=== PATIENT | male | born 1955 | race Caucasian/White ===

== ENCOUNTER 2023-10-10 05:22 | Inpatient (IN) ==
[2023-10-10] MEDS ORDERED: MIDAZOLAM HCL 5 MG/ML 2ML VIAL IV ONE (08:43)
[2023-10-10] MEDS ORDERED: ETOMIDATE 2 MG/ML 20 ML VIAL IV ONE (08:43)
--- NOTE | 2023-10-10 10:57 | Critical Care Consultation ---
Date of Consultation October 10, 2023 Assessment & Plan (1) ARF (acute renal failure): (2) HTN (hypertension): (3) CHF (congestive heart failure): (4) COPD (chronic obstructive pulmonary disease): (5) Sepsis: (6) Acute hypoxic respiratory failure: Plan Assessment: Pt is a 67 yo male who presented to the hospital on 10/09 from [facility] for respiratory distress and possible sepsis/septic shock, admitted to the ICU for need for pressors and for need for mechanical ventilation due to worsening resp status. Critical care indication: Need for mechanical ventilation Need for pressor support Plan: Neurologic CAM ICU: pt intubated Sedation: none Analgesia: none Cardiac BPs noted to be low, Levophed and phenylephedrine ggt Tachycardic as well, trop at facility 62, here is 81.7, repeat pending Last echo unknown, pending has known hx of CHF per outside facility but unclear if he has been following with any all round logger for this Respiratory Hx COPD, pt notes 3L baseline O2 use and has a CPAP/bipap at night worsening resp status at this point is COPD exac vs CHF exac vs possible pneumonia vs iatrogenic with concurrent renal failure and worsened status after morphine, but may also be a mix of several etiologies ABG notable for resp acidosis with underlying metabolic alkalosis CXR notable for bilateral airspace opacities likely pulm edema but may have superimposed infectious/inflammatory component, R>L pleural effusions, Pt was intubated this afternoon 10/09 due to worsening resp status Gastrointestinal Diet: NPO Renal/electrolytes Cr from outside facility noted to be 4.76, here 4.44, no baseline available Acute renal failure in the setting of CXR findings suggestive of congestive failure, nephro consulted and defer dialysis for now UA shows + leukocyte est and nitrites as well as blood and protein so UTI present which may or may not be contributing to his overall worsening condition UA also remarkable for blood and calc oxalate crystals and further hx notes urinary frequency and difficulty the past few days, so may have stone/possible obstruction, CT abd deferred at this time, but once pt stabilizes will consider for further workup of stones Genitourinary Despite remarkable kidney function he is producing urine Robertson catheter draining urine at this time Strict I/O's Endocrine Insulin per protocol Hematologic Hgb 9.9 at outside facility, 8.4 today Unknown baseline hgb, will continue to trend for signs of active bleeding but at this time no clear source Infectious disease WBC count at outside facility was 41, 44 here today Was febrile at sending facility and became febrile here as well, procal was noted to be 81.3 source may be urinary or pulm MRSA nares positive Biofire wnl, blood cultures pending Integumentary Noted to have some redness like rash under R > L breast tissue fold Lines/access IJ cath in place Prophylaxis DVT ppx: peferred at this time with question of bleed GI ppx: protonix IV Thank you the opportunity to participate in this patient's care. Please see attending documentation for further recommendations. Supervising Physician Co-Signing Physician Notes Patient seen and examined. EMR reviewed. Discussed extensively with critical care JUANITA as well as with family practice resident and agree with assessment plan as noted. 67-year-old male with minimal medical history in our system transferred from outside hospital due to acute renal failure, hypoxemic respiratory failure, and hypotension requiring vasopressors. On arrival repeat labs were performed which confirmed leukocytosis as well as acute renal failure. Nephrology consultation has been obtained. An arterial line was placed. He is required escalating doses of vasopressors. Quick look echocardiogram revealed relatively preserved ejection fraction. Unclear how much crystalloid he got in the outpatient setting however he has pulmonary infiltrates so defer additional fluids at this point in time. He required central line placement due to requirement for 2 vasopressor agents. We are awaiting repeat labs. If he goes on to develop dense renal failure which would require renal replacement therapy, he will need to be transferred to a tertiary facility as he is 2 pressor requirements would likely necessitate need for CVVH which not available at our institution. As the patient's hemodynamics deteriorated he continued to be dependent on BiPAP with respiratory acidosis. Decision was made to intubate. Please refer to separate procedure notes. He is currently sedated. Await follow-up labs. Will continue antibiotics. Check random Vanco level. Random cortisol was appropriate. He is intubated may consider noninvasive cardiac output evaluation to see whether or not he still fluid responsive or not. Awaiting echocardiogram. Trend cardiac markers. Family updated at bedside. They are aware the patient may need to be transferred to an outside facility History of Present Illness Reason for Consultation: Respiratory failure Requesting Physician: Dr. Rex Ritter Attending Physician: Ju M Landon, DO History of Present Illness Pt is a 67 yo male with a past med hx of COPD on 3L O2 baseline, CHF, and HLD who presented to [facility] 10/08 for 1 week of weakness, worsening shortness of breath, and fall without head trauma, transferred to [facility] on 10/09 for worsening respiratory status. Per hospital records from [facility], pt noted to have had 1 week of generalized weakness, fatigue, and increased shortness of breath. He is on 3L O2 baseline for his COPD and experienced a fall onto his butt several days ago without head trauma. Per outside facility note, pt's noted he has been spacing out the last week or so as well. Concern with tachycardia, worsening resp status, and hypotension, and fever with marked leukocytosis for sepsis/septic shock. Got 2 L crystalloid fluids at facility and while on route was given morphine with drop in blood pressure and worsening alertness. WBC count at noted to be 41, Cr 4.76 with no noted hx of CKD. Today, pt arrives groggy but arousable to verbal stimuli, answering questions appropriately. States he only currently has pain over his buttock area right n ow. In respiratory distress on bipap. Allergies Allergy/AdvReac Type Severity Reaction Status Date / Time No Known Allergies Allergy Unknown Verified 10/13/03 16:57 Patient History Social History Smoking Status: Former smoker Hx Alcohol Use: Yes Alcohol type: beer Hx Substance Use: No Preferred Language: Bengali Communication Ability: Effective Commercial Sales Representative Required: No Beliefs That Will Affect Care: None Current Living Situation: Spouse Other Information That Helps Us Care for You: No Feels Safe at Home: Yes Safety Concerns: Feels Safe At This Time Assistive Devices: Cane, CPAP, Denture - Upper, Denture - Lower, Glasses and Walker Review of Systems Review of Systems: All systems reviewed & are unremarkable except as noted in HPI & below Physical Exam Physical Exam: General: Pt is groggy, but awakens to verbal stimuli and responds appropriately, now intubated and on mechanical vent, diaphoretic HEENT: Normocephalic, atraumatic, Resp: On vent, Cardio: Regular rhythm but tachycardic, no murmurs, pitting edema noted bilaterally GI: Soft and nontender, nondistended, bowel sounds active Skin: Warm, dry, red rash/skin irritation noted under R>L skin below breast fold Resident Activity Tracking Resident Involvement: Resident Care Provided Care Provided: Adult Hospital Medicine
--- NOTE | 2023-10-10 11:06 | History & Physical Report ---
Date of Service October 10, 2023 Assessment & Plan (1) Sepsis: Plan: Sepsis, suspect pneumonia At [facility] with an acute leukocytosis of 41, normal lactate, x-ray concerning for right middle lobe pneumonia Repeat labs pending at time of direct admission Chest x-ray: Bilateral airspace opacities and right greater than left pleural effusions consistent with CHF/fluid overload, consolidative pneumonia cannot be excluded Patient is with a severe acute respiratory acidosis and chronic underlying metabolic alkalosis on admission Received 2 L crystalloid for sepsis resuscitation prior to transfer. Additional fluids not indicated admission as he had initial resuscitation at outside hospital and is overtly volume overloaded Due to hypotension with concurrent fluid overload, norepinephrine has been started in the ICU Blood cultures, sputum culture, bio fire, procalcitonin are pending MRSA nares pending - On cefepime On BiPAP - DDx includes urinary. Pt with resp sx preceding admit for at least 2 days. UA is infected appearing and PCT is >80 consistent with gram negative sepsis. Bcx pending (2) ARF (acute renal failure): Plan: No known history of kidney dysfunction per patient's Presents with acute volume overload, hyperkalemia at 5.1, and creatinine acutely elevated greater than 4 at outside hospital. Per he has been an uric for more than 48 hours Nephrology consulted, patient may require temporary dialysis due to acute volume overload with hyperkalemia and renal failure. Patient has been hypotensive now improved on pressors, follow UOP. 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 Echo pending Patient with acute volume overload with concurrent renal failure. Nephrology consulted as noted - Troponin 81, repeat 320. No territorial ischemia on EKG. LIkely severe demand with critical illness/sepsis. Echo pending EKG sinus tach first degree AVB (6) HTN (hypertension): Plan: Lisinopril held for renal failure, sepsis, and hypotension requiring pressors Plan DVT prophylaxis: SCDs, pending evaluation due to falls and hemoglobin less than 10 Admission and Anticipated Discharge Date Admission Date: October 10, 2023 History of Present Illness Primary Care Provider: DO Terrance Tavarez is a 67-year-old male with past medical history of COPD, CHF, emphysema who is excepted overnight as a transfer from [facility] where he presented with fever, confusion, hypoxia, and falls. At that facility he was febrile, tachycardic, hypoxic to the 60s, and was reported to have a white blood cell count of 41 and creatinine of 4.9 (confirmed on paperwork to be less than 1), and with potassium of 4.9. Patient was treated at that facility with 2 L of crystalloid, Zosyn, and vancomycin. Placement was placed on BiPAP for respiratory distress. Due to concern for his respiratory status, potential need for intubation patient was recommended for transfer where critical care services were available. Patient was accepted for transfer overnight and arrived at the ICU at approximately 10:30 AM on 10/09. Patient had received a dose of morphine with some sedation and worsened hypotension while in room. Discussed by dimitris with [facility]. - CBC 0146hrs: Leukocyte count 41, hgb 9.9 - Creatinine: 4.76 - Lactic 1.3 - Blood Cultures: Drawn at 0016, ngtd - No prior labs for comparison. Collateral collected from patient's Paradise Dueñas who is available at time of admission. She is also billable by phone at [phone] for updates. She reports that Terrance has a history of COPD and CHF. He is not on any blood thinners other than aspirin and has not had a history of blood clots. He does have a history of heart failure without prior history of stents or heart attack, is generally compliant with his Lasix. She reports he was in his normal state of health up until about 4 days ago. At that time he was trying to clean under a table when he fell and struck his buttock. He had had low back pain and sciatica although she does not remember which side. He did not have a head strike or loss of consciousness. Was doing okay until Saturday, but again slipped and fell striking his abdomen on the counter and did not seem to recover strength from that time. He was not having any cough, fever, or chills at that time. Approximately 2 days ago/Saturday prior to admission he did start to develop increased cough, thick and sputum production, chills, and felt clammy. His breathing worsened and his normal COPD cough seemed much worse. He did not have any bleeding that she was aware of and did not syncopize. He did not improve over the next day, and then became very confused and talking on the phone did not recognize who she was. Due to his worsening and confusion they then presented to [facility]. She confirms this medications are aspirin 81 mg, Trelegy inhaler, nebulizers with albuterol as needed, lisinopril 20 mg, Lasix 40 mg, oxy/apap for back pain. No blood thinners/warfarin/DOAC. His PCP is Dr. Mcgrath in [place] He has no history of renal failure to her knowledge, and she believes that his last blood work his kidney numbers were normal. His creatinine of greater than 4 is believed to be new. She notes that for the 24 hours prior to presenting to [facility] he did not have any urine production at all despite taking his Lasix. Medical History: Reviewed Medications: Reviewed Surgical History: Reviewed Family history: Reviewed Allergies: Reviewed. No known drug allergies Social History: Remote tobacco abuse in remission. Rare social alcohol use once or twice a year. No recreational drug use Code Status: Full code [facility] lab review: Vitals: 38.6/131 bpm/respiratory rate 30/BP 110/72/SpO2 97% on nonrebreather, hypoxic at 70% prior. ABG pH 7.25/pCO2 63 Chest x-ray:? Obscured right heart border silhouette suspicious for pleural effusion versus underlying consolidative process BP 90/50 ABG 0345 hrs.: pH 7.25/pCO2 63/pO2 77/HCO3 26.9 VBG 0424 hrs.: pH 7.23/pCO2 68/HCO3 27.7 Allergies Allergy/AdvReac Type Severity Reaction Status Date / Time No Known Allergies Allergy Unknown Verified 10/13/03 16:57 Past Med/Surg History Problem List (Updated 10/10/23 @ 15:21 by Sugey Guerrier DO) Acute hypoxic respiratory failure ARF (acute renal failure) HTN (hypertension) CHF (congestive heart failure) COPD (chronic obstructive pulmonary disease) Pneumonia Sepsis Social History Smoking Status: Former smoker Hx Alcohol Use: Yes Alcohol type: beer Hx Substance Use: No Preferred Language: Mauritian Communication Ability: Effective Locker Attendant Required: No Beliefs That Will Affect Care: None Current Living Situation: Spouse Other Information That Helps Us Care for You: No Feels Safe at Home: Yes Safety Concerns: Feels Safe At This Time Assistive Devices: Cane, CPAP, Denture - Upper, Denture - Lower, Glasses and Walker Physical Exam Physical Exam: General: Somnolent, gradually improving in ICU but initially obtunded on BiPAP HEENT: Atraumatic, normocephalic.. Vision and hearing grossly intact Pulm: On BiPAP. Coarse. Cardiac: Tachycardic. Radial pulses intact and symmetrical. Abdominal: Nontender, nondistended, soft. BS present. No overlying contusions are noted PG Care Time/CCT Total # of Minutes Spent Total Time Spent with Patient: Total time spent is greater than 50% in coordination of care (as documented) at patient's floor/unit and/or counseling patient: Coding Level of Care Code 03977 INT INP/OBS CARE 75MIN Diagnoses Sepsis A41.9 ARF (acute renal failure) N17.9 Pneumonia J18.9 COPD (chronic obstructive pulmonary disease) J44.9 CHF (congestive heart failure) I50.9 HTN (hypertension) I10
[2023-10-10 11:08] LABS: iSTAT Allen Test Pass; iSTAT Art Bld Gas pCO2 Correct 71 mmHg (35-46); iSTAT Art Bld Gas pH Corrected 7.186 (7.35-7.45); iSTAT Arterial Blood Gas HCO3 27 meg/L (19-24); iSTAT Arterial Blood Gas pCO2 68 mmHg (35-46); iSTAT Arterial Blood Gas pO2 85 mmHg (80-95); iSTAT Arterial Blood Gas pO2 C 91; iSTAT Carbon Dioxide 29 mmol/L (24-31); iSTAT FiO2 70 %; iSTAT Hematocrit 30 % (42-52); iSTAT Hemoglobin 10.2 g/dl (14.0-18.0); iSTAT Potassium 5.1 mmol/L (3.3-5.0); iSTAT Site R Radial; iSTAT Sodium 131 mmol/L (135-144)
--- NOTE | 2023-10-10 11:33 | XRay Report ---
SINGLE VIEW CHEST CLINICAL HISTORY: Hypoxia FINDINGS: An AP, portable, semiupright chest radiograph is obtained. No prior studies are available f or comparison at the time of dictation. The cardiomediastinal silhouette is top normal for projection . There is pulmonary vascular congestion. Bilateral airspace opacities are noted. There are layering pleural effusions with dependent consolidation, right larger than left. No pneumothorax is seen. The bony thorax is grossly intact. IMPRESSION: 1. There is evidence of congestive failure. 2. Bilateral airspace opacities likely represent pulmonary edema. Correlate clinically for evidence o f a superimposed infectious/inflammatory pneumonitis. Radiographic follow-up to resolution is recomme nd. 3. Right larger than left pleural effusions with dependent consolidation. ACT 112: Negative or not required by law. Electronically signed by: Mehrdad Arteaga M.D. 10/10/2023 11:31 AM
[2023-10-10 12:01] LABS: Alanine Aminotransferase 41 U/L (7-52); Albumin Globulin Ratio 0.9 (0.9-2); Albumin Level 2.6 gm/dl (3.4-5.0); Alkaline Phosphatase 99 U/L (34-104); Anion Gap 10 (3-11); Aspartate Aminotransferase 101 U/L (13-39); BUN Creatinine Ratio 13.1 (10-20); Bilirubin,Total 0.7 mg/dl (0.2-1.0); Blood Urea Nitrogen 58 mg/dl (6-23); Calcium 6.8 mg/dl (8.6-10.3); Carbon Dioxide 21 mmol/L (21-32); Chloride 104 mmol/L (98-107); Est GFR (African American) 14.9 ml/min; Est GFR (Non-African American) 12.9 ml/min; Globulin 2.9 gm/dl (2.5-4.0); Glucose 164 mg/dl (70-99(Fasting)); Magnesium 1.7 mg/dl (1.7-2.4); Phosphorus 4.5 mg/dl (2.5-4.9); Potassium 4.3 mmol/L (3.5-5.1); Sodium 135 mmol/L (136-145); Total Protein 5.5 gm/dl (6.0-8.3)
[2023-10-10 12:03] LABS: Hematocrit (blood only) 27.3 % (42.0-52.0); Hemoglobin 8.4 g/dl (14.0-18.0); Mean Corpuscular Hemoglobin 25.8 pg (25.0-34.0); Mean Corpuscular Hgb Conc 30.8 g/dL (32.0-36.0); Mean Platelet Volume 10.2 fL (9.4-12.4); Platelet Count 215 K/uL (130-400); RDW Coefficient of Variation 15.7 % (11.5-14.5); Red Blood Count 3.25 M/uL (4.70-6.10); White Blood Count 44.11 K/ul (4.8-10.8)
[2023-10-10 12:09] LABS: Acanthocytes 1+; Basophils # (auto) 0.04 K/uL (0.00-0.20); Basophils % (auto) 0.1 %; Immature Granulocytes # (auto) 1.65 K/uL (0.01-0.20); Immature Granulocytes % (auto) 3.7 %; Lymphocytes # (auto) 1.15 K/uL (1.20-3.40); Lymphocytes % (auto) 2.6 %; Monocytes % (auto) 3.2 %; Neutrophils # (auto) 39.87 K/uL (1.40-6.50); Neutrophils % (auto) 90.4 %; Polychromasia 1+; Rouleaux 1+; Toxic Vacuolation 1+
[2023-10-10 12:10] LABS: INR 1.1 (0.9-1.1); Prothrombin Time 11.7 Seconds (9.0-12.0)
[2023-10-10 12:14] LABS: Troponin I High Sensitivity 81.7 pg/ml (0-20)
[2023-10-10] MEDS ORDERED: STAT IV Infusion **Titration per Protocol STA ×5 (12:15→16:05)
[2023-10-10] MEDS: PANTOprazole 40 MG in SYRINGE 0 ML IV SCH (12:21)
[2023-10-10] MEDS: Patient's HEIGHT &/or WEIGHT Needed SCH (12:21)
[2023-10-10] MEDS: NOREPINEPHRINE/D5W 4 MG/250 ML PLCT IV SCH (12:24)
[2023-10-10] MEDS ORDERED: GLUCAGON FOR INJ 1 MG VIAL SQ PRN (12:24)
[2023-10-10] MEDS ORDERED: GLUCOSE 40% GEL 15 GM TUBE PO PRN (12:24)
[2023-10-10] MEDS ORDERED: DEXTROSE 50% 50 ML SYRINGE IV PRN (12:24)
[2023-10-10] MEDS ORDERED: CARBOHYDRATES FOR HYPOGLYCEMIA PO PRN (12:24)
[2023-10-10] MEDS ORDERED: GLUCOSE 10 TAB/TUBE PO PRN (12:24)
--- NOTE | 2023-10-10 12:30 | Procedure Note ---
Procedure Note Date of Service October 10, 2023 Note Procedure: Arterial Line Placement Attending: Dr. Hutton APC: Rachid Kim PA-C Indication: Hemodynamic monitoring Anesthesia: Lidocaine 1% Emergent Consent implied in the setting of clinical deterioration and need for close hemodynamic monitoring, ABG monitoring, frequent lab draws, etc. A time-out was completed verifying correct patient, procedure, site, positioning, and implant(s) or special equipment if applicable. Jez's test was performed to ensure adequate perfusion. Patient's LEFT wrist was prepped and draped in the usual sterile fashion. Ultrasound guidance was used to aid needle placement. A 20g Arrow arterial line was introduced into the LEFT Radial artery. Catheter was threaded, and the needle was removed with appropriate blood return. Good waveform was observed. The patient tolerated the procedure well. Confirmati on of placement with ultrasound. Blood Loss: Minimal Complications: None Procedural Ultrasound Guidance: Procedure Date: 10/10/2023 Indication: Hemodynamic Monitoring, Frequent ABGs/Lab draws. Attending: Dr. Hutton APC: Rachid Kim PA-C Artery Identified: YES Line confirmed in Artery with ultrasound: YES Complications: NONE Patient tolerated procedure: WELL Coding CPT Codes Tubes, Drains, and Vasc Access - Tubes, Drains, and Vasc Access: [id number] Arterial Cath/Cannulation Sampling/Monitoring/Transfusion ([id number]) [facility] [place] Procedure Codes (Charges) Tubes, Drains, and Vasc Access Procedure 1: Tubes, Drains, and Vasc Access: [id number] Arterial Cath/Cannulation Sampling/Monitoring/Transfusion
[2023-10-10 12:31] LABS: Appearance Urine Turbid (Clear); Bacteria Urine Automated None Seen (None Seen); Bilirubin Urine 1+ (Negative); Blood Urine 3+ (Negative); Color Urine Dark Yellow; Glucose Urine UA 1+ (Negative); Ketones Urine Trace (Negative); Leukocyte Esterase Urine 1+ (Negative); Nitrite Urine Negative (Negative); Protein Urine 2+ (Negative); RBC Urine Automated >20 /hpf (0-2); Specific Gravity Urine 1.033 (1.000-1.030); Urobilinogen Urine Negative (Negative)
[2023-10-10] MEDS: INSULIN ASPART PER UNIT CHARGE SC SCH (12:43)
[2023-10-10] MEDS: ACETAMINOPHEN 1,000 MG/100 ML VIAL IV STA (12:43)
[2023-10-10 12:45] LABS: Calcium Oxalate Crystals Urine Present (None Prsent)
[2023-10-10] MEDS: NALOXONE HCL 0.4 MG/1 ML VIAL/CARP ONE (12:50)
[2023-10-10] MEDS: ICU Protocol for HYPERglycemia SCH (12:51)
[2023-10-10] MEDS: VASOPRESSIN 20 UNITS in 0.9 % SODIUM CHLORIDE 100 ML IV SCH (12:55)
[2023-10-10 13:00] LABS: Adenovirus PCR Not Detected (NotDetected); Bordetella parapertussis PCR Not Detected (NotDetected); Bordetella pertussis PCR Not Detected (NotDetected); Chlamydia pneumoniae PCR Not Detected (NotDetected); Coronavirus 229E PCR Not Detected (NotDetected); Coronavirus CoV-2 (COVID19)PCR Not Detected (NotDetected); Coronavirus HKU1 PCR Not Detected (NotDetected); Coronavirus NL63 PCR Not Detected (NotDetected); Coronavirus OC43PCR Not Detected (NotDetected); Human Metapneumovirus PCR Not Detected (NotDetected); Influenza A PCR Not Detected (NotDetected); Influenza B PCR Not Detected (NotDetected); Mycoplasma pneumoniae PCR Not Detected (NotDetected); Parainfluenza Virus 1 PCR Not Detected (NotDetected); Parainfluenza Virus 2 PCR Not Detected (NotDetected); Parainfluenza Virus 3 PCR Not Detected (NotDetected); Parainfluenza Virus 4 PCR Not Detected (NotDetected); Respiratory Syncytial VirusPCR Not Detected (NotDetected); Rhinovirus/Enterovirus PCR Not Detected (NotDetected)
--- NOTE | 2023-10-10 13:10 | Nephrology Consultation ---
Date of Consultation October 10, 2023 Assessment & Plan (1) ARF (acute renal failure): Plan 67-year-old gentleman with no history of CKD, b/l cr 1.0 mg/dl admitted with sepsis secondary to pneumonia and developed LUCY and hyperkalemia. On admission creatinine was 4.4, potassium 5.1 and bicarb 21. Was significantly hypotensive with systolic blood pressure in 80s which slightly improved and currently requiring 2 pressor. Total urine output over last 24 hours around 450 mL. Cli nically volume overloaded with pulmonary congestion and bilateral pleural effusion as well as pneumonia. Repeat labs showed potassium improved to 4.3, bicarb 21. Blood pressure slightly improved but currently requiring 2 pressor. Urine output remains low. --Continue hemodynamic support with pressors, aim to keep MAP above 65. No pressing indication for emergency dialysis at this time. However, with improvement in blood pressure, if urine output does not improve, recommend Bumex 4 mg iv x 1 dose. However if still volume overloaded with no response and any electrolyte abnormality, may need temporary dialysis catheter and emergency dialysis. --Monitor intake and output, continue to monitor electrolyte closely. Thank you for allowing me to participate in your patient's care. History of Present Illness Reason for Consultation: Acute kidney injury, hyperkalemia, oligoanuria, sepsis Attending Physician: Ju Navarrete DO History of Present Illness Mr. Terrance Dueñas is a 67-year-old male with PMH of COPD, CHF, emphysema, obesity admitted with septic shock and Lucy possibly secondary to pneumonia. Nephrology consult requested for management of above and evaluate for need for urgent dialysis. EMR records were reviewed in detail during visit. Terrance was initially presented to [facility] where he presented with 2 days history of cough, fever, chills, worsening shortness of breath, confusion, hy poxia, and fall at home. Overnight he was transferred to [facility]. At [facility] he was febrile, tachycardic, hypoxic to the 60s, and was reported to have a white blood cell count of 41 and creatinine of 4.9 ( baseline cr was reported to be 1.0). He was treated at that facility with 2 L of crystalloid, Zosyn, and vancomycin. He was placed on BiPAP for respiratory distress. Due to concern for his respiratory status, potential need for intubation, he was transfer here. Prior to going to the hospital for almost 24 hours he was an uric despite taking diuretics. Report from outside hospital showed he had 400 mL of urine output while he was there and since he came here he had around 40 mL of urine output so far. Blood pressure was in low 80s, started on Levophed with slight improvement in blood pressure to 120s. Initial lab showed potassium of 5.1 which slightly improved to 4.3 on repeat lab. Creatinine was 4.4 bicarbonate 21, corrected calcium was 7.8. Chest x-ray showed pulmonary vascular congestion, bilateral pleural effusion and consolidation. He was continued on empiric antibiotic and started on BiPAP. Past medical history significant for COPD, CHF, hypertension and obesity. No known history of CKD, according to the report baseline creatinine until recently was 1.0. h/o CHF, has been on Lasix. At home he was on lisinopril 20 mg, Lasix 40 mg. He was seen while in ICU, wearing CPAP but denied any shortness of breath. Urine output was low. Allergies Allergy/AdvReac Type Severity Reaction Status Date / Time No Known Allergies Allergy Unknown Verified 10/13/03 16:57 Patient History Social History Smoking Status: Former smoker Hx Alcohol Use: Yes Alcohol type: beer Hx Substance Use: No Preferred Language: [place] Communication Ability: Effective Janitorial Assistant Required: No Beliefs That Will Affect Care: None Current Living Situation: Spouse Other Information That Helps Us Care for You: No Feels Safe at Home: Yes Safety Concerns: Feels Safe At This Time Assistive Devices: Cane, CPAP, Denture - Upper, Denture - Lower, Glasses and Walker Review of Systems Review of Systems: Detailed review of system was done and pertinent positives and negatives are mentioned above. Physical Exam Constitutional: WD/WN, vitals as above + acute distress and + ill appearing wearing BiPAP Eyes: + anicteric sclerae Respiratory: Auscultation: + diminished lung sounds and + crackles Cardiovascular: Rate/Rhythm: regular rate and + tachycardic Extremities: + edema Gastrointestinal (Abdomen): abdomen obese, soft, non tender. Musculoskeletal: Extremities: extremities normal to inspection Skin: no rashes, warm and dry Neurologic: no focal motor deficits Psychiatric: Orientation: alert and oriented x 3 Affect: euthymic affect Results & Data Vital Signs (Past 12 Hours) Vital Signs Temp Pulse Resp BP Pulse Ox O2 Del Method FiO2 10/10/23 12:30 38.4 C H 105 H 20 88 L 10/10/23 12:12 121/68 10/10/23 12:00 106 H 22 91 10/10/23 11:30 102 H 22 92 10/10/23 11:30 87/34 L 10/10/23 11:16 105 H 25 H 93 10/10/23 11:16 79/29 L 10/10/23 11:04 113 H 26 H 94 60 10/10/23 11:02 77/28 L 10/10/23 11:02 77/28 L 10/10/23 11:02 112 H 21 92 10/10/23 10:45 113 H 22 97 BiPAP 60 10/10/23 10:45 98/71 L PG Care Time/CCT Total # of Minutes Spent Total Time Spent with Patient: Total time spent is greater than 50% in coordination of care (as documented) at patient's floor/unit and/or counseling patient: Coding Level of Care Code 10365 IN/OBS CONSULT LVL 5,80M Diagnoses ARF (acute renal failure) N17.9
[2023-10-10 13:38] LABS: Creatine Kinase 3841 U/L (30-223)
[2023-10-10] MEDS ORDERED: Nursing to Pharmacy Communication SCH ×2 (13:45→15:00)
--- NOTE | 2023-10-10 13:48 | Procedure Note ---
Procedure Note Date of Service October 10, 2023 Note CENTRAL LINE PROCEDURE NOTE: Procedure: Central Line Placement Provider: Teodoro Hutton MD Indication: Central Drug Administration, Poor Venous Access, Multiple Lab Draws Necessary, etc. Anesthesia: 5 cc 1% lidocaine locally Site: Initial attempt left subclavian, transition to left internal jugular Verbal consent was obtained from family at the bedside after risk and benefits were clearly explained A time-out was completed verifying correct patient, procedure, site, positioning, and implants(s) or special equipment if applicable. Patients left neck and infraclavicular fossa was cleansed and draped in the typical sterile fashion using Chloraprep. Landmarks were identified. Initial attempt was made in the left subclavian vein. The vein was easily accessed however I was unable to pass the wire despite reaccessing the vein and repositioning on several occasions. Elected at that point in time to proceed to an internal jugular approach. The Internal Jugular Vein and Carotid Artery were identified using ultrasound. The internal Jugular vein was cannulated under direct ultrasound guidance using an introducer needle on a syringe. Good venous blood return was maintained prior to removal of syringe from introducer needle. Using Seldinger Technique, a guide wire was advanced through the introducer needle without resistance. The introducer needle was removed and ultrasound images were obtained of the guide wire within the Internal Jugular Vein and saved to the patients medical record. A small incision was made in penetrating fashion at the guide wire insertion site utilizing an 11 blade scalpel. The dilator was advanced to the vessel without resistance. The dilator was exchanged for the triple lumen catheter which was advanced into the vessel without resistance. The guide wire was removed intact from the catheter without issue. Claves were placed on each catheter tip with confirmation of good blood flow from each lumen. Each port was easily flushed with sterile saline. The catheter was placed at the hub and sutured in place. BioPatch was applied to the catheter and a sterile Tegaderm dressing was applied over the catheter with careful attention to sterility. Patient tolerated procedure well. No immediate complications were met. Post procedure x-ray was ordered and is pending Estimated blood loss: 10 mL Coding CPT Codes Tubes, Drains, and Vasc Access - Tubes, Drains, and Vasc Access: [id number] Place catheter in vein superior or inferior vena cava ([id number]) Tubes, Drains, and Vasc Access - Tubes, Drains, and Vasc Access: [id number] U ltrasound Guidance For Vascular ([id number]) [facility] [place] Procedure Codes (Charges) Tubes, Drains, and Vasc Access Procedure 1: Tubes, Drains, and Vasc Access: [id number] Place catheter in vein superior or inferior vena cava Procedure 2: Tubes, Drains, and Vasc Access: [id number] Ultrasound Guidance For Vascular
[2023-10-10] MEDS: CEFEPIME 2,000 MG in SYRINGE 0 ML IV STA (13:49)
[2023-10-10] MEDS: CALCIUM GLUCONATE 1,000 MG/60 ML BAG IV SCH (13:49)
--- NOTE | 2023-10-10 14:19 | XRay Report ---
SINGLE VIEW CHEST CLINICAL HISTORY: Central venous catheter placement FINDINGS: An AP, portable, upright chest radiograph is compared to study performed earlier the same d ay 10/10/2023. The examination is degraded by portable technique and apical lordotic positioning. A le ft internal jugular central venous catheter is in place. The tip projects over the SVC. The cardiomed iastinal silhouette is top normal for projection. There is pulmonary vascular congestion. Bilateral a irspace opacities are noted. There is elevation right hemidiaphragm. Layering pleural effusions are s een with dependent Consolidation, right larger than left. No pneumothorax is seen. The bony thorax is grossly intact. IMPRESSION: 1. A left internal jugular central venous catheter has been placed as above. No pneumothorax is ident ified post procedure. 2. There is evidence of congestive failure. 3. Bilateral airspace opacities are similar to previous, as are right large left pleural effusions wi th dependent consolidation. ACT 112: Negative or not required by law. Electronically signed by: Mehrdad Arteaga M.D. 10/10/2023 2:17 PM
[2023-10-10] MEDS ORDERED: Concentrate Norepinephrine IV Infusion ONE (14:24)
[2023-10-10] MEDS ORDERED: Concentrate Phenylephrine IV Infusion ONE (14:36)
[2023-10-10] MEDS: NOREPINEPHRINE/NSS 16 MG/250 ML BAG IV SCH (14:47)
[2023-10-10] MEDS: propofoL 1,000 MG/100 ML VIAL IV SCH (14:50)
[2023-10-10] MEDS: fentaNYL citrate 2,500 MCG/250 ML BAG IV SCH (15:07)
[2023-10-10] MEDS: PROPOFOL IV EMULSION 10 MG/ML 100 ML VIAL IV ONE (15:08)
[2023-10-10] MEDS: PHENYLEPHRINE/NSS 100 MG/250 ML BAG IV SCH (15:09)
[2023-10-10] MEDS: PHENYLEPHRINE HCL 25 MG/250 ML NSS IV ONE (15:11)
--- NOTE | 2023-10-10 15:14 | XRay Report ---
XR chest 1V portable CLINICAL HISTORY: Post intubation TECHNIQUE: Single frontal radiograph of the chest was obtained. Comparison: Comparison is made to chest radiograph 10/10/2023 FINDINGS: Endotracheal tube terminates 7 mm from the isidoro. Enteric tube tip and side-port lie below the diaph ragm. Prominence and cephalization of the vasculature is seen. No evidence of pleural effusion or pne umothorax. IMPRESSION: 1. Endotracheal tube terminates 7 mm from the isidoro and can be withdrawn approximately 2 cm for imp roved positioning. 2. Bilateral airspace opacities again seen. ACT 112: Negative or not required by law. Electronically signed by: Gopal Asif M.D. 10/10/2023 3:13 PM
[2023-10-10 15:24] LABS: iSTAT Art Bld Gas pCO2 Correct 78 mmHg (35-46); iSTAT Art Bld Gas pH Corrected 7.111 (7.35-7.45); iSTAT Arterial Blood Gas HCO3 25 meg/L (19-24); iSTAT Arterial Blood Gas pCO2 77 mmHg (35-46); iSTAT Arterial Blood Gas pH 7.12 (7.35-7.45); iSTAT Arterial Blood Gas pO2 97 mmHg (80-95); iSTAT Arterial Blood Gas pO2 C 99; iSTAT Carbon Dioxide 27 mmol/L (24-31); iSTAT FiO2 100 %; iSTAT Hematocrit 34 % (42-52); iSTAT Hemoglobin 11.6 g/dl (14.0-18.0); iSTAT Potassium 4.8 mmol/L (3.3-5.0); iSTAT Site Art Line; iSTAT Sodium 129 mmol/L (135-144)
[2023-10-10] MEDS ORDERED: VANCOMYCIN CONSULT ACTIVE PRN (15:38)
--- NOTE | 2023-10-10 15:43 | Procedure Note ---
Procedure Note Date of Service October 10, 2023 Note INTUBATION PROCEDURE NOTE: Provider: Teodoro Hutton MD A time-out was completed verifying correct patient, procedure, site, positioning. Patient was evaluated and required intubation for hypoxemic hypercarbic respiratory failure in the setting of hemodynamic instability. Sedative agent used: 40 mg etomidate, 4 mg Versed, 10 cc propofol Paralysis agent used: None Discussed with patient. He agreed to proceed. Written consent not conceivable due to altered mental status and urgency of situation The patient was prepared in the appropriate fashion. Sedation was achieved utilizing etomidate and Versed, per [] administration. The patient was preoxygenated on BiPAP 100% with a PEEP of 8. Once he was sedated, the mask was removed and video laryngoscopy was performed yielding a good view of the cords. Previously tested 8.0 endotracheal tube had been loaded on the stylette and lubricated. It was seen passing the cords. Stylette was removed. Balloon inflated. Appropriate Colorimetric change was appreciated. Bilateral breath sounds were heard without air sounds in the abdomen. Post Intubation Chest X-ray confirms placement without pneumothorax. Tube was withdrawn about 2 cm Patient tolerated the procedure well and there were no immediate complications. Coding CPT Codes Resuscitation - Resuscitation: 22842 Endotracheal Intubation, emergency (PG [id number]) [facility] [place] Codes (Charges) Resuscitation Resuscitation: 25066 Endotracheal Intubation, emergency
--- NOTE | 2023-10-10 15:44 | Electrocardiogram Report ---
Test Reason : Blood Pressure : / mmHG Vent. Rate : 113 BPM Atrial Rate : 113 BPM P-R Int : 214 ms QRS Dur : 106 ms QT Int : 300 ms P-R-T Axes : 059 073 035 degrees QTc Int : 411 ms Sinus tachycardia with 1st degree A-V block Otherwise normal ECG When compared with ECG of 08-OCT-2003 15:12, Vent. rate has increased BY 49 BPM Confirmed by Erlin De La Cruz ([id number]) on 10/10/2023 3:44:14 PM Referred By: Ju Navarrete Confirmed By:Erlin De La Cruz
--- NOTE | 2023-10-10 15:55 | Billing Data ---
Date of Service October 10, 2023 Patient is critically ill with multiorgan system dysfunction/failure. A total of 54 minutes of critical care time exclusive of procedures was spent in evaluation management coordination of care of this patient. Significant probability for clinical deterioration and/or Coding Level of Care Code 69075 CRITICAL CARE 1ST 30-74M
[2023-10-10 16:39] LABS: BUN Creatinine Ratio 13.1 (10-20); Creatinine Clr Calc Pharmacy 19.5 ml/min; Est GFR (African American) 12.6 ml/min; Est GFR (Non-African American) 10.9 ml/min; Potassium 4.9 mmol/L (3.5-5.1); Troponin I High Sensitivity 320.2 pg/ml (0-20)
[2023-10-10 16:51] LABS: iSTAT Art Bld Gas pCO2 Correct 60 mmHg (35-46); iSTAT Art Bld Gas pH Corrected 7.198 (7.35-7.45); iSTAT Arterial Blood Gas HCO3 23 meg/L (19-24); iSTAT Arterial Blood Gas pCO2 59 mmHg (35-46); iSTAT Arterial Blood Gas pO2 88 mmHg (80-95); iSTAT Arterial Blood Gas pO2 C 90; iSTAT Carbon Dioxide 25 mmol/L (24-31); iSTAT Hematocrit 32 % (42-52); iSTAT Hemoglobin 10.9 g/dl (14.0-18.0); iSTAT Potassium 4.7 mmol/L (3.3-5.0); iSTAT Site Art Line; iSTAT Sodium 129 mmol/L (135-144)
--- NOTE | 2023-10-10 17:35 | XCELERA ---
[id number]
[2023-10-10 22:37] LABS: iSTAT Art Bld Gas pCO2 Correct 49 mmHg (35-46); iSTAT Art Bld Gas pH Corrected 7.287 (7.35-7.45); iSTAT Arterial Blood Gas HCO3 23 meg/L (19-24); iSTAT Arterial Blood Gas pCO2 47 mmHg (35-46); iSTAT Arterial Blood Gas pO2 141 mmHg (80-95); iSTAT Arterial Blood Gas pO2 C 146; iSTAT Carbon Dioxide 25 mmol/L (24-31); iSTAT FiO2 100 %; iSTAT Hematocrit 31 % (42-52); iSTAT Hemoglobin 10.5 g/dl (14.0-18.0); iSTAT Potassium 4.2 mmol/L (3.3-5.0); iSTAT Site Art Line; iSTAT Sodium 130 mmol/L (135-144)
[2023-10-10] MEDS: NOREPINEPHRINE/D5W 4 MG/250 ML IV ONE (22:57)
[2023-10-10 23:29] LABS: BUN Creatinine Ratio 14.9 (10-20); Calcium 8.5 mg/dl (8.6-10.3); Creatinine Clr Calc Pharmacy 20.4 ml/min; Est GFR (African American) 13.3 ml/min; Est GFR (Non-African American) 11.5 ml/min; Potassium 4.3 mmol/L (3.5-5.1)
[2023-10-11] MEDS: CEFEPIME 1,000 MG in SYRINGE 0 ML IV SCH (00:10)
[2023-10-11 04:59] LABS: iSTAT Art Bld Gas pCO2 Correct 50 mmHg (35-46); iSTAT Art Bld Gas pH Corrected 7.276 (7.35-7.45); iSTAT Arterial Blood Gas HCO3 23 meg/L (19-24); iSTAT Arterial Blood Gas pCO2 48 mmHg (35-46); iSTAT Arterial Blood Gas pH 7.29 (7.35-7.45); iSTAT Arterial Blood Gas pO2 72 mmHg (80-95); iSTAT Arterial Blood Gas pO2 C 76; iSTAT Carbon Dioxide 24 mmol/L (24-31); iSTAT FiO2 60 %; iSTAT Hematocrit 32 % (42-52); iSTAT Hemoglobin 10.9 g/dl (14.0-18.0); iSTAT Potassium 4.4 mmol/L (3.3-5.0); iSTAT Site Art Line; iSTAT Sodium 130 mmol/L (135-144)
[2023-10-11 05:12] LABS: BUN Creatinine Ratio 16.6 (10-20); Calcium 8.6 mg/dl (8.6-10.3); Creatinine Clr Calc Pharmacy 23.4 ml/min; Est GFR (African American) 15.6 ml/min; Est GFR (Non-African American) 13.5 ml/min; Magnesium 2.3 mg/dl (1.7-2.4); Phosphorus 4.8 mg/dl (2.5-4.9); Potassium 4.5 mmol/L (3.5-5.1)
[2023-10-11 05:13] LABS: Hematocrit (blood only) 32.4 % (42.0-52.0); Hemoglobin 10.2 g/dl (14.0-18.0); Mean Corpuscular Hemoglobin 25.8 pg (25.0-34.0); Mean Corpuscular Hgb Conc 31.5 g/dL (32.0-36.0); Mean Platelet Volume 9.9 fL (9.4-12.4); Platelet Count 261 K/uL (130-400); RDW Coefficient of Variation 15.5 % (11.5-14.5); Red Blood Count 3.95 M/uL (4.70-6.10); White Blood Count 39.05 K/ul (4.8-10.8)
[2023-10-11 05:35] LABS: Basophils # (auto) 0.17 K/uL (0.00-0.20); Basophils % (auto) 0.4 %; Dohle Bodies 1+; Echinocytes 1+; Eosinophils # (auto) 0.02 K/uL (0.00-0.50); Eosinophils % (auto) 0.1 %; Immature Granulocytes # (auto) 1.17 K/uL (0.01-0.20); Lymphocytes # (auto) 1.51 K/uL (1.20-3.40); Lymphocytes % (auto) 3.9 %; Monocytes # (auto) 1.44 K/uL (0.11-0.59); Monocytes % (auto) 3.7 %; Neutrophils # (auto) 34.74 K/uL (1.40-6.50); Neutrophils % (auto) 88.9 %
--- NOTE | 2023-10-11 06:49 | Critical Care Progress Note ---
Date of Service October 11, 2023 Assessment & Plan (1) ARF (acute renal failure): (2) HTN (hypertension): (3) CHF (congestive heart failure): (4) COPD (chronic obstructive pulmonary disease): (5) Sepsis: (6) Acute hypoxic respiratory failure: Plan Assessment: Pt is a 67 yo male who presented to the hospital on 10/09 from [facility] for respiratory distress and possible sepsis/septic shock, admitted to the ICU for need for pressors and for need for mechanical ventilation due to worsened resp status. Critical care indication: Need for mechanical ventilation Need for pressor support 24 hour events: Intubated yesterday afternoon due to ongoing respiratory distress. Overnight he remained febrile overnight into today but was able to be weaned from FiO2 100% to 50% overnight and vasopressors are being weaned down gradually as well overnight into this morning. Blood, urine, and sputum cultures pending. CXR today shows better aeration of left lung but still persistent haziness of bilateral bases R>L. Plan: Neurologic CAM ICU: pt intubated, unable to obtain Sedation: propofol and fentanyl Analgesia: fentanyl Cardiac BPs low on admission, on Levophed, vasopressin, and phenylephedrine ggt with improvement in pressures to 110-120s/60s Current pressors: levophed weaned to 0.15 mcg/kg/min, vasopressin 0.04 unit/min, phenylephrine weaned off this morning Tachycardic as well, trop at facility 62, here is 81, repeat 320 Last echo unknown, echo here showed EF 65-70% with no wall motion abnormalities has known hx of CHF per outside facility but unclear if he has been following with any superintendent greens for this Respiratory Hx COPD, pt notes 3L baseline O2 use and has a CPAP/bipap at night worsening resp status at this point is COPD exac vs CHF exac vs possible pneumonia vs iatrogenic with concurrent renal failure and worsened status after morphine, but may also be a mix of several etiologies ABG notable for resp acidosis with underlying metabolic alkalosis CXR notable for bilateral airspace opacities likely pulm edema but may have superimposed infectious/inflammatory component, R>L pleural effusions, Pt was intubated this afternoon 10/09 due to worsening resp status Gastrointestinal Diet: NPOdue to intubated status Renal/electrolytes Cr from outside facility noted to be 4.76, on admission here was 4.44, no baseline available, improved today to 4.27 Acute renal failure in the setting of CXR findings suggestive of congestive failure, nephro consulted and defer dialysis for now UA shows + leukocyte est and nitrites as well as blood and protein so UTI present which may or may not be contributing to his overall worsening condition UA also remarkable for blood and calc oxalate crystals and further hx notes ur inary frequency and difficulty the past few days, so may have stone/possible obstruction, CT abd deferred at this time, but once pt stabilizes will consider for further workup of stones Genitourinary Despite remarkable kidney function he is producing urine Robertson catheter draining urine at this time, drains around 100 mL/hr Strict I/O's Endocrine Insulin per protocol Hematologic Hgb 9.9 at outside facility, 8.4 on admission now 10.2 today Unknown baseline hgb, will continue to trend for signs of active bleeding but at this time no clear source Infectious disease WBC count at outside facility was 41, 44 on admission now 39 today Was febrile at sending facility and continues to be febrile here overnight, procal was noted to be 81.3 source may be urinary or pulm, UA suggestive of UTI MRSA nares positive Biofire wnl, blood cultures and sputum cx pending Continue on vancomycin and cefepime Integumentary Noted to have some redness like rash under R > L breast tissue fold noted on admission Lines/access IJ cath in place, peripheral arterial line Prophylaxis DVT ppx: to start heparin GI ppx: protonix IV Thank you the opportunity to participate in this patient's care. Please see attending documentation for further recommendations. Admission and Anticipated Discharge Date Admission Date: October 10, 2023 Supervising Physician Co-Signing Physician Notes Patient seen and examined. EMR reviewed. Discussed with bedside critical care nurse and on multidisciplinary rounds as well as with family practice resident. Agree with assessment plan as noted. The patient had improvement in his ventilator settings. His hemodynamics are improved but he remains critically ill on multiple pressors. Awaiting culture data. Continue antibiotics. Hold tube feeding pending improvement in hemodynamics. Hemodynamically too unstable to consider ventilator liberation or weaning at this point time. Continue sedation. Ultrasound of the right chest demonstrated a small effusion which will be followed. If it increases in size, thoracentesis will be considered. Family updated at bedside The patient is critically ill at this point time with significant multiorgan dysfunction and significant probability of clinical decline and/or . A total of 40 minutes in critical care time was spent in evaluation management stabilization this patient Subjective Pt is a 67 yo male with a past med hx of COPD on 3L O2 baseline, CHF, and HLD who presented to [facility] 10/08 for 1 week of weakness, worsening shortness of breath, and fall without head trauma, transferred to [facility] on 10/09 for worsening acute hypoxic resp failure, acute renal failure, and hypotension requiring pressors. Today, pt remains intubated and sedated. No adverse overnight events per nursing staff other than ongoing fever. Pt appears comfortable at this time. Review of Systems Review of Systems: As per HPI above. Physical Exam Physical Exam: General: Intubated and sedated, HEENT: Normocephalic, atraumatic, Resp: On vent, no signs of resp distress at this time Cardio: Regular rate and rhythm, no murmurs, pitting edema noted bilaterally again today GI: Soft and nontender, some distention noted, bowel sounds hypoactive today Skin: Warm Results & Data Results & Data Vital Signs (Past 12 Hours) Vital Signs Temp Pulse Resp Pulse Ox FiO2 10/11/23 06:00 37.6 C H 96 H 28 H 93 10/11/23 05:55 50 10/11/23 05:30 37.7 C H 93 H 28 H 94 10/11/23 05:00 37.7 C H 86 28 H 96 10/11/23 05:00 60 10/11/23 04:50 50 10/11/23 04:30 37.8 C H 87 28 H 95 10/11/23 04:00 37.8 C H 85 28 H 96 10/11/23 03:30 37.9 C H 83 28 H 95 10/11/23 03:00 37.9 C H 85 28 H 95 10/11/23 02:44 28 H 60 10/11/23 02:30 37.8 C H 85 28 H 99 10/11/23 02:00 37.8 C H 93 H 28 H 96 10/11/23 01:30 38.0 C H 91 H 28 H 92 10/11/23 01:00 38.0 C H 85 11 L 98 10/11/23 01:00 70 10/11/23 00:30 38.0 C H 87 28 H 97 10/11/23 00:00 38.0 C H 95 H 28 H 94 10/11/23 00:00 88 10/10/23 23:30 38.0 C H 87 28 H 94 10/10/23 23:00 37.9 C H 86 28 H 95 10/10/23 22:35 29 H 80 10/10/23 22:30 37.9 C H 84 28 H 94 10/10/23 22:00 37.9 C H 79 28 H 97 10/10/23 21:30 37.8 C H 85 28 H 98 10/10/23 21:00 37.8 C H 83 24 98 10/10/23 20:35 77 10/10/23 20:30 37.8 C H 83 28 H 99 10/10/23 20:00 37.7 C H 86 28 H 99 10/10/23 20:00 28 H 100 10/10/23 19:30 37.7 C H 83 28 H 98 10/10/23 19:27 100 10/10/23 19:00 37.7 C H 81 28 H 98 Resident Activity Tracking Resident Involvement: Resident Care Provided Care Provided: Adult Hospital Medicine
[2023-10-11] MEDS: PNEUMOCOCCAL VACCINE (PCV20) 20-VAL CONJ-DIP CRM/PF 0.5 ML SYR IM ONE (07:22)
--- NOTE | 2023-10-11 07:37 | Hospitalist Progress Note ---
Date of Service October 11, 2023 Assessment & Plan (1) Sepsis: Plan: Sepsis, secondary to multifocal pneumonia, suspect gram negative pneumonia history of copd procalcitonin 81, marked leukocytosis Patient is with a severe acute respiratory acidosis and chronic underlying metabolic alkalosis on admission did not respond to fluid resuscitation , started on pressors/ norepinephrine vasopression/ phenylephrine Blood cultures, sputum culture pending, Respiratory biofire negative, random cortisol appropriate' respiratory culture is negative MRSA nares positive - On cefepime, did receive dose of Vancomycin, with renal failure monitor trough declined to require intubation and ventilation (2) ARF (acute renal failure): Plan: No known history of kidney dysfunction per patient's remains with metabolic acidosis likley from renal failure hyponatremia acute (3) HTN (hypertension): Plan: Lisinopril held for renal failure, sepsis, and hypotension requiring pressors initial concern for HF ruled out as echo show preserved EF elevated troponin from demand ischemia Plan conisder chemoprophylaxis for DVT prevetion Admission and Anticipated Discharge Date Admission Date: October 10, 2023 Subjective sedated and ventilated, appears comfortable Physical Exam Physical Exam: sedate cardiac is regular tachypneic on ventilator Results & Data Results & Data Vital Signs (Past 12 Hours) Vital Signs Temp Pulse Resp Pulse Ox FiO2 10/11/23 06:00 99.7 F H 96 H 28 H 93 10/11/23 05:55 50 10/11/23 05:30 99.9 F H 93 H 28 H 94 10/11/23 05:00 99.9 F H 86 28 H 96 10/11/23 05:00 60 10/11/23 04:50 50 10/11/23 04:30 100.0 F H 87 28 H 95 10/11/23 04:00 100.0 F H 85 28 H 96 10/11/23 03:30 100.2 F H 83 28 H 95 10/11/23 03:00 100.2 F H 85 28 H 95 10/11/23 02:44 28 H 60 10/11/23 02:30 100.0 F H 85 28 H 99 10/11/23 02:00 100.0 F H 93 H 28 H 96 10/11/23 01:30 100.4 F H 91 H 28 H 92 10/11/23 01:00 100.4 F H 85 11 L 98 10/11/23 01:00 70 10/11/23 00:30 100.4 F H 87 28 H 97 10/11/23 00:00 100.4 F H 95 H 28 H 94 10/11/23 00:00 88 10/10/23 23:30 100.4 F H 87 28 H 94 10/10/23 23:00 100.2 F H 86 28 H 95 10/10/23 22:35 29 H 80 10/10/23 22:30 100.2 F H 84 28 H 94 10/10/23 22:00 100.2 F H 79 28 H 97 10/10/23 21:30 100.0 F H 85 28 H 98 10/10/23 21:00 100.0 F H 83 24 98 10/10/23 20:35 77 10/10/23 20:30 100.0 F H 83 28 H 99 10/10/23 20:00 99.9 F H 86 28 H 99 10/10/23 20:00 28 H 100 10/10/23 19:30 99.9 F H 83 28 H 98 Laboratory Results reviewed cbc reviewed chemistry PG Care Time/CCT Total # of Minutes Spent Total Time Spent with Patient: Total time spent is greater than 50% in coordination of care (as documented) at patient's floor/unit and/or counseling patient: Coding Level of Care Code 91018 SUB INP/OBS CARE 3/50MIN Diagnoses Sepsis A41.9 ARF (acute renal failure) N17.9 HTN (hypertension) I10
[2023-10-11 09:05] LABS: Troponin I High Sensitivity 288.2 pg/ml (0-20)
--- NOTE | 2023-10-11 09:28 | Nephrology Progress Note ---
Date of Service October 11, 2023 Assessment & Plan (1) ARF (acute renal failure): Plan 67-year-old gentleman with no history of CKD, b/l cr 1.0 mg/dl admitted with sepsis secondary to pneumonia and developed SUZY and hyperkalemia. On admission creatinine was 4.4, potassium 5.1 and bicarb 21. Was significantly hypotensive with systolic blood pressure in 80s which slightly improved and currently requiring 2 pressor. Clinically volume overloaded with pulmonary congestion and bilateral pleural effusion as well as pneumonia. Urine output has improved and had almost 2 L of urine output. Kidney function slightly improved, electrolyte acceptable. --Continue to monitor renal function, electrolyte and urine output. Although kidney function slightly improved and has decent urine output but still requiring 2 pressors --Continue empiric antibiotic and hemodynamic support. Admission and Anticipated Discharge Date Admission Date: October 10, 2023 Job Pino was seen and evaluated this morning. Remains intubated and sedated. Blood pressure slightly improved but still requiring 2 pressors. Urine output improved, almost 2 L urine output since yesterday. Kidney function slightly improved, electrolyte acceptable. Review of Systems Review of Systems: Detailed review of system was not possible. Physical Exam Constitutional: WD/WN, vitals as above + ill appearing Intubated, sedated Respiratory: Auscultation: + diminished lung sounds and + crackles Cardiovascular: Rate/Rhythm: regular rate and + tachycardic Extremities: + edema Gastrointestinal (Abdomen): abdomen obese, soft, non tender. Musculoskeletal: Extremities: extremities normal to inspection Skin: no rashes, warm and dry Neurologic: Could not be assessed Psychiatric: Could not be assessed as patient intubated and sedated. Results & Data Vital Signs (Past 12 Hours) Vital Signs Temp Pulse Resp Pulse Ox O2 Del Method FiO2 10/11/23 08:00 83 10/11/23 08:00 Mechanical Vent 50 10/11/23 08:00 37.6 C H 83 28 H 96 10/11/23 07:43 50 10/11/23 07:15 84 28 H 94 50 10/11/23 07:00 37.6 C H 84 28 H 95 10/11/23 06:00 37.6 C H 96 H 28 H 93 10/11/23 05:55 50 10/11/23 05:30 37.7 C H 93 H 28 H 94 10/11/23 05:00 37.7 C H 86 28 H 96 10/11/23 05:00 60 10/11/23 04:50 50 10/11/23 04:30 37.8 C H 87 28 H 95 10/11/23 04:00 37.8 C H 85 28 H 96 10/11/23 03:30 37.9 C H 83 28 H 95 10/11/23 03:00 37.9 C H 85 28 H 95 10/11/23 02:44 28 H 60 10/11/23 02:30 37.8 C H 85 28 H 99 10/11/23 02:00 37.8 C H 93 H 28 H 96 10/11/23 01:30 38.0 C H 91 H 28 H 92 10/11/23 01:00 38.0 C H 85 11 L 98 10/11/23 01:00 70 10/11/23 00:30 38.0 C H 87 28 H 97 10/11/23 00:00 38.0 C H 95 H 28 H 94 10/11/23 00:00 88 10/10/23 23:30 38.0 C H 87 28 H 94 10/10/23 23:00 37.9 C H 86 28 H 95 10/10/23 22:35 29 H 80 10/10/23 22:30 37.9 C H 84 28 H 94 10/10/23 22:00 37.9 C H 79 28 H 97 10/10/23 21:30 37.8 C H 85 28 H 98 PG Care Time/CCT Total # of Minutes Spent Total Time Spent with Patient: Total time spent is greater than 50% in coordination of care (as documented) at patient's floor/unit and/or counseling patient: Coding Level of Care Code 98684 SUB INP/OBS CARE 2/35MIN Diagnoses ARF (acute renal failure) N17.9
[2023-10-11] MEDS: VANCOMYCIN HCL 1,250 MG in SODIUM CHLORIDE 0.9% 250 ML IV STA (11:12)
--- NOTE | 2023-10-11 11:39 | Pharmacy Report ---
Pharmacy PK ABX Note - Date of Service October 11, 2023 - Assessment and Plan Assessment 67 year old M receiving vancomycin/cefepime empirically for possible lung/urinary source. Pertinent microbiologic data includes: Positive MRSA Nasal Swab, sputum, urine and blood culture pending. Scr remains elevated at 4.27 however patient's urine output is improving with ~1250 mL over night and 500mL this morning. As discussed at multidisciplinary rounds,will plan to continue vanc for at least 72 hours or as dictated by new culture results/clinical status. Day # 2 of antimicrobial therapy. Plan Vancomycin * Patient received 2000mg dose 10/09@0400 at [facility] [address] * ~24 hour level this morning was 10.8. * Will redose with 1250mg x 1 and recheck a level tomorrow morning. Pharmacy will continue to follow and will adjust dose/frequency as necessary. Thank you. Pharmacy has transitioned to AUC monitoring for vancomycin. AUC/ANTWAN is the preferred PK/PD target and is associated with decreased risk of nephrotoxicity compared to traditional trough targets.
[2023-10-11] MEDS: INSULIN ASPART PER UNIT CHARGE SC SCH (11:58)
--- NOTE | 2023-10-11 12:25 | XRay Report ---
SINGLE VIEW CHEST CLINICAL HISTORY: Respiratory failure FINDINGS: An AP, portable, semierect chest radiograph is compared to study is dated 10/10/2023. The ex amination is degraded by portable technique and patient rotated. An endotracheal tube, enteric tube, and a left internal jugular central venous catheter are unchanged in position. The cardiomediastinal silhouette is top normal for projection. There is pulmonary vascular congestion. Bilateral airspace o pacities are noted. There is elevation right hemidiaphragm. Layering pleural effusions are seen with dependent Consolidation, right larger than left. No pneumothorax is seen. The bony thorax is grossly intact. IMPRESSION: 1. Stable lines and tubes. 2. Congestive failure is unchanged. 3. Bilateral airspace opacities are similar to previous, as are right large left pleural effusions wi th dependent consolidation. ACT 112: Negative or not required by law. Electronically signed by: Mehrdad Arteaga M.D. 10/11/2023 12:24 PM
--- NOTE | 2023-10-11 13:53 | Billing Data ---
Date of Service October 11, 2023 Coding Level of Care Code 77029 CRITICAL CARE
[2023-10-11] MEDS: HEPARIN SOD 5,000 UNIT/0.5 ML VIAL SQ SCH (14:48)
[2023-10-11] MEDS: PROPOFOL BOLUS FROM BAG IV PRN (21:59)
[2023-10-12] MEDS: fentaNYL BOLUS from BAG IV PRN (00:48)
[2023-10-12 04:19] LABS: Hematocrit (blood only) 28.5 % (42.0-52.0); Hemoglobin 9.3 g/dl (14.0-18.0); Mean Corpuscular Hemoglobin 26.2 pg (25.0-34.0); Mean Corpuscular Hgb Conc 32.6 g/dL (32.0-36.0); Mean Corpuscular Volume 80.3 fL (80.0-100.0); Mean Platelet Volume 10.1 fL (9.4-12.4); Nucleated RBC # (auto) 0.02 K/uL (0.00-0.12); Nucleated RBC % (auto) 0.1 %; Platelet Count 273 K/uL (130-400); RDW Coefficient of Variation 15.4 % (11.5-14.5); RDW Standard Deviation 45.5 fL (36.4-46.3); Red Blood Count 3.55 M/uL (4.70-6.10); White Blood Count 26.64 K/ul (4.8-10.8)
[2023-10-12 04:41] LABS: Basophils # (auto) 0.09 K/uL (0.00-0.20); Basophils % (auto) 0.3 %; Dohle Bodies 1+; Eosinophils # (auto) 0.09 K/uL (0.00-0.50); Eosinophils % (auto) 0.3 %; Immature Granulocytes # (auto) 1.24 K/uL (0.01-0.20); Immature Granulocytes % (auto) 4.7 %; Lymphocytes # (auto) 1.47 K/uL (1.20-3.40); Lymphocytes % (auto) 5.5 %; Monocytes # (auto) 0.97 K/uL (0.11-0.59); Monocytes % (auto) 3.6 %; Neutrophils # (auto) 22.78 K/uL (1.40-6.50); Neutrophils % (auto) 85.6 %; Polychromasia 1+
[2023-10-12 04:44] LABS: Magnesium 2.4 mg/dl (1.7-2.4); Phosphorus 2.9 mg/dl (2.5-4.9)
[2023-10-12 07:12] LABS: Estimated Average Glucose 160 mg/dl; Hemoglobin A1C 7.2 % (4.5-5.6)
--- NOTE | 2023-10-12 07:23 | Hospitalist Progress Note ---
Date of Service October 12, 2023 Assessment & Plan (1) Sepsis: Plan: Sepsis, secondary to multifocal pneumonia, suspect gram negative pneumonia history of copd continues with significant leukocytosis Patient is with a severe acute respiratory acidosis and chronic underlying metabolic alkalosis on admission remains on pressors/ norepinephrine vasopressin/ able to discontinue phenylephrine Blood cultures, sputum culture negative to date, Respiratory biofire negative, random cortisol appropriate' respiratory culture is negative MRSA nares positive - On cefepime, Vancomycin, with renal failure monitor trough pharmacy oversight continues intubation and ventilation (2) ARF (acute renal failure): Plan: No known history of kidney dysfunction per patient's remains with metabolic acidosis likley from renal failure hyponatremia acute Rhabdomyolysis is noted (3) HTN (hypertension): Plan: Lisinopril held for renal failure, sepsis, and hypotension requiring pressors initial concern for HF ruled out as echo show preserved EF no RWMA elevated troponin from demand ischemia Plan heparin for DVT prevention Admission and Anticipated Discharge Date Admission Date: October 10, 2023 Subjective intubated and sedated is able to come off phenylephrine, still on nor epi and vasopressin improved but persistent elevation of wbc Physical Exam Physical Exam: intubated and sedated coarse bilateral breath sounds Results & Data Results & Data Vital Signs (Past 12 Hours) Vital Signs Temp Pulse Resp BP Pulse Ox O2 Del Method FiO2 10/12/23 06:00 100.2 F H 67 28 H 94 10/12/23 05:30 100.2 F H 82 28 H 93 10/12/23 05:00 100.4 F H 90 28 H 92 10/12/23 04:30 100.4 F H 97 H 28 H 93 10/12/23 04:00 100.4 F H 91 H 28 H 94 10/12/23 04:00 50 10/12/23 03:53 81 28 H 94 50 10/12/23 03:30 100.4 F H 76 28 H 94 10/12/23 03:00 100.4 F H 77 28 H 94 10/12/23 02:30 100.2 F H 85 28 H 94 10/12/23 02:00 100.0 F H 85 28 H 92 10/12/23 01:30 100.0 F H 84 28 H 94 10/12/23 01:00 107/65 10/12/23 01:00 100.0 F H 86 28 H 95 10/12/23 00:01 96/53 L 10/12/23 00:01 100.4 F H 82 28 H 95 10/12/23 00:00 100.4 F H 82 28 H 95 10/12/23 00:00 82 10/12/23 00:00 50 10/11/23 23:36 92 H 28 H 94 50 10/11/23 23:30 100.2 F H 84 28 H 95 10/11/23 23:00 100.2 F H 87 28 H 94 10/11/23 22:00 100.2 F H 86 28 H 96 10/11/23 21:30 100.0 F H 85 28 H 94 10/11/23 21:00 100.0 F H 93 H 28 H 94 10/11/23 21:00 92/56 L 10/11/23 20:41 84 28 H 95 50 10/11/23 20:30 100.2 F H 99 H 28 H 94 10/11/23 20:00 Mechanical Vent 50 10/11/23 20:00 100.2 F H 88 28 H 94 10/11/23 20:00 87/57 L 10/11/23 19:56 50 10/11/23 19:41 100.2 F H 93 H 28 H 95 10/11/23 19:41 90/70 L 10/11/23 19:30 100.2 F H 89 28 H 94 Laboratory Results review cbc review chemistry PG Care Time/CCT Total # of Minutes Spent Total Time Spent with Patient: Total time spent is greater than 50% in coordination of care (as documented) at patient's floor/unit and/or counseling patient: Coding Level of Care Code 33855 SUB INP/OBS CARE 3/50MIN Diagnoses Sepsis A41.9 ARF (acute renal failure) N17.9 HTN (hypertension) I10
[2023-10-12 09:06] LABS: BUN Creatinine Ratio 26.9 (10-20); Calcium 8.6 mg/dl (8.6-10.3); Creatinine Clr Calc Pharmacy 65.1 ml/min; Est GFR (African American) 52.9 ml/min; Est GFR (Non-African American) 45.6 ml/min; Potassium 4.1 mmol/L (3.5-5.1)
--- NOTE | 2023-10-12 09:14 | XRay Report ---
XR chest 1V portable HISTORY: resp failure COMPARISON: Chest 10/11/2023. FINDINGS: Endotracheal tube terminates 3 cm from the isidoro. The nasogastric tube terminates below th e diaphragm. A left jugular central venous catheter terminates in the SVC. This remains unchanged. No pneumothorax. The heart remains enlarged. Patchy bilateral airspace opacities most pronounced on the right and bilateral pleural effusions persist. No acute fractures identified. Mild congestive change persists. IMPRESSION: 1. Satisfactory support line placement. 2. Cardiomegaly and mild congestive change persists. 3. Bilateral airspace opacities and pleural effusions again noted. ACT 112: Negative or not required by law. Electronically signed by: Casimiro Canchola M.D. 10/12/2023 9:13 AM
--- NOTE | 2023-10-12 09:40 | Pharmacy Report ---
Pharmacy PK ABX Note - Date of Service October 12, 2023 - Assessment and Plan Assessment * 67 year old M with septic shock receiving vancomycin/cefepime empirically for possible lung/urinary source. * Pertinent microbiologic data includes: Positive MRSA Nasal Swab, sputum, urine and blood culture pending. * Scr with significant improvement today, likely 2nd significant UOP * Discussed at multidisciplinary rounds yesterday - plan is to continue vanc for at least 72 hours or as dictated by new culture results/clinical status Plan Vancomycin * Will continue to dose by level based on changing renal function * Level of 9.5 mcg/mL this AM may be subtherapeutic, although cannot use AUC at this time 2nd changing renal function * Will increase dose today to 15 mg/kg (2000mg) * Recheck random level tomorrow morning Pharmacy will continue to follow and will adjust dose/frequency as necessary. Thank you. Pharmacy has transitioned to AUC monitoring for vancomycin. AUC/ANTWAN is the preferred PK/PD target and is associated with decreased risk of nephrotoxicity compared to traditional trough targets.
--- NOTE | 2023-10-12 09:47 | Critical Care Progress Note ---
Date of Service October 12, 2023 Assessment & Plan (1) ARF (acute renal failure): (2) HTN (hypertension): (3) CHF (congestive heart failure): (4) COPD (chronic obstructive pulmonary disease): (5) Sepsis: (6) Acute hypoxic respiratory failure: Plan Assessment: Pt is a 67 yo male who presented to the hospital on 10/09 from [facility] for respiratory distress and possible sepsis/septic shock, admitted to the ICU for need for pressors and for need for mechanical ventilation due to worsened resp status. 24 hour events: Some mild progress weaning ventilator settings and hemodynamic support. Performed bedside ultrasound today. Unable to visualize a clear effusion on the left. Largely consolidated lung. Plan: Neurologic: Continue sedation with propofol and fentanyl. Cardiac: Continued septic shock. Weaning Levophed and vasopressin at this point in time. Appears adequately volume resuscitated. Ideally would like to diurese given the pleural effusions but will hold off for now. Echocardiogram unr evealing. Random cortisol appropriate. Respiratory: Hypoxemic hypercarbic respiratory failure. Continue vent settings. Patient uses oxygen at 3 L/min at baseline. No prior PFTs available to review. Follow daily chest x-ray for increasing pleural effusion which may require sampling but again ultrasound not convincing at this point in time. Gastrointestinal: May start trophic tube feeds when pressor requirements decrease. PPI in place Renal/electrolytes: Presented with acute renal failure likely ATN. Significant improvement in serum creatinine electrolytes and acid-base status over the last 24 hours. Appreciate nephrology consultation. Initiate ICU electrolyte replacement protocol. CPK was elevated and climbed yesterday. Will recheck today. Given the improvement in renal indices, no additional intervention required currently Genitourinary: Continue Robertson catheter for monitoring intake and output Endocrine: Glycemic control per protocol Hematologic: Mild anemia. No evidence of blood loss. No indication for transfusion. Continue to follow Infectious disease: Suspect lung process but cultures are negative. May be hampered by end administration of antibiotics at outside facility. Procalcitonin was significantly elevated. White blood cell count improving. Day #3 cefepime and vancomycin. Pharmacy dosing vancomycin. May be able to discontinue vancomycin if cultures remain negative at 3 days Integumentary: No issues Lines/access IJ cath in place, peripheral arterial line, orogastric tube, endotracheal tube, Robertson catheter Patient remains critically ill with significant probability of clinical decline and organ dysfunction. A total of 42 minutes in critical care time was spent evaluation management stabilization of this patient. Admission and Anticipated Discharge Date Admission Date: October 10, 2023 Subjective Patient is intubated and sedated and ventilated. Review of Systems Review of Systems: Unobtainable due to endotracheal tube Physical Exam Constitutional: + morbidly obese and + mechanically vent ilated Neck: trachea midline, no thyromegaly Respiratory: + cough; no respiratory distress and no labored breathing Auscultation: + diminished lung sounds and + rhonchi Cardiovascular: RRR, no murmur, no edema Gastrointestinal (Abdomen): normal bowel sounds, soft, nontender, no hepatosplenomegaly Musculoskeletal: Extremities: extremities normal to inspection Skin: no rashes, warm and dry Neurologic: Sedated on the ventilator Lymphatic: no cervical lymphadenopathy Results & Data Results & Data Vital Signs (Past 12 Hours) Vital Signs Temp Pulse Resp BP Pulse Ox FiO2 10/12/23 08:00 76 10/12/23 08:00 50 10/12/23 07:30 86 28 H 92 40 10/12/23 06:00 37.9 C H 67 28 H 94 10/12/23 05:30 37.9 C H 82 28 H 93 10/12/23 05:00 38.0 C H 90 28 H 92 10/12/23 04:30 38.0 C H 97 H 28 H 93 10/12/23 04:00 38.0 C H 91 H 28 H 94 10/12/23 04:00 50 10/12/23 03:53 81 28 H 94 50 10/12/23 03:30 38.0 C H 76 28 H 94 10/12/23 03:00 38.0 C H 77 28 H 94 10/12/23 02:30 37.9 C H 85 28 H 94 10/12/23 02:00 37.8 C H 85 28 H 92 10/12/23 01:30 37.8 C H 84 28 H 94 10/12/23 01:00 107/65 10/12/23 01:00 37.8 C H 86 28 H 95 10/12/23 00:01 96/53 L 10/12/23 00:01 38.0 C H 82 28 H 95 10/12/23 00:00 38.0 C H 82 28 H 95 10/12/23 00:00 82 10/12/23 00:00 50 10/11/23 23:36 92 H 28 H 94 50 10/11/23 23:30 37.9 C H 84 28 H 95 10/11/23 23:00 37.9 C H 87 28 H 94 10/11/23 22:00 37.9 C H 86 28 H 96 Critical Care Results & Data Vital Signs (Past 12 Hours) Vital Signs Temp Pulse Resp BP Pulse Ox FiO2 10/12/23 08:00 76 10/12/23 08:00 50 10/12/23 07:30 86 28 H 92 40 10/12/23 06:00 37.9 C H 67 28 H 94 10/12/23 05:30 37.9 C H 82 28 H 93 10/12/23 05:00 38.0 C H 90 28 H 92 10/12/23 04:30 38.0 C H 97 H 28 H 93 10/12/23 04:00 38.0 C H 91 H 28 H 94 10/12/23 04:00 50 10/12/23 03:53 81 28 H 94 50 10/12/23 03:30 38.0 C H 76 28 H 94 10/12/23 03:00 38.0 C H 77 28 H 94 10/12/23 02:30 37.9 C H 85 28 H 94 10/12/23 02:00 37.8 C H 85 28 H 92 10/12/23 01:30 37.8 C H 84 28 H 94 10/12/23 01:00 107/65 10/12/23 01:00 37.8 C H 86 28 H 95 10/12/23 00:01 96/53 L 10/12/23 00:01 38.0 C H 82 28 H 95 10/12/23 00:00 38.0 C H 82 28 H 95 10/12/23 00:00 82 10/12/23 00:00 50 10/11/23 23:36 92 H 28 H 94 50 10/11/23 23:30 37.9 C H 84 28 H 95 10/11/23 23:00 37.9 C H 87 28 H 94 10/11/23 22:00 37.9 C H 86 28 H 96 Lab & Micro Results (Past 24 Hours) RBC 3.55 M/uL (4.70-6.10) L 10/12/23 WBC 26.64 K/ul (4.8-10.8) H 10/12/23 Hgb 9.3 g/dl (14.0-18.0) L 10/12/23 Hct 28.5 % (42.0-52.0) L 10/12/23 MCV 80.3 fL (80.0-100.0) 10/12/23 MCH 26.2 pg (25.0-34.0) 10/12/23 MCHC 32.6 g/dL (32.0-36.0) 10/12/23 RDW Standard Deviation 45.5 fL (36.4-46.3) 10/12/23 RDW Coefficient of Variation 15.4 % (11.5-14.5) H 10/12/23 Plt Count 273 K/uL (130-400) 10/12/23 MPV 10.1 fL (9.4-12.4) 10/12/23 Nucleated Red Blood Cells % (auto) 0.1 % 10/11 Nucleated RBC Absolute Count (auto) 0.02 K/uL (0.00-0.12) 0 10/12/23 Neutrophils (%) (Auto) 85.6 % 10/12/23 Lymphocytes (%) (Auto) 5.5 % 10/12/23 Monocytes # (Auto) 0.97 K/uL (0.11-0.59) H 10/12/23 Eosinophils # (Auto) 0.09 K/uL (0.00-0.50) 10/12/23 Immature Granulocyte % (Auto) 4.7 % 10/12/23 Neutrophils # (Auto) 22.78 K/uL (1.40-6.50) H 10/12/23 Lymphocytes # (Auto) 1.47 K/uL (1.20-3.40) 10/12/23 Monocytes # (Auto) 0.97 K/uL (0.11-0.59) H 10/12/23 Eosinophils # (Auto) 0.09 K/uL (0.00-0.50) 10/12/23 Basophils # (Auto) 0.09 K/uL (0.00-0.20) 10/12/23 Immature Granulocyte # (Auto) 1.24 K/uL (0.01-0.20) H 10/11 Polychromasia 1+ 10/12/23 Dohle Bodies 1+ 10/12/23 Na 137 mmol/L (136-145) 10/12/23 K 4.1 mmol/L (3.5-5.1) 10/12/23 Cl 101 mmol/L (98-107) 10/12/23 CO2 27 mmol/L (21-32) 10/12/23 Anion Gap 9 (3-11) 10/12/23 BUN 42 mg/dl (6-23) H 10/12/23 Creatinine 1.56 mg/dl (0.6-1.4) H 10/12/23 Estimated GFR ( Amer) 52.9 ml/min 10/12/23 Estimated GFR (Non-Af Amer) 45.6 ml/min 10/12/23 BUN/Creatinine Ratio 26.9 (10-20) H 10/12/23 Glu 210 mg/dl (70-99(Fasting)) H 10/12/23 Ca 8.6 mg/dl (8.6-10.3) 10/12/23 Phosphorus Level 2.9 mg/dl (2.5-4.9) 10/12/23 Mg 2.4 mg/dl (1.7-2.4) 10/12/23 03:54 Calcium Level 8.6 mg/dl (8.6-10.3) 10/12/23 03:54 Microbiology 10/10/23 12:13 Aerobic Blood Culture - Preliminary Blood No growth in Aerobic bottle after 24 hours. Anaerobic Blood Culture - Preliminary No growth in Anaerobic bottle after 24 hours. 10/10/23 12:18 Aerobic Blood Culture - Preliminary Blood No growth in Aerobic bottle after 24 hours. Anaerobic Blood Culture - Preliminary No growth in Anaerobic bottle after 24 hours. 10/10/23 Unknown Gram Stain - Final Sputum, Expectorated Sputum Culture - Preliminary No growth Diagnostic Findings (Past 24 Hours) Chest X-Ray 10/11/23 05:30 SINGLE VIEW CHEST CLINICAL HISTORY: Respiratory failure FINDINGS: An AP, portable, semierect chest radiograph is compared to study is dated 10/10/2023. The examination is degraded by portable technique and patient rotated. An endotracheal tube, enteric tube, and a left internal jugular central venous catheter are unchanged in position. The cardiomediastinal silhouette is top normal for projection. There is pulmonary vascular congestion. Bilateral airspace opacities are noted. There is elevation right hemidiaphragm. Layering p leural effusions are seen with dependent Consolidation, right larger than left. No pneumothorax is seen. The bony thorax is grossly intact. IMPRESSION: 1. Stable lines and tubes. 2. Congestive failure is unchanged. 3. Bilateral airspace opacities are similar to previous, as are right large left pleural effusions with dependent consolidation. ACT 112: Negative or not required by law. Electronically signed by: Mehrdad Arteaga M.D. 10/11/2023 12:24 PM Chest X-Ray 10/12/23 07:36 XR chest 1V portable HISTORY: resp failure COMPARISON: Chest 10/11/2023. FINDINGS: Endotracheal tube terminates 3 cm from the isidoro. The nasogastric tube terminates below the diaphragm. A left jugular central venous catheter terminates in the SVC. This remains unchanged. No pneumothorax. The heart remains enlarged. Patchy bilateral airspace opacities most pronounced on the right and bilateral pleural effusions persist. No acute fractures identified. Mild congestive change persists. IMPRESSION: 1. Satisfactory support line placement. 2. Cardiomegaly and mild congestive change persists. 3. Bilateral airspace opacities and pleural effusions again noted. ACT 112: Negative or not required by law. Electronically signed by: Csaimiro Canchola M.D. 10/12/2023 9:13 AM I & O Totals 24 Hours 10/11/23 10/12/23 10/13/23 06:59 06:59 06:59 Intake Total 1754.937 / 4185.924 8995.182 / 1443.182 361.317 / 361.317 Output Total 1570 / 1570 3940 / 3940 275 / 275 Balance 184.937 / 184.937 -2496.818 / -2496.818 86.317 / 86.317 Cumulative 10/10/23 05:14 thru 10/12/23 08:19 Intake Total 3559.436 Output Total 5785 Balance -2225.564 RT Ventilator Mngmt (Last Documented) Ventilator Ordered Settings Ventilator Support Mode Assist Control 10/12/23 08:00 Respiratory Rate 28 10/12/23 07:30 Ventilator Tidal Volume 400 10/12/23 08:00 Setting Minute Ventilation 11.2 10/12/23 07:30 Positive End Expiratory 5 10/12/23 08:00 Pressure Fraction of Inspired Oxygen 50 10/12/23 08:00 Peak Inspiratory Flow 53 10/12/23 07:30 Ventilator - PT Measurements Respiratory Rate 28 Exhaled Tidal Volume 400 Minute Ventilation 11.2 Peak Inspiratory Airway 29 Pressure Plateau Pressure 21.8 Respiratory Cycle Inspiratory: 1:2.6 Expiratory Ratio Inspiratory Phase Time 0.6 End-Tidal CO2 35 Static Lung Compliance 23.81 Dynamic Lung Compliance 16.67 Normal Static Lung Compliance 45.00 Patient Measurements Comment per ABG vent changes made to 50%, PEEP 6 Coding Level of Care Code 36245 CRITICAL CARE 1ST 30-74M Diagnoses ARF (acute renal failure) N17.9 HTN (hypertension) I10 CHF (congestive heart failure) I50.9 COPD (chronic obstructive pulmonary disease) J44.9 Sepsis A41.9 Acute hypoxic respiratory failure J96.01
[2023-10-12] MEDS: VANCOMYCIN HCL 2,000 MG in SODIUM CHLORIDE 0.9% 500 ML IV ONE (10:11)
[2023-10-12] MEDS: CEFEPIME 2,000 MG in SYRINGE 0 ML IV SCH (10:34)
--- NOTE | 2023-10-12 10:51 | Nephrology Progress Note ---
Date of Service October 12, 2023 Assessment & Plan (1) ARF (acute renal failure): Plan 67-year-old gentleman with no history of CKD, b/l cr 1.0 mg/dl admitted with sepsis secondary to pneumonia and developed SUZY and hyperkalemia. On admission creatinine was 4.4, potassium 5.1 and bicarb 21. Was significantly hypotensive with systolic blood pressure in 80s which slightly improved and currently requiring 2 pressor. Overall doing much better, blood pressure improved, pressor titrating down. Kidney function improved, creatinine down to 1.6, electrolyte acceptable, excellent urine output. --Continue to monitor renal function, electrolyte and urine output. --Continue empiric antibiotic and hemodynamic support. Will sign off. Admission and Anticipated Discharge Date Admission Date: October 10, 2023 Job Pino was seen and evaluated this morning. Remains intubated and sedated. Blood pressure slightly improved , going down on pressor requirements. Decent urine output, rapid improvement in kidney function, creatinine down to 1.6, electrolyte acceptable. . Physical Exam Constitutional: WD/WN, vitals as above + ill appearing Intubated, sedated Cardiovascular: Rate/Rhythm: regular rate and regular rhythm Musculoskeletal: Extremities: extremities normal to inspection Skin: no rashes, warm and dry Neurologic: Could not be assessed Psychiatric: Could not be assessed as patient intubated and sedated. Results & Data Vital Signs (Past 12 Hours) Vital Signs Temp Pulse Resp BP Pulse Ox FiO2 10/12/23 10:00 37.7 C H 71 28 H 92 10/12/23 09:30 37.7 C H 74 28 H 93 10/12/23 09:01 104/64 10/12/23 09:01 37.7 C H 73 28 H 93 10/12/23 09:00 37.7 C H 74 24 93 10/12/23 08:30 37.7 C H 75 24 93 10/12/23 08:01 37.7 C H 75 28 H 92 10/12/23 08:01 99/64 L 10/12/23 08:00 37.7 C H 80 24 92 10/12/23 08:00 76 10/12/23 08:00 50 10/12/23 07:30 37.8 C H 81 24 95 10/12/23 07:30 86 28 H 92 40 10/12/23 06:00 37.9 C H 67 28 H 94 10/12/23 05:30 37.9 C H 82 28 H 93 10/12/23 05:00 38.0 C H 90 28 H 92 10/12/23 04:30 38.0 C H 97 H 28 H 93 10/12/23 04:00 38.0 C H 91 H 28 H 94 10/12/23 04:00 50 10/12/23 03:53 81 28 H 94 50 10/12/23 03:30 38.0 C H 76 28 H 94 10/12/23 03:00 38.0 C H 77 28 H 94 10/12/23 02:30 37.9 C H 85 28 H 94 10/12/23 02:00 37.8 C H 85 28 H 92 10/12/23 01:30 37.8 C H 84 28 H 94 10/12/23 01:00 107/65 10/12/23 01:00 37.8 C H 86 28 H 95 10/12/23 00:01 96/53 L 10/12/23 00:01 38.0 C H 82 28 H 95 10/12/23 00:00 38.0 C H 82 28 H 95 10/12/23 00:00 82 10/12/23 00:00 50 10/11/23 23:36 92 H 28 H 94 50 10/11/23 23:30 37.9 C H 84 28 H 95 10/11/23 23:00 37.9 C H 87 28 H 94 PG Care Time/CCT Total # of Minutes Spent Total Time Spent with Patient: Total time spent is greater than 50% in coordination of care (as documented) at patient's floor/unit and/or counseling patient: Coding Level of Care Code 96884 SUB INP/OBS CARE 2/35MIN Diagnoses ARF (acute renal failure) N17.9
[2023-10-12] MEDS: ICU ELECTROLYTE REPLACEMENT PROTOCOL SCH (17:14)
[2023-10-13] MEDS: MIDAZOLAM HCL 1 MG/ML 2ML VIAL IV STA (02:37)
[2023-10-13] MEDS: MIDAZOLAM HCL 1 MG/ML 2ML VIAL ONE (02:37)
[2023-10-13 05:07] LABS: Hematocrit (blood only) 29.1 % (42.0-52.0); Mean Corpuscular Hemoglobin 25.5 pg (25.0-34.0); Mean Corpuscular Hgb Conc 30.9 g/dL (32.0-36.0); Mean Corpuscular Volume 82.4 fL (80.0-100.0); Mean Platelet Volume 9.7 fL (9.4-12.4); Platelet Count 287 K/uL (130-400); RDW Coefficient of Variation 15.6 % (11.5-14.5); Red Blood Count 3.53 M/uL (4.70-6.10); White Blood Count 24.12 K/ul (4.8-10.8)
[2023-10-13 05:08] LABS: BUN Creatinine Ratio 29.8 (10-20); Calcium 8.6 mg/dl (8.6-10.3); Creatinine Clr Calc Pharmacy 97.7 ml/min; Est GFR (African American) 86.3 ml/min; Est GFR (Non-African American) 74.5 ml/min; Magnesium 2.5 mg/dl (1.7-2.4); Potassium 4.1 mmol/L (3.5-5.1)
[2023-10-13 06:18] LABS: Basophils # (auto) 0.13 K/uL (0.00-0.20); Basophils % (auto) 0.5 %; Eosinophils # (auto) 0.18 K/uL (0.00-0.50); Eosinophils % (auto) 0.7 %; Immature Granulocytes # (auto) 2.04 K/uL (0.01-0.20); Immature Granulocytes % (auto) 8.5 %; Lymphocytes # (auto) 1.55 K/uL (1.20-3.40); Lymphocytes % (auto) 6.4 %; Monocytes # (auto) 1.06 K/uL (0.11-0.59); Monocytes % (auto) 4.4 %; Neutrophils # (auto) 19.16 K/uL (1.40-6.50); Neutrophils % (auto) 79.5 %
--- NOTE | 2023-10-13 08:09 | Procedure Note ---
Procedure Note: Bronchoscopy Procedure Procedure: Fiberoptic bronchoscopy Bronchial wash Thoracic ultrasound Provider: Teodoro Hutton MD Consent: Patient is intubated and on the ventilator. Procedure was emergent. Family not immediately available Indication: Persistent pulmonary infiltrates Procedure: Patient in the ICU on mechanical ventilator. He has persistent pulmonary infiltrates and bronchoscopy was warranted to obtain lower respiratory secretions and ensure airway patency. Appropriate radiographic studies had been reviewed prior to the procedure. He was in a monitored bed. Oxygen was placed on 100% FiO2 The fiberoptic scope was advanced through the endotracheal tube by the Bodai adapter. The tube was sounded and found to be approximately 3 cm above the isidoro. The tube was widely patent. There were some thin secretions present within the trachea. These were easily suctioned. The main isidoro was sharp. The scope was then advanced into the right mainstem bronchus. The right upper lobe takeoff was normal as was the bronchus intermedius. There were thick mucoid plugs present within the right lower lobe which were collected for microbiologic analysis with saline lavage. At the conclusion the airways were patent. Airways were mildly inflamed. Scope was then directed into the left side. The left mainstem bronchus was patent as was the left upper lobe takeoff. There were again thick mucoid purulent secretions emanating from the left lower lobe which were lavaged free. Again at the conclusion of the procedure the airways were patent. Airways on the left side were also inflamed. The bronchoscope was then removed from the airways. The patient tolerated the procedure well without obvious complication. Thoracic ultrasound was then performed. The patient was placed in a left side up decubitus position as the chest x-ray suggested pleural effusion. Limited thoracic ultrasound was performed. Acoustic windows were poor however was not able to easily identify a fluid pocket. The lung appeared consolidated. Will proceed with noncontrast CT of the chest Impression: 1. Thick mucoid secretions in the bilateral lower lobes status post bronchoscopy with bronchial washings. Await microbiologic data. 2. Thoracic ultrasound showing consolidation of the left lower lobe with no significant effusion. Will proceed with noncontrast CT of the chest [facility] [place] Procedure Codes (Charges) Pulmonary/Thoracic Procedure 1: Pulmonary and Thoracic: 50421 Dx bronchoscopy/wash Procedure 2: Pulmonary and Thoracic: 97619 US, Chest, real time with imaging documentation
--- NOTE | 2023-10-13 08:15 | Critical Care Progress Note ---
Date of Service October 13, 2023 Assessment & Plan (1) ARF (acute renal failure): (2) HTN (hypertension): (3) CHF (congestive heart failure): (4) COPD (chronic obstructive pulmonary disease): (5) Sepsis: (6) Acute hypoxic respiratory failure: Plan Assessment: Pt is a 67 yo male who presented to the hospital on 10/09 from [facility] for respiratory distress and possible sepsis/septic shock, admitted to the ICU for need for pressors and for need for mechanical ventilation due to worsened resp status. 24 hour events: Increased oxygen requirement overnight. Improved hemodynamic status with the patient being weaned off of vasopressin and now only on norepinephrine. Plan: Neurologic: Continue sedation with propofol and fentanyl. Check triglycerides in a.m. Cardiac: Continued septic shock. Weaning Levophed. Appears adequately volume resuscitated. Echocardiogram unrevealing. Random cortisol appropriate. Respiratory: Hypoxemic hypercarbic respiratory failure. Patient uses oxygen at 3 L/min at baseline. Probable some component of obesity hypoventilation at baseline. No prior PFTs available to review. Repeat ultrasound performed today and again I am unable to visualize significant pleural fluid although the patient's body habitus may compromise acoustic windows. Will plan on proceeding with noncontrast CT of the chest to evaluate consolidative process and pleural space. Gastrointestinal: May start trophic tube feeds when pressor requirements decrease. PPI in place Renal/electrolytes: Presented with acute renal failure likely ATN. Creatinine now normal and CPK back to baseline. Initiate ICU electrolyte replacement protocol. Given the improvement in renal indices, no additional intervention required currently Genitourinary: Continue Robertson catheter for monitoring intake and output Endocrine: Glycemic control per protocol Hematologic: Mild anemia. No evidence of blood loss. No indication for transfusion. Continue to follow. On heparin for DVT prophylaxis Infectious disease: Suspect lung process but cultures are negative. May be hampered by administration of antibiotics at outside facility. Procalcitonin was significantly elevated but has significantly decreased. White blood cell count improving. Day #4 cefepime and vancomycin. Anticipate at least 7 days of antimicrobial therapy. Discontinue vancomycin. Await bronchoscopy cultures from today. Integumentary: No issues Lines/access IJ cath in place, arterial line, orogastric tube, endotracheal tube, Robertson catheter Patient remains critically ill with significant probability of clinical decline and organ dysfunction. A total of 45 minutes in critical care time was spent evaluation management stabilization of this patient. Admission and Anticipated Discharge Date Admission Date: October 10, 2023 Subjective Intubated and sedated Review of Systems Review of Systems: Unobtainable due to endotracheal tube Physical Exam Constitutional: + morbidly obese and + mechanically vent ilated Neck: trachea midline, no thyromegaly Respiratory: + cough; no respiratory distress and no labored breathing Auscultation: + diminished lung sounds and + rhonchi Cardiovascular: RRR, no murmur, no edema Gastrointestinal (Abdomen): normal bowel sounds, soft, nontender, no hepatosplenomegaly Musculoskeletal: Extremities: extremities normal to inspection Skin: no rashes, warm and dry Lymphatic: no cervical lymphadenopathy Results & Data Results & Data Vital Signs (Past 12 Hours) Vital Signs Temp Pulse Resp BP Pulse Ox FiO2 10/13/23 06:00 37.8 C H 84 24 93 10/13/23 05:00 37.9 C H 91 H 24 94 10/13/23 04:00 99/57 L 10/13/23 04:00 37.9 C H 91 H 24 95 10/13/23 03:56 88 25 H 93 80 10/13/23 03:53 75 10/13/23 03:00 37.9 C H 88 24 93 10/13/23 02:30 38.0 C H 102 H 31 H 77 L 10/13/23 02:00 38.0 C H 95 H 21 78 L 10/13/23 01:00 37.9 C H 88 23 91 10/13/23 00:01 37.7 C H 85 28 H 92 10/13/23 00:01 105/55 L 10/13/23 00:00 89 10/13/23 00:00 40 10/12/23 23:55 84 28 H 92 50 10/12/23 23:00 97/57 L 10/12/23 23:00 37.8 C H 87 28 H 91 10/12/23 22:02 83/70 L 10/12/23 22:02 37.9 C H 94 H 28 H 94 10/12/23 21:01 104/60 10/12/23 21:01 37.9 C H 72 28 H 94 Critical Care Results & Data Vital Signs (Past 12 Hours) Vital Signs Temp Pulse Resp BP Pulse Ox FiO2 10/13/23 06:00 37.8 C H 84 24 93 10/13/23 05:00 37.9 C H 91 H 24 94 10/13/23 04:00 99/57 L 10/13/23 04:00 37.9 C H 91 H 24 95 10/13/23 03:56 88 25 H 93 80 10/13/23 03:53 75 10/13/23 03:00 37.9 C H 88 24 93 10/13/23 02:30 38.0 C H 102 H 31 H 77 L 10/13/23 02:00 38.0 C H 95 H 21 78 L 10/13/23 01:00 37.9 C H 88 23 91 10/13/23 00:01 37.7 C H 85 28 H 92 10/13/23 00:01 105/55 L 10/13/23 00:00 89 10/13/23 00:00 40 10/12/23 23:55 84 28 H 92 50 10/12/23 23:00 97/57 L 10/12/23 23:00 37.8 C H 87 28 H 91 10/12/23 22:02 83/70 L 10/12/23 22:02 37.9 C H 94 H 28 H 94 10/12/23 21:01 104/60 10/12/23 21:01 37.9 C H 72 28 H 94 Lab & Micro Results (Past 24 Hours) RBC 3.53 M/uL (4.70-6.10) L 10/13/23 WBC 24.12 K/ul (4.8-10.8) H 10/13/23 Hgb 9.0 g/dl (14.0-18.0) L 10/13/23 Hct 29.1 % (42.0-52.0) L 10/13/23 MCV 82.4 fL (80.0-100.0) 10/13/23 MCH 25.5 pg (25.0-34.0) 10/13/23 MCHC 30.9 g/dL (32.0-36.0) L 10/13/23 RDW Standard Deviation 47.0 fL (36.4-46.3) H 10/13/23 RDW Coefficient of Variation 15.6 % (11.5-14.5) H 10/13/23 Plt Count 287 K/uL (130-400) 10/13/23 MPV 9.7 fL (9.4-12.4) 10/13/23 Neutrophils (%) (Auto) 79.5 % 10/13/23 Lymphocytes (%) (Auto) 6.4 % 10/13/23 Monocytes # (Auto) 1.06 K/uL (0.11-0.59) H 10/13/23 Eosinophils # (Auto) 0.18 K/uL (0.00-0.50) 10/13/23 Immature Granulocyte % (Auto) 8.5 % 10/13/23 Neutrophils # (Auto) 19.16 K/uL (1.40-6.50) H 10/13/23 Lymphocytes # (Auto) 1.55 K/uL (1.20-3.40) 10/13/23 Monocytes # (Auto) 1.06 K/uL (0.11-0.59) H 10/13/23 Eosinophils # (Auto) 0.18 K/uL (0.00-0.50) 10/13/23 Basophils # (Auto) 0.13 K/uL (0.00-0.20) 10/13/23 Immature Granulocyte # (Auto) 2.04 K/uL (0.01-0.20) H 10/12 Na 141 mmol/L (136-145) 10/13/23 K 4.1 mmol/L (3.5-5.1) 10/13/23 Cl 104 mmol/L (98-107) 10/13/23 CO2 29 mmol/L (21-32) 10/13/23 Anion Gap 8 (3-11) 10/13/23 BUN 31 mg/dl (6-23) H 10/13/23 Creatinine 1.04 mg/dl (0.6-1.4) 10/13/23 Estimated GFR ( Amer) 86.3 ml/min 10/13/23 Estimated GFR (Non-Af Amer) 74.5 ml/min 10/13/23 BUN/Creatinine Ratio 29.8 (10-20) H 10/13/23 Glu 179 mg/dl (70-99(Fasting)) H 10/13/23 Ca 8.6 mg/dl (8.6-10.3) 10/13/23 Phosphorus Level 3.0 mg/dl (2.5-4.9) 10/13/23 Mg 2.5 mg/dl (1.7-2.4) H 10/13/23 04:25 Calcium Level 8.6 mg/dl (8.6-10.3) 10/13/23 04:25 Microbiology 10/10/23 12:13 Aerobic Blood Culture - Preliminary Blood No growth in Aerobic bottle after 48 hours. Anaerobic Blood Culture - Preliminary No growth in Anaerobic bottle after 48 hours. 10/10/23 12:18 Aerobic Blood Culture - Preliminary Blood No growth in Aerobic bottle after 48 hours. Anaerobic Blood Culture - Preliminary No growth in Anaerobic bottle after 48 hours. 10/10/23 11:50 Urine Culture - Preliminary Urine,Indwelling Cath No growth - Less than 1,000 colonies/mL, Final report to follow. 10/10/23 Unknown Gram Stain - Final Sputum, Expectorated Sputum Culture - Final No growth Diagnostic Findings (Past 24 Hours) Chest X-Ray 10/12/23 07:36 XR chest 1V portable HISTORY: resp failure COMPARISON: Chest 10/11/2023. FINDINGS: Endotracheal tube terminates 3 cm from the isidoro. The nasogastric tube terminates below the diaphragm. A left jugular central venous catheter terminates in the SVC. This remains unchanged. No pneumothorax. The heart remains enlarged. Patchy bilateral airspace opacities most pronounced on the right and bilateral pleural effusions persist. No acute fractures identified. Mild congestive change persists. IMPRESSION: 1. Satisfactory support line placement. 2. Cardiomegaly and mild congestive change persists. 3. Bilateral airspace opacities and pleural effusions again noted. ACT 112: Negative or not required by law. Electronically signed by: Casimiro Canchola M.D. 10/12/2023 9:13 AM I & O Totals 24 Hours 10/12/23 10/13/23 10/14/23 06:59 06:59 06:59 Intake Total 1443.182 / 2597.418 6375.100 / 2342.100 214.318 / 214.318 Output Total 3940 / 3940 2430 / 2430 Balance -2496.818 / -2496.818 -87.900 / -87.900 214.318 / 214.318 Cumulative 10/10/23 05:14 thru 10/13/23 07:03 Intake Total 5754.537 Output Total 7940 Balance -2185.463 RT Ventilator Mngmt (Last Documented) Ventilator Ordered Settings Ventilator Support Mode Assist Control 10/13/23 03:56 Respiratory Rate 24 10/13/23 06:00 Ventilator Tidal Volume 400 10/13/23 03:56 Setting Minute Ventilation 10 10/13/23 03:56 Positive End Expiratory 6 10/13/23 03:56 Pressure Fraction of Inspired Oxygen 80 10/13/23 03:56 Peak Inspiratory Flow 53 10/12/23 16:35 Ventilator - PT Measurements Respiratory Rate 24 Exhaled Tidal Volume 402 Minute Ventilation 10 Peak Inspiratory Airway 27 Pressure Plateau Pressure 22 Respiratory Cycle Inspiratory: 1:2.6 Expiratory Ratio Inspiratory Phase Time 0.7 End-Tidal CO2 40 Static Lung Compliance 25.13 Dynamic Lung Compliance 19.14 Normal Static Lung Compliance 45.00 Patient Measurements Comment FiO2 titrated to 40% to maintain SPO2 > 90% Coding Level of Care Code 80129 CRITICAL CARE 1ST 30-74M Diagnoses ARF (acute renal failure) N17.9 HTN (hypertension) I10 CHF (congestive heart failure) I50.9 COPD (chronic obstructive pulmonary disease) J44.9 Sepsis A41.9 Acute hypoxic respiratory failure J96.01
--- NOTE | 2023-10-13 09:05 | XRay Report ---
XR chest 1V portable CLINICAL HISTORY: eval for tube movment/pneumothorax TECHNIQUE: Single frontal radiograph of the chest was obtained. Comparison: Comparison is made to chest radiograph 10/12/2023 FINDINGS: Lines and tubes are stable. The cardiomediastinal silhouette is obscured. Multifocal airspace opaciti es are seen. No evidence of pleural effusion or pneumothorax. IMPRESSION: Lines and tubes are essentially stable. No evidence of pneumothorax. Cardiomegaly and multifocal airs pace opacities are unchanged. ACT 112: Negative or not required by law. Electronically signed by: Gopal Asif M.D. 10/13/2023 9:03 AM
--- NOTE | 2023-10-13 10:01 | XRay Report ---
XR chest 1V portable CLINICAL HISTORY: resp failure TECHNIQUE: Single frontal radiograph of the chest was obtained. Comparison: Comparison is made to chest radiograph 10/13/2023 FINDINGS: Lines and tubes are stable. The cardiomediastinal silhouette is stable. Multifocal airspace opacities are seen. No evidence of pleural effusion or pneumothorax. IMPRESSION: Lines and tubes are stable. Redemonstration of cardiomegaly and multifocal airspace opacities. ACT 112: Negative or not required by law. Electronically signed by: Gopal Asif M.D. 10/13/2023 9:58 AM
--- NOTE | 2023-10-13 10:21 | CT Scan Report ---
CT chest diagnostic wo con CLINICAL HISTORY: abnormal cxr TECHNIQUE: Multidetector row helical CT of the chest was performed. Coronal and sagittal reformations were obtained. Automated dose lowering techniques and/or adjustment according to patient size were u tilized for this exam. CT DOSE: 1390.23 mGy.cm Comparison: Comparison is made to chest radiograph 10/13/2023 FINDINGS: Lines and tubes: The endotracheal tube is in satisfactory position. The enteric tube side-port is at the gastroesophageal junction. Lungs and pleura: There is bilateral lower lung consolidation and atelectasis. A few scattered nodula r densities in the upper lungs may also represent infectious/inflammatory changes. Heart and pericardium: Cardiomegaly is seen with biatrial enlargement. Vessels: Mild atherosclerotic changes in the aorta and coronary arteries. Mediastinum and maryann: Subcentimeter lymph nodes are seen. Chest wall and lower neck: Small thyroid nodules are noted which do not require follow-up by ACR esther uriarte. Abdomen: Right renal cyst is seen. Bones: Degenerative changes of the thoracic spine. Old healed rib fractures are seen. IMPRESSION: 1. Bilateral consolidation in the lower lobes compatible with pneumonia and/or aspiration. Atelectas is and additional foci of likely pneumonia as above. 2. Enteric tube side-port lies at the gastroesophageal junction and can be advanced approximately 3 to 5 cm for improved positioning. ACT 112: Negative or not required by law. Electronically signed by: Gopal Asif M.D. 10/13/2023 10:18 AM
--- NOTE | 2023-10-13 14:52 | Hospitalist Progress Note ---
Date of Service October 13, 2023 Assessment & Plan (1) Sepsis: Plan: Sepsis, secondary to multifocal pneumonia, suspect gram negative pneumonia history of copd continues with significant leukocytosis Patient is with a severe acute respiratory acidosis and chronic underlying metabolic alkalosis on admission remains on pressors/ norepinephrine vasopressin and phenylephrine have stopped. Procalcitonin has trended downward Blood cultures, sputum culture negative to date, Respiratory biofire negative, random cortisol appropriate' respiratory culture is negative MRSA nares positive - On cefepime, vancomycin has been discontinued I did phone [facility] to determine if any cultures checked while he was in their care resulted for bacteria. The technologist available on 12 October stated that both urine and blood cultures were negative to date for growth continues intubation and ventilation (2) ARF (acute renal failure): Plan: Resolved at this time, hyponatremia is also resolved Rhabdomyolysis is noted (3) HTN (hypertension): Plan: Lisinopril held for renal failure, sepsis, and hypotension requiring pressors initial concern for HF ruled out as echo show preserved EF no RWMA elevated troponin from demand ischemia Plan heparin for DVT prevention Admission and Anticipated Discharge Date Admission Date: October 10, 2023 Subjective Intubated and sedated remains with low grade temps and leukocytosis Physical Exam Physical Exam: intubated and sedated coarse bilateral breath sounds +/- some abd discomfort to exam Results & Data Results & Data Vital Signs (Past 12 Hours) Vital Signs Temp Pulse Resp BP Pulse Ox O2 Del Method FiO2 10/13/23 12:00 50 10/13/23 11:10 72 26 H 91 50 10/13/23 11:00 99.3 F 72 111/53 L 91 10/13/23 10:00 99.3 F 93 H 101/51 L 91 10/13/23 09:00 99.7 F H 85 94/51 L 91 10/13/23 08:44 85 10/13/23 08:30 Mechanical Vent 10/13/23 08:00 99.9 F H 81 84/48 L 92 Mechanical Vent 50 10/13/23 08:00 50 10/13/23 07:30 Mechanical Vent 10/13/23 07:30 77 26 H 94 50 10/13/23 07:00 99.9 F H 78 93 Mechanical Vent 40 10/13/23 06:00 100.0 F H 84 24 93 10/13/23 05:00 100.2 F H 91 H 24 94 10/13/23 04:00 99/57 L 10/13/23 04:00 100.2 F H 91 H 24 95 10/13/23 03:56 88 25 H 93 80 10/13/23 03:53 75 10/13/23 03:00 100.2 F H 88 24 93 Laboratory Results Reviewed CBC reviewed chemistry PG Care Time/CCT Total # of Minutes Spent Total Time Spent with Patient: Total time spent is greater than 50% in coordination of care (as documented) at patient's floor/unit and/or counseling patient: Coding Level of Care Code 66612 SUB INP/OBS CARE 3/50MIN Diagnoses Sepsis A41.9 ARF (acute renal failure) N17.9 HTN (hypertension) I10
[2023-10-13] MEDS ORDERED: PROPOFOL BOLUS FROM BAG IV PRN (16:05)
[2023-10-13] MEDS: ICU ELECTROLYTE REPLACEMENT PROTOCOL SCH (16:36)
[2023-10-13] MEDS ORDERED: STAT IV Infusion **Titration per Protocol STA (19:53)
[2023-10-13] MEDS: PROPOFOL IV EMULSION 10 MG/ML 100 ML VIAL IV ONE (19:58)
[2023-10-13] MEDS: propofoL 1,000 MG/100 ML VIAL IV SCH (20:02)
[2023-10-13] MEDS: PROPOFOL BOLUS FROM BAG IV PRN (20:02)
[2023-10-14 05:23] LABS: Base Excess ABG 1.9 mEq/L (-9-1.8); HCO3 ABG 28 mmol/L (19-24); Oxygen Saturation ABG 97.9 % (90-95); PCO2 ABG 50 mmHg (35-46); PO2 ABG 88 mmHg (80-95); pH ABG 7.36 (7.35-7.45)
[2023-10-14 05:28] LABS: Allen Test Pos (Pos)
[2023-10-14 05:46] LABS: BUN Creatinine Ratio 33.7 (10-20); Calcium 8.9 mg/dl (8.6-10.3); Creatinine Clr Calc Pharmacy 115.2 ml/min; Est GFR (African American) 103.3 ml/min; Est GFR (Non-African American) 89.1 ml/min; Magnesium 2.6 mg/dl (1.7-2.4); Phosphorus 3.2 mg/dl (2.5-4.9); Potassium 4.2 mmol/L (3.5-5.1)
[2023-10-14 05:55] LABS: Partial Thromboplastin Ratio 0.9; Partial Thromboplastin Time 24 Seconds (21-31)
[2023-10-14 06:09] LABS: Hematocrit (blood only) 30.4 % (42.0-52.0); Hemoglobin 9.2 g/dl (14.0-18.0); Mean Corpuscular Hemoglobin 25.4 pg (25.0-34.0); Mean Corpuscular Hgb Conc 30.3 g/dL (32.0-36.0); Mean Platelet Volume 9.5 fL (9.4-12.4); Platelet Count 309 K/uL (130-400); RDW Coefficient of Variation 15.9 % (11.5-14.5); RDW Standard Deviation 49.1 fL (36.4-46.3); Red Blood Count 3.62 M/uL (4.70-6.10); White Blood Count 24.94 K/ul (4.8-10.8)
[2023-10-14 07:11] LABS: RBC Morphology Unremarkable
--- NOTE | 2023-10-14 07:17 | XRay Report ---
XR chest 1V portable CLINICAL HISTORY: Respiratory failure. COMPARISON STUDY: Chest radiograph and chest CT October 13, 2023 FINDINGS: The tip of the nasogastric tube is within the body of the stomach. Tip of endotracheal tube is 3.2 cm above the isidoro. Tip of left internal jugular central line is within the SVC. Patient is rotated. There is no pneumothorax. Right basilar consolidation persists. There is no pneumothorax. Tr gurwinder bilateral pleural effusions are present. Pulmonary vascular congestion. Cardiomediastinal silhoue tte is stable. IMPRESSION: 1. Satisfactory positioning of lines and tubes. 2. Persistent extensive airspace opacities consistent with pneumonia. 3. Pulmonary vascular congestion. ACT 112: Negative or not required by law. Electronically signed by: Cruzito Godwin M.D. 10/14/2023 7:15 AM
[2023-10-14] MEDS ORDERED: CISATRACURIUM BESYLATE IV SOLN 2 MG/ML 10 ML VIAL IV STA (08:50)
[2023-10-14] MEDS ORDERED: STAT IV/IM STA ×2 (08:50→08:53)
[2023-10-14] MEDS ORDERED: STAT IV Infusion **Titration per Protocol STA (08:50)
[2023-10-14 08:51] LABS: Neutrophils % (manual) 81 %
--- NOTE | 2023-10-14 09:20 | Critical Care Progress Note ---
Date of Service October 14, 2023 Assessment & Plan (1) Endotracheally intubated: (2) Acute hypoxic respiratory failure: (3) Septic shock: (4) ARF (acute renal failure): (5) Sedated: (6) HTN (hypertension): (7) CHF (congestive heart failure): (8) COPD (chronic obstructive pulmonary disease): Plan Assessment: Pt is a 67 yo male who presented to the hospital on 10/09 from [facility] for respiratory distress and possible sepsis/septic shock, admitted to the ICU for need for pressors and for need for mechanical ventilation due to hypoxemic respiratory failure and septic shock 24 hour events: Continues to require high amounts of FiO2 and PEEP. Also requiring high doses of propofol fentanyl. Plan: Neurologic: Triglycerides elevated. Will wean down propofol and augment sedation with ketamine and Versed. Will also wean down fentanyl. Will pursue neuromuscular blockade with Nimbex and prone the patient. Cardiac: Hypotension likely related to sedation. Also an element of septic shock. Echo from 10/10/2023 with an EF of 65 to 70%. Aortic valve sclerosis noted. Respiratory: CT chest from earlier this admission reviewed with evidence of posterior consolidative and atelectatic change. Patient hypoxemic likely from VQ mismatch. Will pursue proning for 16 hours to improve mismatch. Bronchoscopy from 10/13/2023 with negative Gram stain thus far. Patient with chronic oxygen need of 3 L/min via nasal cannula. Gastrointestinal: May start trophic tube feeds when pressor requirements decrease. PPI in place Renal/electrolytes: Presented with acute renal failure likely ATN. Creatinine now normal and CPK back to baseline. Initiate ICU electrolyte replacement protocol. Given the improvement in renal indices, no additional intervention required currently Genitourinary: Continue Robertson catheter for monitoring intake and output Endocrine: Glycemic control per protocol Hematologic: Mild anemia. No evidence of blood loss. No indication for transfusion. Continue to follow. Switch heparin 3 times daily to Lovenox 40 mg twice daily. Infectious disease: Suspect lung process but cultures are negative. May be hampered by administration of antibiotics at outside facility. Procalcitonin was significantly elevated but has significantly decreased. White blood cell count improving. Restart vancomycin given positive MRSA screen and minimal improvement in oxygenation. Continue cefepime. Follow cultures from bronchoscopy. Integumentary: No issues Lines/access Left IJ cath in place, arterial line, orogastric tube, endotracheal tube, Robertson catheter Plan of care coordinated with bedside nursing, RT and ICU pharmacist. CRITICAL CARE TIME - I have personally spent 62 minutes of critical care time in the direct management of this patient. This is a life/limb threatening event. This includes time spent evaluating patient, direct bedside care, chart review, placing orders, interpretation of diagnostic studies, discussion with consultants, patient, and family members, as well as other required patient management activities. This time is exclusive of all separately billable procedures, and teaching time and separate from and in addition to any other critical care service time. Admission and Anticipated Discharge Date Admission Date: October 10, 2023 Subjective Patient seen and examined. Remains on high levels of sedation with propofol and fentanyl. Not responsive to commands. Review of Systems Review of Systems: Unobtainable due to endotracheal tube Physical Exam Constitutional: + morbidly obese and + mechanically vent ilated Neck: trachea midline, no thyromegaly Respiratory: + cough; no respiratory distress and no labored breathing Auscultation: + diminished lung sounds and + rhonchi Cardiovascular: RRR, no murmur, no edema Gastrointestinal (Abdomen): normal bowel sounds, soft, nontender, no hepatosplenomegaly Musculoskeletal: Extremities: extremities normal to inspection Skin: no rashes, warm and dry Neurologic: Unable to assess as he is currently heavily sedated. Psychiatric: Unable to assess due to heavy sedation. Lymphatic: no cervical lymphadenopathy Results & Data Results & Data Vital Signs (Past 12 Hours) Vital Signs Temp Pulse Pulse Resp BP BP Pulse Ox 10/14/23 08:00 76 10/14/23 07:47 10/14/23 07:20 76 26 H 94 10/14/23 06:01 38.1 C H 72 26 H 96 10/14/23 06:01 106/62 10/14/23 05:01 117/55 L 10/14/23 05:01 38.1 C H 74 26 H 97 10/14/23 04:01 105/58 L 10/14/23 04:01 38.1 C H 75 26 H 95 10/14/23 04:00 10/14/23 03:15 97 H 27 H 94 10/14/23 03:01 114/60 10/14/23 03:01 38.1 C H 77 26 H 95 10/14/23 02:01 116/58 L 10/14/23 02:00 38.0 C H 66 26 H 93 10/14/23 01:00 37.8 C H 69 26 H 127/47 L 93 10/14/23 00:00 37.9 C H 71 26 H 116/47 L 92 10/14/23 00:00 72 10/14/23 00:00 10/13/23 23:00 38 C H 70 26 H 112/45 L 91 10/13/23 22:51 69 26 H 91 10/13/23 22:00 38 C H 74 26 H 120/48 L 93 O2 Del Method FiO2 10/14/23 08:00 10/14/23 07:47 60 10/14/23 07:20 70 10/14/23 06:01 10/14/23 06:01 10/14/23 05:01 10/14/23 05:01 10/14/23 04:01 10/14/23 04:01 10/14/23 04:00 80 10/14/23 03:15 80 10/14/23 03:01 10/14/23 03:01 10/14/23 02:01 10/14/23 02:00 10/14/23 01:00 Mechanical Vent 60 10/14/23 00:00 Mechanical Vent 60 10/14/23 00:00 10/14/23 00:00 60 10/13/23 23:00 Mechanical Vent 50 10/13/23 22:51 70 10/13/23 22:00 Mechanical Vent 50 Coding Level of Care Code 71868 CRITICAL CARE 1ST 30-74M Diagnoses Endotracheally intubated Z97.8 Acute hypoxic respiratory failure J96.01 Septic shock A41.9; R65.21 ARF (acute renal failure) N17.9 Sedated R41.89 HTN (hypertension) I10 CHF (congestive heart failure) I50.9 COPD (chronic obstructive pulmonary disease) J44.9
[2023-10-14] MEDS ORDERED: VANCOMYCIN CONSULT ACTIVE PRN (09:26)
[2023-10-14] MEDS: KETAMINE 100MG/ML 500 MG in SODIUM CHLORIDE 0.9% 495 ML IV SCH (10:20)
[2023-10-14] MEDS: MIDAZOLAM HCL 125 MG/250 ML BAG IV SCH (10:21)
[2023-10-14] MEDS: VANCOMYCIN HCL 1,750 MG in SODIUM CHLORIDE 0.9% 500 ML IV STA (10:50)
[2023-10-14] MEDS: CISATRACURIUM BESYLATE 40 MG in DEXTROSE 5% 80 ML IV SCH (11:29)
[2023-10-14] MEDS: ARTIFICIAL TEARS OP OINT 3.5 GM TUBE OP SCH (11:32)
[2023-10-14] MEDS: CISATRACURIUM BESYLATE IV SOLN 2 MG/ML 10 ML VIAL IV STA (11:43)
--- NOTE | 2023-10-14 11:56 | Pharmacy Report ---
Pharmacy PK ABX Note - Date of Service October 14, 2023 - Assessment and Plan Assessment 10/13 * Vancomycin discontinued on 10/12, restarted today for minimal improvement, positive MRSA nasal screen. Bronch was pending but now reporting no growth. Renal function has vastly improved, will redose with 1750 mg x 1 then start 1250 mg q8H * 67 year old M with septic shock receiving vancomycin/cefepime empirically for possible lung/urinary source. * Pertinent microbiologic data includes: Positive MRSA Nasal Swab, sputum, urine and blood culture pending. * Scr with significant improvement today, likely 2nd significant UOP * Discussed at multidisciplinary rounds yesterday - plan is to continue vanc for at least 72 hours or as dictated by new culture results/clinical status Plan Vancomycin * 1750 mg x 1 now * Start 1250 mg q8H * Predicted to achieve AUC/ANTWAN of 400-600 mg/L.hr * Random level ordered for 10/14 @ 0800 Pharmacy will continue to follow and will adjust dose/frequency as necessary. Thank you. Pharmacy has transitioned to AUC monitoring for vancomycin. AUC/ANTWAN is the preferred PK/PD target and is associated with decreased risk of nephrotoxicity compared to traditional trough targets.
--- NOTE | 2023-10-14 14:58 | Hospitalist Progress Note ---
Date of Service October 14, 2023 Assessment & Plan (1) Sepsis: Plan: Sepsis, secondary to multifocal pneumonia, suspect gram negative pneumonia history of copd continues with significant leukocytosis Patient is with a severe acute respiratory acidosis and chronic underlying metabolic alkalosis on admission remains on pressors/ norepinephrine vasopressin and phenylephrine have stopped. Procalcitonin has trended downward Blood cultures, sputum culture negative to date, Respiratory biofire negative, random cortisol appropriate' respiratory culture is negative MRSA nares positive - On cefepime, vancomycin has been discontinued, consider levaquin, legionella antigen pending I did phone [facility] to determine if any cultures checked while he was in their care resulted for bacteria. The technologist available on 12 October stated that both urine and blood cultures were negative to date for growth continues intubation and ventilation (2) ARF (acute renal failure): Plan: Resolved at this time, hyponatremia is also resolved Rhabdomyolysis is noted (3) HTN (hypertension): Plan: Lisinopril held for renal failure, sepsis, and hypotension requiring pressors initial concern for HF ruled out as echo show preserved EF no RWMA elevated troponin from demand ischemia Plan heparin for DVT prevention Admission and Anticipated Discharge Date Admission Date: October 10, 2023 Subjective Patient seen and examined. Remains on high levels of sedation with propofol and fentanyl. Not responsive to commands. Physical Exam Physical Exam: intubated and sedated coarse bilateral breath sounds +/- some abd discomfort to exam Results & Data Results & Data Vital Signs (Past 12 Hours) Vital Signs Temp Pulse Resp BP Pulse Ox O2 Del Method FiO2 10/14/23 13:00 99.0 F 76 24 92 10/14/23 13:00 117/70 10/14/23 12:00 86 24 96 10/14/23 12:00 45 10/14/23 11:10 87 28 H 93 45 10/14/23 11:01 109/61 10/14/23 11:01 100.0 F H 86 24 93 10/14/23 11:00 100.0 F H 80 24 93 10/14/23 10:01 100.6 F H 87 26 H 10/14/23 10:01 110/46 L 10/14/23 10:00 100.6 F H 83 24 92 10/14/23 09:01 100.6 F H 82 24 89 L 10/14/23 09:01 102/57 L 10/14/23 09:00 100.6 F H 82 24 90 10/14/23 08:00 100.8 F H 78 26 H 94 10/14/23 08:00 76 10/14/23 07:47 60 10/14/23 07:30 Mechanical Vent 60 10/14/23 07:20 76 26 H 94 70 10/14/23 07:00 100.8 F H 75 26 H 94 10/14/23 06:01 100.6 F H 72 26 H 96 10/14/23 06:01 106/62 10/14/23 05:01 117/55 L 10/14/23 05:01 100.6 F H 74 26 H 97 10/14/23 04:01 105/58 L 10/14/23 04:01 100.6 F H 75 26 H 95 10/14/23 04:00 80 10/14/23 03:15 97 H 27 H 94 80 10/14/23 03:01 114/60 10/14/23 03:01 100.6 F H 77 26 H 95 Laboratory Results reviewed cbc reviewed chemistry PG Care Time/CCT Total # of Minutes Spent Total Time Spent with Patient: Total time spent is greater than 50% in coordination of care (as documented) at patient's floor/unit and/or counseling patient: Coding Level of Care Code 94750 SUB INP/OBS CARE 3/50MIN Diagnoses Sepsis A41.9 ARF (acute renal failure) N17.9 HTN (hypertension) I10
[2023-10-14 16:00] LABS: iSTAT Art Bld Gas pCO2 Correct 54 mmHg (35-46); iSTAT Art Bld Gas pH Corrected 7.313 (7.35-7.45); iSTAT Arterial Blood Gas HCO3 27 meg/L (19-24); iSTAT Arterial Blood Gas pCO2 54 mmHg (35-46); iSTAT Arterial Blood Gas pH 7.31 (7.35-7.45); iSTAT Arterial Blood Gas pO2 77 mmHg (80-95); iSTAT Arterial Blood Gas pO2 C 78; iSTAT Carbon Dioxide 29 mmol/L (24-31); iSTAT FiO2 45 %; iSTAT Hematocrit 28 % (42-52); iSTAT Hemoglobin 9.5 g/dl (14.0-18.0); iSTAT Potassium 4.2 mmol/L (3.3-5.0); iSTAT Site Art Line; iSTAT Sodium 142 mmol/L (135-144)
[2023-10-14] MEDS ORDERED: Nursing to Pharmacy Communication SCH ×2 (16:30→21:45)
[2023-10-14] MEDS: levoFLOXacin/D5W 750 MG/150 ML BAG IV SCH (16:35)
[2023-10-14] MEDS: VANCOMYCIN HCL 1,250 MG in SODIUM CHLORIDE 0.9% 250 ML IV SCH (18:02)
[2023-10-14] MEDS: ENOXAPARIN INJ 40 MG/0.4 ML SYR SQ SCH (18:24)
[2023-10-14] MEDS: MIDAZOLAM BOLUS FROM BAG IV PRN (20:10)
[2023-10-14] MEDS: CISATRACURIUM BOLUS FROM BAG IV ONE (21:40)
[2023-10-15 04:39] LABS: iSTAT Art Bld Gas pCO2 Correct 51 mmHg (35-46); iSTAT Art Bld Gas pH Corrected 7.335 (7.35-7.45); iSTAT Arterial Blood Gas HCO3 28 meg/L (19-24); iSTAT Arterial Blood Gas pCO2 53 mmHg (35-46); iSTAT Arterial Blood Gas pH 7.33 (7.35-7.45); iSTAT Arterial Blood Gas pO2 78 mmHg (80-95); iSTAT Arterial Blood Gas pO2 C 75; iSTAT Carbon Dioxide 29 mmol/L (24-31); iSTAT FiO2 60 %; iSTAT Hematocrit 25 % (42-52); iSTAT Hemoglobin 8.5 g/dl (14.0-18.0); iSTAT Potassium 4.5 mmol/L (3.3-5.0); iSTAT Site Art Line; iSTAT Sodium 141 mmol/L (135-144)
[2023-10-15] MEDS: CISATRACURIUM BESYLATE IV SOLN 2 MG/ML 10 ML VIAL IV STA (05:05)
[2023-10-15 05:17] LABS: Hematocrit (blood only) 30.1 % (42.0-52.0); Hemoglobin 9.1 g/dl (14.0-18.0); Mean Corpuscular Hemoglobin 25.8 pg (25.0-34.0); Mean Corpuscular Hgb Conc 30.2 g/dL (32.0-36.0); Mean Corpuscular Volume 85.3 fL (80.0-100.0); Mean Platelet Volume 9.5 fL (9.4-12.4); Platelet Count 279 K/uL (130-400); RDW Coefficient of Variation 15.9 % (11.5-14.5); RDW Standard Deviation 49.3 fL (36.4-46.3); Red Blood Count 3.53 M/uL (4.70-6.10); White Blood Count 29.48 K/ul (4.8-10.8)
[2023-10-15 05:24] LABS: BUN Creatinine Ratio 38.4 (10-20); Calcium 8.5 mg/dl (8.6-10.3); Creatinine Clr Calc Pharmacy 140.5 ml/min; Est GFR (Non-African American) 96.7 ml/min; Magnesium 2.5 mg/dl (1.7-2.4); Phosphorus 3.4 mg/dl (2.5-4.9); Potassium 4.7 mmol/L (3.5-5.1)
[2023-10-15 05:37] LABS: Partial Thromboplastin Ratio 0.9; Partial Thromboplastin Time 24 Seconds (21-31)
[2023-10-15 05:40] LABS: iSTAT Art Bld Gas pCO2 Correct 63 mmHg (35-46); iSTAT Art Bld Gas pH Corrected 7.253 (7.35-7.45); iSTAT Arterial Blood Gas HCO3 28 meg/L (19-24); iSTAT Arterial Blood Gas pCO2 63 mmHg (35-46); iSTAT Arterial Blood Gas pH 7.25 (7.35-7.45); iSTAT Arterial Blood Gas pO2 69 mmHg (80-95); iSTAT Arterial Blood Gas pO2 C 68; iSTAT Carbon Dioxide 30 mmol/L (24-31); iSTAT FiO2 80 %; iSTAT Hematocrit 28 % (42-52); iSTAT Hemoglobin 9.5 g/dl (14.0-18.0); iSTAT Potassium 4.4 mmol/L (3.3-5.0); iSTAT Site Art Line; iSTAT Sodium 141 mmol/L (135-144)
[2023-10-15 06:01] LABS: ALC (manual) 1.47 K/uL (1.2-3.4); ANC (manual) 24.76 K/uL (1.4-6.5); Eosinophils # (manual) 0.88 K/uL (0-0.50); Eosinophils % (manual) 3 %; Lymphocytes # (manual) 1.47 K/uL (1.2-3.4); Lymphocytes % (manual) 5 %; Metamyelocytes # (manual) 0.88 K/uL (0-0); Metamyelocytes % (manual) 3 %; Monocytes # (manual) 0.88 K/uL (0.11-0.59); Monocytes % (manual) 3 %; Myelocytes # (manual) 0.59 K/uL (0-0); Myelocytes % (manual) 2 %; Neutrophils # (manual) 24.76 K/uL (1.40-6.50); Neutrophils % (manual) 84 %
--- NOTE | 2023-10-15 06:54 | Critical Care Progress Note ---
Date of Service October 15, 2023 Assessment & Plan (1) ARF (acute renal failure): (2) HTN (hypertension): (3) CHF (congestive heart failure): (4) COPD (chronic obstructive pulmonary disease): (5) Sepsis: (6) Acute hypoxic respiratory failure: Plan Assessment: Pt is a 67 yo male who presented to the hospital on 10/09 from [facility] for respiratory distress and possible sepsis/septic shock, admitted to the ICU for need for pressors and for need for mechanical ventilation due to hypoxemic respiratory failure and septic shock 24 hour events: Proned yesterday and became hypotensive again, once again requiring levophed but has been weaned down to 0.02 mcg/kg/min dosing. Requiring FiO2 60% and PEEP of 14 this morning. Plan: Neurologic: Triglycerides elevated. Continue to wean down propofol and augment sedation with ketamine and Versed. Will also wean down fentanyl. Will pursue neuromuscular blockade with Nimbex and prone the patient. Will recheck triglycerides tomorrow morning. Cardiac: Hypotension likely related to sedation. On low dose levophed today, will continue to wean as tolerated. Also an element of septic shock. Echo from 10/10/2023 with an EF of 65 to 70%. Aortic valve sclerosis noted without significant aortic valvular stenosis. Will check EKG today. Respiratory: CT chest from earlier this admission reviewed with evidence of posterior consolidative and atelectatic change. Patient hypoxemic likely from VQ mismatch. Proned yesterday for 16 hours, will prone again today. CXR today improved some. Bronchoscopy from 10/13/2023 with negative Gram stain. Patient with chronic oxygen need of 3 L/min via nasal cannula prior to admission. Gastrointestinal: May start trophic tube feeds when pressor requirements decrease. Continue PPI. Will start bowel regime and potentially start feeds later today. Liver function and lipase to be checked today. Renal/electrolytes: Presented with acute renal failure likely ATN. Creatinine now normal and CPK back to baseline. Continue ICU electrolyte replacement protocol. Given the improvement in renal indices, no additional intervention required currently. Genitourinary: Continue Robertson catheter for monitoring intake and output. Endocrine: Glycemic control per protocol Hematologic: Mild anemia. No evidence of blood loss. No indication for transfusion. Continue to follow. Continue Lovenox 40 mg twice daily. Monitor CBC daily. Infectious disease: Suspect lung process but cultures are negative. May be hampered by administration of antibiotics at outside facility. Procalcitonin was significantly elevated but has significantly decreased. White blood cell count slight increase today from yesterday. Vancomycin was restarted yesterday given positive MRSA screen and minimal improvement in oxygenation. Continue cefepime. Follow cultures from bronchoscopy. Legionella pending. Integumentary: No issues Lines/access Left IJ cath in place, arterial line, orogastric tube, endotracheal tube, Robertson catheter Thank you for allowing us to participate in your care. Please see attending attestation for additional plan recommendations. Admission and Anticipated Discharge Date Admission Date: October 10, 2023 Supervising Physician Co-Signing Physician Notes Patient seen and examined with the resident physician. Agree with the assessment and plan aside for any additions/exceptions noted: Patient remains with severe ARDS and hypercapnic respiratory failure. Continues to require high amounts of sedation. Trying to augment requirements with the use of multimodal regimen including ketamine, Versed, fentanyl and Nimbex. Patient placed back in a prone position today at 11 AM. Will prone for an additional 16 to 20 hours. FiO2 requirements have improved dramatically with proning. X-ray today also seems to be improving. Levophed requirements remain. Continue with vancomycin and Levaquin. Cefepime discontinued. Follow urine Legionella antigen. EKG with an unremarkable QTc interval. Will start trophic tube feeds today and monitor closely for signs of aspiration in light of his neuromuscular blockade and proning positioning. updated extensively at bedside. Subjective Intubated and sedated this morning. Does not awake to verbal commands. No respiratory distress noted at this time. Review of Systems Review of Systems: As per HPI above. Physical Exam Physical Exam: General: Intubated and sedated, HEENT: Normocephalic, atraumatic, pupils constricted bilaterally Resp: On vent, no signs of resp distress at this time, diminished breath sounds with some rhonchi in lung bases Cardio: Regular rate and rhythm, no murmurs, GI: Some distention noted, bowel sounds hypoactive Skin: Warm, dry, no rashes on visible skin Results & Data Results & Data Vital Signs (Past 12 Hours) Vital Signs Temp Pulse Resp BP Pulse Ox O2 Del Method FiO2 10/15/23 05:15 95 H 24 94 80 10/15/23 04:00 88 10/15/23 03:00 36.5 C 87 26 H 91 10/15/23 03:00 105/56 L 10/15/23 02:50 94 H 27 H 91 60 10/15/23 02:00 118/73 10/15/23 02:00 36.4 C L 88 26 H 99 10/15/23 01:00 36.4 C L 88 26 H 100 10/15/23 01:00 112/61 10/15/23 00:00 125/75 10/15/23 00:00 36.4 C L 85 26 H 99 10/15/23 00:00 40 10/15/23 00:00 89 117/53 L 10/15/23 00:00 85 10/14/23 23:00 106/62 10/14/23 23:00 36.4 C L 79 26 H 97 10/14/23 22:54 79 27 H 98 40 10/14/23 22:00 36.5 C 83 26 H 97 10/14/23 22:00 104/63 10/14/23 21:00 36.6 C 81 26 H 96 10/14/23 21:00 119/73 10/14/23 20:13 81 26 H 96 40 10/14/23 20:00 Mechanical Vent 40 10/14/23 20:00 36.7 C 79 26 H 99 10/14/23 20:00 125/80 10/14/23 20:00 86 10/14/23 19:00 113/70 10/14/23 19:00 36.8 C 81 21 97 Resident Activity Tracking Resident Involvement: Resident Care Provided Care Provided: Adult Hospital Medicine
--- NOTE | 2023-10-15 07:17 | XRay Report ---
SINGLE VIEW CHEST CLINICAL HISTORY: Respiratory failure FINDINGS: An AP, portable, upright chest radiograph is compared to study is dated 10/15/2023. Correlat ion is made with chest CT dated 10/13/2023. The examination is degraded by portable technique and daniel ent rotation. An endotracheal tube, an enteric tube, and a left internal jugular central venous lisa ter are unchanged in position. The cardiomediastinal silhouette is top normal for projection. There i s pulmonary vascular congestion. Bilateral airspace opacities are noted. There is elevation right hem idiaphragm. Layering pleural effusions are seen with dependent Consolidation, right larger than left. No pneumothorax is seen. The bony thorax is grossly intact. IMPRESSION: 1. Stable lines and tubes. 2. Pulmonary vascular congestion persists. 3. Multifocal bilateral airspace consolidation is similar to previous, as are small pleural effusions . ACT 112: Negative or not required by law. Electronically signed by: Mehrdad Arteaga M.D. 10/15/2023 7:16 AM
[2023-10-15 07:45] LABS: ALC (manual) 1.75 K/uL (1.2-3.4); Eosinophils # (manual) 0.75 K/uL (0-0.50); Eosinophils % (manual) 3 %; Lymphocytes # (manual) 1.75 K/uL (1.2-3.4); Lymphocytes % (manual) 7 %; Metamyelocytes # (manual) 0.75 K/uL (0-0); Metamyelocytes % (manual) 3 %; Monocytes # (manual) 0.25 K/uL (0.11-0.59); Monocytes % (manual) 1 %; Myelocytes # (manual) 1.25 K/uL (0-0); Myelocytes % (manual) 5 %
[2023-10-15] MEDS: VANCOMYCIN LEVEL ONE (07:56)
[2023-10-15 08:58] LABS: Albumin Level 2.5 gm/dl (3.4-5.0); Bilirubin Direct 1.2 mg/dl (0-0.2); Bilirubin,Total 1.8 mg/dl (0.2-1.0); Total Protein 6.1 gm/dl (6.0-8.3)
[2023-10-15 09:13] LABS: Thyroid Stimulating Hormone 0.602 uIu/ml (0.300-4.500)
--- NOTE | 2023-10-15 09:25 | Billing Data ---
Date of Service October 15, 2023 CRITICAL CARE TIME - I have personally spent 48 minutes of critical care time in the direct management of this patient. This is a life/limb threatening event. This includes time spent evaluating patient, direct bedside care, chart review, placing orders, interpretation of diagnostic studies, discussion with consultants, patient, and family members, as well as other required patient management activities. This time is exclusive of all separately billable procedures, and teaching time and separate from and in addition to any other critical care service time. Coding Level of Care Code 94812 CRITICAL CARE 1ST 30-74M
[2023-10-15] MEDS: DOCUSATE SODIUM/SENNA 50/8.6MG TAB PO SCH (09:51)
[2023-10-15] MEDS: POLYETHYLENE (MIRALAX) 17 GM PACK PO SCH (09:51)
[2023-10-15] MEDS ORDERED: CISATRACURIUM BESYLATE IV SCH (10:15)
[2023-10-15] MEDS ORDERED: DEXTROSE 5% IV SCH (10:15)
--- NOTE | 2023-10-15 10:18 | Hospitalist Progress Note ---
Date of Service October 15, 2023 Assessment & Plan (1) Sepsis: Plan: Sepsis, secondary to multifocal pneumonia, suspect gram negative pneumonia history of copd continues with significant leukocytosis Patient is with a severe acute respiratory acidosis and chronic underlying metabolic alkalosis on admission remains on pressors/ norepinephrine vasopressin and phenylephrine have stopped. 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 Review of Systems Review of Systems: All systems reviewed & are unremarkable except as noted in HPI & below Physical Exam Physical Exam: Patient is intubated and sedated Results & Data Results & Data Vital Signs (Past 12 Hours) Vital Signs Temp Pulse Resp BP Pulse Ox O2 Del Method FiO2 10/15/23 08:07 91 H 26 H 95 60 10/15/23 07:57 Mechanical Vent 60 10/15/23 07:35 92 H 10/15/23 07:25 60 10/15/23 07:00 91 H 26 H 94 10/15/23 07:00 103/66 10/15/23 05:15 95 H 24 94 80 10/15/23 04:00 88 10/15/23 03:00 36.5 C 87 26 H 91 10/15/23 03:00 105/56 L 10/15/23 02:50 94 H 27 H 91 60 10/15/23 02:00 118/73 10/15/23 02:00 36.4 C L 88 26 H 99 10/15/23 01:00 36.4 C L 88 26 H 100 10/15/23 01:00 112/61 10/15/23 00:00 125/75 10/15/23 00:00 36.4 C L 85 26 H 99 10/15/23 00:00 40 10/15/23 00:00 89 117/53 L 10/15/23 00:00 85 10/14/23 23:00 106/62 10/14/23 23:00 36.4 C L 79 26 H 97 10/14/23 22:54 79 27 H 98 40 PG Care Time/CCT Total # of Minutes Spent Total Time Spent with Patient: Total time spent is greater than 50% in coordination of care (as documented) at patient's floor/unit and/or counseling patient: Coding Level of Care Code 83404 SUB INP/OBS CARE 3/50MIN Diagnoses Sepsis A41.9 ARF (acute renal failure) N17.9 HTN (hypertension) I10
--- NOTE | 2023-10-15 11:22 | Pharmacy Report ---
Pharmacy PK ABX Note - Date of Service October 15, 2023 - Assessment and Plan Assessment 10/14 * WBC up-trending. Tmax 38.2 last 24 hrs. * No new micro data. Both bronch washings and sputum cx's = no growth. Legionella UA results pending. Patient is now on Levofloxacin initiated by H ospitalist service. Cefepime d/c'd by English Drawer this AM. Per most recent antibiogram, pseudomonas aeruginosa sens ~85% w/ Levofloxacin vs 94% w/ cefepime. No prior h/o pseudomonas infection documented. * Pressors being weaned. * P/F ratio still < 100, paralytics/sedation/vent optimization in progress. * Renal fxn stable, vanco trough level 18.4 this AM (prior doses hung on schedule and level was appropriately timed). 10/13 * Vancomycin discontinued on 10/12, restarted today for minimal improvement, positive MRSA nasal screen. Bronch was pending but now reporting no growth. Renal function has vastly improved, will redose with 1750 mg x 1 then start 1250 mg q8H * 67 year old M with septic shock receiving vancomycin/cefepime empirically for possible lung/urinary source. * Pertinent microbiologic data includes: Positive MRSA Nasal Swab, sputum, urine and blood culture pending. * Scr with significant improvement today, likely 2nd significant UOP * Discussed at multidisciplinary rounds yesterday - plan is to continue vanc for at least 72 hours or as dictated by new culture results/clinical status Plan Vancomycin * Will change maint dose to 1750mg Q 12 hrs based upon most recent data * Predicted to achieve AUC/ANTWAN of 400-600 mg/L.hr with near 100% certainty and lesser risk of nephrotoxicity vs 1250mg Q 8 hr regimen * Will reassess level in 2-3 days if therapy to continue. Pharmacy will continue to follow and will adjust dose/frequency as necessary. Thank you. Pharmacy has transitioned to AUC monitoring for vancomycin. AUC/ANTWAN is the preferred PK/PD target and is associated with decreased risk of nephrotoxicity compared to traditional trough targets.
[2023-10-15] MEDS: CISATRACURIUM BESYLATE IV SCH (12:25)
[2023-10-15] MEDS: DEXTROSE 5% IV SCH (12:25)
--- NOTE | 2023-10-15 12:57 | Electrocardiogram Report ---
Test Reason : Blood Pressure : / mmHG Vent. Rate : 085 BPM Atrial Rate : 085 BPM P-R Int : 198 ms QRS Dur : 098 ms QT Int : 370 ms P-R-T Axes : 067 052 020 degrees QTc Int : 440 ms Sinus rhythm with occasional Premature ventricular complexes Low voltage QRS Borderline ECG When compared with ECG of 10-OCT-2023 14:03, Premature ventricular complexes are now Present Confirmed by Messi Ribeiro ([id number]) on 10/15/2023 12:57:41 PM Referred By: Ju Navarrete Confirmed By:Messi Ribeiro
[2023-10-15] MEDS: TUBE FEEDING WATER FLUSH OG SCH (13:25)
[2023-10-15] MEDS: PEPTAMEN INTENSE VHP 1.0 CAL 1,000 ML BAG OG SCH (14:34)
[2023-10-15] MEDS: VANCOMYCIN HCL 1,750 MG in SODIUM CHLORIDE 0.9% 500 ML IV SCH (20:19)
[2023-10-16 04:29] LABS: iSTAT Art Bld Gas pCO2 Correct 40 mmHg (35-46); iSTAT Arterial Blood Gas HCO3 23 meg/L (19-24); iSTAT Arterial Blood Gas pCO2 39 mmHg (35-46); iSTAT Arterial Blood Gas pH 7.39 (7.35-7.45); iSTAT Arterial Blood Gas pO2 77 mmHg (80-95); iSTAT Arterial Blood Gas pO2 C 80; iSTAT Carbon Dioxide 24 mmol/L (24-31); iSTAT FiO2 35 %; iSTAT Hematocrit 24 % (42-52); iSTAT Hemoglobin 8.2 g/dl (14.0-18.0); iSTAT Potassium 4.3 mmol/L (3.3-5.0); iSTAT Site Art Line; iSTAT Sodium 140 mmol/L (135-144)
[2023-10-16 05:21] LABS: Hematocrit (blood only) 28.7 % (42.0-52.0); Hemoglobin 8.8 g/dl (14.0-18.0); Mean Corpuscular Hemoglobin 25.7 pg (25.0-34.0); Mean Corpuscular Hgb Conc 30.7 g/dL (32.0-36.0); Mean Corpuscular Volume 83.9 fL (80.0-100.0); Mean Platelet Volume 9.5 fL (9.4-12.4); Platelet Count 269 K/uL (130-400); RDW Coefficient of Variation 15.9 % (11.5-14.5); RDW Standard Deviation 47.9 fL (36.4-46.3); Red Blood Count 3.42 M/uL (4.70-6.10)
[2023-10-16 05:27] LABS: iSTAT Art Bld Gas pCO2 Correct 47 mmHg (35-46); iSTAT Art Bld Gas pH Corrected 7.327 (7.35-7.45); iSTAT Arterial Blood Gas HCO3 25 meg/L (19-24); iSTAT Arterial Blood Gas pCO2 47 mmHg (35-46); iSTAT Arterial Blood Gas pH 7.33 (7.35-7.45); iSTAT Arterial Blood Gas pO2 93 mmHg (80-95); iSTAT Arterial Blood Gas pO2 C 94; iSTAT Carbon Dioxide 26 mmol/L (24-31); iSTAT FiO2 50 %; iSTAT Hematocrit 26 % (42-52); iSTAT Hemoglobin 8.8 g/dl (14.0-18.0); iSTAT Potassium 4.4 mmol/L (3.3-5.0); iSTAT Site Art Line; iSTAT Sodium 139 mmol/L (135-144)
[2023-10-16 05:36] LABS: BUN Creatinine Ratio 34.1 (10-20); Calcium 7.9 mg/dl (8.6-10.3); Creatinine Clr Calc Pharmacy 116.2 ml/min; Est GFR (African American) 103.7 ml/min; Est GFR (Non-African American) 89.5 ml/min; Magnesium 2.2 mg/dl (1.7-2.4); Phosphorus 2.5 mg/dl (2.5-4.9); Potassium 4.4 mmol/L (3.5-5.1)
[2023-10-16 05:47] LABS: Partial Thromboplastin Ratio 0.9; Partial Thromboplastin Time 25 Seconds (21-31)
[2023-10-16] MEDS ORDERED: SODIUM PHOSPHATE 3 MMOL/1 ML INFUSION IV STA (06:36)
[2023-10-16 06:38] LABS: ALC (manual) 1.53 K/uL (1.2-3.4); ANC (manual) 17.74 K/uL (1.4-6.5); Eosinophils # (manual) 0.22 K/uL (0-0.50); Eosinophils % (manual) 1 %; Lymphocytes # (manual) 1.53 K/uL (1.2-3.4); Lymphocytes % (manual) 7 %; Metamyelocytes # (manual) 0.66 K/uL (0-0); Metamyelocytes % (manual) 3 %; Monocytes # (manual) 1.09 K/uL (0.11-0.59); Monocytes % (manual) 5 %; Myelocytes # (manual) 0.66 K/uL (0-0); Myelocytes % (manual) 3 %; Neutrophils # (manual) 17.74 K/uL (1.40-6.50); Neutrophils % (manual) 81 %; RBC Morphology Unremarkable
--- NOTE | 2023-10-16 06:47 | Critical Care Progress Note ---
Date of Service October 16, 2023 Assessment & Plan (1) ARF (acute renal failure): (2) HTN (hypertension): (3) CHF (congestive heart failure): (4) COPD (chronic obstructive pulmonary disease): (5) Sepsis: (6) Acute hypoxic respiratory failure: Plan Assessment: Pt is a 67 yo male who presented to the hospital on 10/09 from [facility] for respiratory distress and possible sepsis/septic shock, admitted to the ICU for need for pressors and for need for mechanical ventilation due to hypoxemic respiratory failure and septic shock. 24 hour events: Proned once again yesterday with improvement noted on ABG. Uneventful overnight. Feeds started yesterday and well tolerated so far. CXR this morning with modest right middle lobe improvement. Plan: Neurologic: Triglycerides elevated noted on labs again today. Continue sedation with ketamine and Versed. Fentanyl weaned down to 225 mg/hr. Pt was proned yesterday. Cardiac: Hypotension likely related to sedation. Now off of levophed. Also an element of septic shock. Echo from 10/10/2023 with an EF of 65 to 70%. Aortic valve sclerosis noted without significant aortic valvular stenosis. EKG yesterday unremarkable. Respiratory: CT chest from earlier this admission reviewed with evidence of posterior consolidative and atelectatic change. Patient hypoxemic likely from VQ mismatch. Proned again yesterday with improvement in ABG and CXR today improved some. Bronchoscopy from 10/13/2023 with negative Gram stain and neg culture. Patient with chronic oxygen need of 3 L/min via nasal cannula prior to admission. Gastrointestinal: Continue tube feeds. Continue PPI. Will start bowel regime and potentially start feeds later today. Lipase yesterday 83. LFTs with mildly elevated AST and alk phosph. Renal/electrolytes: Presented with acute renal failure likely ATN. Creatinine now normal and CPK back to baseline. Continue ICU electrolyte replacement protocol. Given the improvement in renal indices, no additional intervention required currently. Will do dose of lasix today for positive fluid balance. Genitourinary: Continue Robertson catheter for monitoring intake and output. Endocrine: Glycemic control per protocol Hematologic: Mild anemia. No evidence of blood loss. No indication for transfusion. Continue to follow. Continue Lovenox 40 mg twice daily. Monitor CBC daily. Infectious disease: Suspect lung process but cultures are negative. May be hampered by administration of antibiotics at outside facility. Procalcitonin was significantly elevated but has significantly decreased. White blood cell count slight increase today from yesterday. Vancomycin was restarted yesterday given positive MRSA screen and minimal improvement in oxygenation. Continue Levaquin. Cultures from bronchoscopy neg. Legionella pending. Integumentary: No issues Lines/access Left IJ cath in place, arterial line, orogastric tube, endotracheal tube, Robertson catheter Thank you for allowing us to participate in your care. Please see attending attestation for additional plan recommendations. Admission and Anticipated Discharge Date Admission Date: October 10, 2023 Supervising Physician Co-Signing Physician Notes Patient seen and examined. Agree with the note by the resident physician aside for any additions/exceptions noted: Patient is status post proning x 2 and 48 hours of neuromuscular blockade. Hypoxemia has improved significantly. Patient mildly volume overloaded this morning and responded favorably to 40 mg of IV Lasix. Currently on spontaneous breathing trial, but remains tachypneic with respiratory rates in the 30s. Also with some level of anxiety. Precedex initiated with mild improvement in anxiety. Overall his white count is improving and his fever curve is improved as well. Continuing with vancomycin and Levaquin at this time. Urine Legionella antigen remains pending. Fortunately, as noted above, mental status appears to be largely intact and patient responding appropriately to commands and questions. He does become agitated at times and has required restraints on his upper extremities to keep him from pulling out lines and tubes. Subjective Pt is intubated and sedated this morning. Does not awaken to verbal stimuli. Otherwise resting comfortably. Review of Systems Review of Systems: Unable to obtain as pt is intubated and sedated per HPI above. Physical Exam Physical Exam: General: Intubated and sedated, HEENT: Normocephalic, atraumatic, Resp: On vent, no signs of resp distress at this time, diminished breath sounds with some rhonchi in lung bases Cardio: Regular rate and rhythm, no murmurs, GI: Some distention noted, bowel sounds very hypoactive Skin: Warm, dry, no rashes on visible skin Results & Data Results & Data Vital Signs (Past 12 Hours) Vital Signs Temp Pulse Resp BP Pulse Ox O2 Del Method FiO2 10/16/23 05:30 40 10/16/23 05:03 26 H 70 10/16/23 05:00 125/73 10/16/23 05:00 37.3 C 102 H 27 H 94 10/16/23 04:30 37.5 C 86 26 H 96 10/16/23 04:00 121/66 10/16/23 04:00 37.5 C 80 26 H 97 10/16/23 04:00 35 10/16/23 04:00 87 121/51 L 10/16/23 03:30 37.5 C 89 26 H 96 10/16/23 03:00 120/71 10/16/23 03:00 37.4 C 84 26 H 97 10/16/23 02:57 26 H 35 10/16/23 02:30 37.4 C 83 26 H 96 10/16/23 02:00 37.4 C 86 26 H 97 10/16/23 02:00 109/64 10/16/23 01:30 37.4 C 85 26 H 97 10/16/23 01:00 112/63 10/16/23 01:00 37.4 C 75 26 H 98 10/16/23 00:30 37.3 C 75 26 H 98 10/16/23 00:00 114/62 10/16/23 00:00 37.3 C 75 26 H 97 10/16/23 00:00 35 10/16/23 00:00 77 117/51 L 10/15/23 23:46 79 10/15/23 23:35 79 26 H 96 35 10/15/23 23:30 37.3 C 87 26 H 90 10/15/23 23:00 111/60 10/15/23 23:00 37.2 C 77 26 H 97 10/15/23 22:30 37.2 C 79 26 H 96 10/15/23 22:00 113/61 10/15/23 22:00 37.2 C 76 26 H 97 10/15/23 21:30 37.1 C 78 26 H 96 10/15/23 21:00 37.1 C 82 26 H 95 10/15/23 21:00 108/62 10/15/23 20:55 Mechanical Vent 35 10/15/23 20:30 37.1 C 86 26 H 95 10/15/23 20:01 27 H 35 10/15/23 20:00 37.1 C 86 26 H 95 10/15/23 20:00 109/60 05/28/24 20:00 35 10/15/23 20:00 84 106/50 L 10/15/23 19:30 37.1 C 91 H 26 H 95 10/15/23 19:00 117/68 10/15/23 19:00 37.1 C 86 26 H 95 Resident Activity Tracking Resident Involvement: Resident Care Provided Care Provided: Adult Hospital Medicine
[2023-10-16] MEDS: SODIUM PHOSPHATE 9 MMOL in SODIUM CHLORIDE 0.9% 250 ML IV ONE (07:50)
[2023-10-16] MEDS: MULTI VIT W/MINERALS LIQUID 15 ML UDC NG SCH (07:54)
[2023-10-16] MEDS: FUROSEMIDE 40 MG/4 ML VIAL IV ONE (08:50)
[2023-10-16] MEDS ORDERED: STAT IV Infusion **Titration per Protocol STA (11:09)
[2023-10-16] MEDS: dexMEDEtomidine 200 MCG/50 ML BAG IV SCH (11:29)
--- NOTE | 2023-10-16 14:17 | XRay Report ---
XR chest 1V portable CLINICAL HISTORY: resp failure TECHNIQUE: Single frontal radiograph of the chest was obtained. Comparison: Comparison is made to chest radiograph 10/15/2023 FINDINGS: Lines and tubes are stable. Cardiomegaly is noted. There is prominence and cephalization of the vascu lature with Pat B lines seen. Airspace opacity in the right midlung has improved. Small bilateral pleural effusions are seen. IMPRESSION: 1. Cardiomegaly and moderate pulmonary edema. Small left pleural effusion. 2. Airspace opacities have improved from the prior exam. ACT 112: Negative or not required by law. Electronically signed by: Gopal Asif M.D. 10/16/2023 2:16 PM
[2023-10-16] MEDS: dexMEDEtomidine 400 MCG/100 ML BAG IV SCH (14:53)
--- NOTE | 2023-10-16 16:26 | Billing Data ---
Date of Service October 16, 2023 CRITICAL CARE TIME - I have personally spent 44 minutes of critical care time in the direct management of this patient. This is a life/limb threatening event. This includes time spent evaluating patient, direct bedside care, chart review, placing orders, interpretation of diagnostic studies, discussion with consultants, patient, and family members, as well as other required patient management activities. This time is exclusive of all separately billable procedures, and teaching time and separate from and in addition to any other critical care service time. Coding Level of Care Code 67354 CRITICAL CARE 1ST 30-74M
--- NOTE | 2023-10-16 22:15 | Hospitalist Progress Note ---
Date of Service October 16, 2023 Assessment & Plan (1) Sepsis: Plan: Sepsis, secondary to multifocal pneumonia, suspect gram negative pneumonia history of copd continues with significant leukocytosis Patient is with a severe acute respiratory acidosis and chronic underlying metabolic alkalosis on admission remains on pressors/ norepinephrine vasopressin and phenylephrine have stopped. 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 (2) ARF (acute renal failure): Plan: Resolved at this time, hyponatremia is also resolved Rhabdomyolysis is noted (3) HTN (hypertension): Plan: Lisinopril held for renal failure, sepsis, and hypotension requiring pressors initial concern for HF ruled out as echo show preserved EF no RWMA elevated troponin from demand ischemia Plan heparin for DVT prevention Admission and Anticipated Discharge Date Admission Date: October 10, 2023 Subjective Patient is intubated and sedated. Review of Systems Review of Systems: All systems reviewed & are unremarkable except as noted in HPI & below Physical Exam Physical Exam: Patient is intubated and sedated Results & Data Results & Data Vital Signs (Past 12 Hours) Vital Signs Temp Pulse Pulse Resp BP BP Pulse Ox 10/16/23 21:00 36.9 C 70 22 95 10/16/23 21:00 141/70 H 10/16/23 20:47 37 H 10/16/23 20:00 121/75 10/16/23 20:00 36.8 C 96 H 31 H 93 10/16/23 20:00 10/16/23 19:00 130/72 10/16/23 19:00 36.7 C 86 30 H 94 10/16/23 17:00 36.7 C 93 H 31 H 95 10/16/23 17:00 122/71 10/16/23 16:00 121/64 10/16/23 16:00 37.0 C 99 H 31 H 99 10/16/23 16:00 10/16/23 15:30 74 29 H 100 10/16/23 15:00 107/58 L 10/16/23 15:00 37.2 C 78 26 H 99 10/16/23 14:00 107/58 L 10/16/23 14:00 37.1 C 87 28 H 85 L 10/16/23 13:00 37.1 C 108 H 36 H 91 10/16/23 13:00 128/69 10/16/23 12:55 36 H 94 10/16/23 12:34 37.1 C 112 H 30 H 94 10/16/23 12:00 10/16/23 11:34 106 H 30 H 96 10/16/23 11:19 36.9 C 101 H 26 H 147/58 H 97 O2 Del Method FiO2 10/16/23 21:00 10/16/23 21:00 10/16/23 20:47 40 10/16/23 20:00 10/16/23 20:00 10/16/23 20:00 40 10/16/23 19:00 10/16/23 19:00 10/16/23 17:00 10/16/23 17:00 10/16/23 16:00 10/16/23 16:00 10/16/23 16:00 40 10/16/23 15:30 40 10/16/23 15:00 10/16/23 15:00 10/16/23 14:00 10/16/23 14:00 10/16/23 13:00 10/16/23 13:00 10/16/23 12:55 40 10/16/23 12:34 10/16/23 12:00 40 10/16/23 11:34 40 10/16/23 11:19 Mechanical Vent 40 PG Care Time/CCT Total # of Minutes Spent Total Time Spent with Patient: Total time spent is greater than 50% in coordination of care (as documented) at patient's floor/unit and/or counseling patient: Coding Level of Care Code 48046 SUB INP/OBS CARE 2/35MIN Diagnoses Sepsis A41.9 ARF (acute renal failure) N17.9 HTN (hypertension) I10
[2023-10-17] MEDS ORDERED: ACETAMINOPHEN 325 MG TAB PO PRN (01:10)
[2023-10-17] MEDS: ACETAMINOPHEN 325 MG TAB PO ONE (01:24)
[2023-10-17 05:08] LABS: Hematocrit (blood only) 26.3 % (42.0-52.0); Hemoglobin 8.3 g/dl (14.0-18.0); Mean Corpuscular Hemoglobin 25.8 pg (25.0-34.0); Mean Corpuscular Hgb Conc 31.6 g/dL (32.0-36.0); Mean Corpuscular Volume 81.7 fL (80.0-100.0); Mean Platelet Volume 9.4 fL (9.4-12.4); Platelet Count 239 K/uL (130-400); RDW Coefficient of Variation 15.9 % (11.5-14.5); RDW Standard Deviation 47.3 fL (36.4-46.3); Red Blood Count 3.22 M/uL (4.70-6.10); White Blood Count 16.94 K/ul (4.8-10.8)
[2023-10-17 05:23] LABS: BUN Creatinine Ratio 32.6 (10-20); Calcium 8.5 mg/dl (8.6-10.3); Creatinine Clr Calc Pharmacy 113.8 ml/min; Est GFR (African American) 100.1 ml/min; Est GFR (Non-African American) 86.4 ml/min; Magnesium 2.1 mg/dl (1.7-2.4); Phosphorus 2.6 mg/dl (2.5-4.9); Potassium 3.8 mmol/L (3.5-5.1)
[2023-10-17 05:33] LABS: Partial Thromboplastin Time 26 Seconds (21-31)
[2023-10-17] MEDS: POTASSIUM CHLORIDE 20 MEQ/15 ML UDC NG SCH (05:55)
[2023-10-17 07:00] LABS: ALC (manual) 1.69 K/uL (1.2-3.4); ANC (manual) 13.04 K/uL (1.4-6.5); Eosinophils # (manual) 0.51 K/uL (0-0.50); Eosinophils % (manual) 3 %; Lymphocytes # (manual) 1.69 K/uL (1.2-3.4); Lymphocytes % (manual) 10 %; Metamyelocytes # (manual) 0.68 K/uL (0-0); Metamyelocytes % (manual) 4 %; Monocytes # (manual) 0.34 K/uL (0.11-0.59); Monocytes % (manual) 2 %; Myelocytes # (manual) 0.68 K/uL (0-0); Myelocytes % (manual) 4 %; Neutrophils # (manual) 13.04 K/uL (1.40-6.50); Neutrophils % (manual) 77 %; Polychromasia 1+; Rouleaux 1+
--- NOTE | 2023-10-17 07:34 | Critical Care Progress Note ---
Date of Service October 17, 2023 Assessment & Plan (1) ARF (acute renal failure): (2) HTN (hypertension): (3) CHF (congestive heart failure): (4) COPD (chronic obstructive pulmonary disease): (5) Sepsis: (6) Acute hypoxic respiratory failure: Plan Assessment: Pt is a 67 yo male who presented to the hospital on 10/09 from [facility] for respiratory distress and possible sepsis/septic shock, admitted to the ICU for need for pressors and for need for mechanical ventilation due to hypoxemic respiratory failure and septic shock. 24 hour events: Stable overnight, weaned off sedation. CXR this am improved from yesterday. Continuing to do better by the day. Extubated this morning. He has been febrile since 1 am so will repeat UA + cx, blood cultures. May do bronchoscopy. Plan: Neurologic: Triglycerides elevated to 300. Weaned off sedation with ketamine and Versed. Fentanyl weaned off. Cardiac: Hypotension likely related to sedation. Now off of levophed. Also an element of septic shock. Echo from 10/10/2023 with an EF of 65 to 70%. Aortic valve sclerosis noted without significant aortic valvular stenosis. EKG yesterday unremarkable. Respiratory: CT chest from earlier this admission reviewed with evidence of posterior consolidative and atelectatic change. Patient hypoxemic likely from VQ mismatch. CXR today improved compared to yesterday. Bronchoscopy from 10/13/2023 with negative Gram stain and neg culture. Patient with chronic oxygen need of 3 L/min via nasal cannula prior to admission. Gastrointestinal: Continue PPI. Continue bowel regime. Lipase 83. LFTs with mildly elevated AST and alk phosph. Renal/electrolytes: Presented with acute renal failure likely ATN. Creatinine now normal and CPK back to baseline. Continue ICU electrolyte replacement protocol. Given the improvement in renal indices, no additional intervention required currently. Gave lasix yesterday for positive fluid balance, will do another dose today. Genitourinary: Continue Robertson catheter for monitoring intake and output. Endocrine: Glycemic control per protocol Hematologic: Mild anemia. No evidence of blood loss. No indication for transfusion. Continue to follow. Continue Lovenox 40 mg twice daily. Monitor CBC daily. Infectious disease: Suspect lung process but cultures are negative. May be hampered by administration of antibiotics at outside facility. Procalcitonin was significantly elevated but has significantly decreased. White blood cell count slight increase today from yesterday. Vancomycin was restarted given positive MRSA screen and minimal improvement in oxygenation. Continue cefepime. Cultures from bronchoscopy neg. Legionella neg. Integumentary: No issues Lines/access Left IJ cath in place, arterial line, Robertson catheter Thank you for allowing us to participate in your care. Please see attending attestation for additional plan recommendations. Admission and Anticipated Discharge Date Admission Date: October 10, 2023 Supervising Physician Co-Signing Physician Notes Patient seen and examined the resident physician. Agree with the note as above unless of otherwise noted: Patient did well on spontaneous breathing trial and was successfully extubated. Currently requiring 7 L of oxygen via OxyMask with saturations in the low to mid 90s. Received an additional dose of 40 mg of IV Lasix with adequate output of urine. Replacing electrolytes as able. Continue vancomycin Levaquin for total of 10 days. Chest x-ray with notable slight improvement in infiltrates. Precedex has been weaned off. Will need speech therapy consult to evaluate for swallowing mechanism. Mental status appears to be intact. Patient following commands well. Possible downgrade to PCU status later today if he remains stable. Subjective Pt remains intubated this morning but does open his eyes to verbal stimuli and moves his extremities, although appears comfortable today. Review of Systems Review of Systems: Per HPI. Unable to obtain as pt is still intubated. Physical Exam Physical Exam: General: Intubated but does open eyes and look around the room and move extremities, comfortable at this time HEENT: Normocephalic, atraumatic, Resp: On vent, no signs of resp distress at this time, diminished breath sounds with some rhonchi in lung bases improved today compared to yesterday Cardio: Regular rate and rhythm, no murmurs, GI: Some distention noted, bowel sounds hypoactive Skin: Warm, dry, no rashes on visible skin Results & Data Results & Data Vital Signs (Past 12 Hours) Vital Signs Temp Pulse Resp BP Pulse Ox FiO2 10/17/23 06:00 144/67 H 10/17/23 06:00 37.6 C H 62 27 H 94 10/17/23 05:00 137/68 10/17/23 05:00 37.8 C H 63 30 H 95 10/17/23 04:00 148/75 H 10/17/23 04:00 38.1 C H 65 29 H 94 10/17/23 04:00 40 10/17/23 03:26 29 H 40 10/17/23 03:00 38.0 C H 66 29 H 97 10/17/23 03:00 134/83 10/17/23 02:34 38.0 C H 65 27 H 95 10/17/23 02:00 38.2 C H 66 27 H 92 10/17/23 01:30 38.3 C H 68 32 H 91 10/17/23 01:00 146/78 H 10/17/23 01:00 38.6 C H 77 29 H 95 10/17/23 00:30 36.9 C 72 29 H 95 10/17/23 00:00 70 10/17/23 00:00 36.8 C 71 25 H 95 10/17/23 00:00 127/89 10/17/23 00:00 40 10/16/23 23:01 87 36 H 95 40 10/16/23 23:00 139/81 10/16/23 23:00 36.7 C 73 27 H 95 10/16/23 22:00 133/72 10/16/23 22:00 36.7 C 72 28 H 96 10/16/23 21:00 36.9 C 70 22 95 10/16/23 21:00 141/70 H 10/16/23 20:47 37 H 40 10/16/23 20:00 121/75 10/16/23 20:00 36.8 C 96 H 31 H 93 10/16/23 20:00 40 Resident Activity Tracking Resident Involvement: Resident Care Provided Care Provided: Adult Hospital Medicine
[2023-10-17] MEDS: FUROSEMIDE 40 MG/4 ML VIAL IV ONE (07:43)
--- NOTE | 2023-10-17 07:54 | XRay Report ---
XR chest 1V portable HISTORY: eval lung feilds/lines/tubes COMPARISON: Chest 10/16/2023. FINDINGS: Endotracheal tube terminates 3.8 cm from the isidoro. A left jugular central venous catheter terminates at the proximal SVC. Nasogastric tube terminates below the diaphragm. No pneumothorax. Th e heart remains mildly enlarged. Small bilateral pleural effusions and patchy bibasilar densities per sist. There is mild interstitial pulmonary edema again noted. Right hilar enlargement again noted. Th is likely corresponds to the right lung airspace opacity seen on the recent chest CT. IMPRESSION: 1. Satisfactory support line placement. 2. Patchy bibasilar densities and small bilateral pleural effusions persist. 3. Mild pulmonary edema again noted. ACT 112: Negative or not required by law. Electronically signed by: Casimiro Canchola M.D. 10/17/2023 7:52 AM
[2023-10-17] MEDS: VANCOMYCIN LEVEL ONE (08:57)
[2023-10-17] MEDS: VANCOMYCIN HCL 1,250 MG in SODIUM CHLORIDE 0.9% 250 ML IV SCH (08:58)
[2023-10-17 09:28] LABS: Appearance Urine Clear (Clear); Bacteria Urine Automated None Seen (None Seen); Bilirubin Urine Negative (Negative); Blood Urine 1+ (Negative); Cast Urine Automated 0-2 /lpf (0-2); Color Urine Yellow; Epithelial Cell Urine Auto 0-2 /hpf (0-2); Glucose Urine UA Negative (Negative); Ketones Urine Negative (Negative); Leukocyte Esterase Urine Negative (Negative); Nitrite Urine Negative (Negative); Protein Urine Negative (Negative); RBC Urine Automated 0-2 /hpf (0-2); Specific Gravity Urine 1.008 (1.000-1.030); Urobilinogen Urine Negative (Negative); WBC Urine Automated 0-5 /hpf (0-5)
--- NOTE | 2023-10-17 11:11 | Billing Data ---
Date of Service October 17, 2023 CRITICAL CARE TIME - I have personally spent 39 minutes of critical care time in the direct management of this patient. This is a life/limb threatening event. This includes time spent evaluating patient, direct bedside care, chart review, placing orders, interpretation of diagnostic studies, discussion with consultants, patient, and family members, as well as other required patient management activities. This time is exclusive of all separately billable procedures, and teaching time and separate from and in addition to any other critical care service time. Coding Level of Care Code 94567 CRITICAL CARE 1ST 30-74M
[2023-10-17] MEDS: POTASSIUM CHLORIDE / WTR 10 MEQ/100 ML PLCT IV SCH (11:13)
--- NOTE | 2023-10-17 11:58 | Pharmacy Report ---
Pharmacy PK ABX Note - Date of Service October 17, 2023 - Assessment and Plan Assessment 10/15 * WBC down trending. Tmax 38.6 last 24 hrs * No new micro data. Legionella UA negative. * Extubated, pressors weaned off * Renal fxn appears fairly stable, SCr climbing a little however pt is being diuresed with good UOP * Vanco level 24.4 this AM (not a trough) indicates need for change in maint dose (see Plan below) 10/14 * WBC up-trending. Tmax 38.2 last 24 hrs. * No new micro data. Both bronch washings and sputum cx's = no growth. Legionella UA results pending. Patient is now on Levofloxacin initiated by Hospitalist service. Cefepime d/c'd by Configuration Specialist this AM. Per most recent antibiogram, pseudomonas aeruginosa sens ~85% w/ Levofloxacin vs 94% w/ cefepime. No prior h/o pseudomonas infection documented. * Pressors being weaned. * P/F ratio still < 100, paralytics/sedation/vent optimization in progress. * Renal fxn stable, vanco trough level 18.4 this AM (prior doses hung on schedule and level was appropriately timed). 10/13 * Vancomycin discontinued on 10/12, restarted today for minimal improvement, positive MRSA nasal screen. Bronch was pending but now reporting no growth. Renal function has vastly improved, will redose with 1750 mg x 1 then start 1250 mg q8H * 67 year old M with septic shock receiving vancomycin/cefepime empirically for possible lung/urinary source. * Pertinent microbiologic data includes: Positive MRSA Nasal Swab, sputum, urine and blood culture pending. * Scr with significant improvement today, likely 2nd significant UOP * Discussed at multidisciplinary rounds yesterday - plan is to continue vanc for at least 72 hours or as dictated by new culture results/clinical status Plan Vancomycin * Will change maint dose to 1250mg Q 12 hrs based upon most recent data * Predicted to achieve AUC/ANTWAN of 400-600 mg/L.hr with near 100% certainty and lesser risk of nephrotoxicity vs 1750mg Q 12 hr regimen * Will reassess level in 2-3 days if therapy to continue. Pharmacy will continue to follow and will adjust dose/frequency as necessary. Thank you. Pharmacy has transitioned to AUC monitoring for vancomycin. AUC/ANTWAN is the preferred PK/PD target and is associated with decreased risk of nephrotoxicity compared to traditional trough targets.
--- NOTE | 2023-10-17 22:18 | Hospitalist Progress Note ---
Date of Service October 17, 2023 Assessment & Plan (1) Sepsis: Plan: Sepsis, secondary to multifocal pneumonia, suspect gram negative pneumonia history of copd continues with significant leukocytosis Patient is with a severe acute respiratory acidosis and chronic underlying metabolic alkalosis on admission remains on pressors/ norepinephrine vasopressin and phenylephrine have stopped. 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 Plan to extubate later this AM. Update patient seen later in the day very tachypnic, now extubated on oxymask, will keep in ICU> (2) ARF (acute renal failure): Plan: Resolved at this time, hyponatremia is also resolved Rhabdomyolysis is noted (3) HTN (hypertension): Plan: Lisinopril held for renal failure, sepsis, and hypotension requiring pressors initial concern for HF ruled out as echo show preserved EF no RWMA elevated troponin from demand ischemia Plan heparin for DVT prevention Admission and Anticipated Discharge Date Admission Date: October 10, 2023 Subjective Patient intubated. Physical Exam Physical Exam: Patient is intubated and sedated Results & Data Results & Data Vital Signs (Past 12 Hours) Vital Signs Temp Pulse Resp BP Pulse Ox O2 Del Method O2 Flow Rate 10/17/23 22:11 112 H 30 H 96 10/17/23 20:00 Oxymask 5 10/17/23 19:32 36.9 C 10/17/23 18:00 121/75 10/17/23 18:00 37.3 C 119 H 35 H 121/75 93 Oxymask 5 10/17/23 17:00 37.2 C 119 H 30 H 139/74 93 Oxymask 5 10/17/23 16:00 37.4 C 120 H 29 H 133/70 98 10/17/23 15:00 37.3 C 126 H 32 H 145/74 H 94 Oxymask 5 10/17/23 14:00 123/78 10/17/23 14:00 37.2 C 122 H 27 H 123/78 91 Oxymask 5 10/17/23 13:34 119 H 10/17/23 13:00 37.2 C 122 H 27 H 132/84 92 Oxymask 5 10/17/23 12:42 37.2 C 124 H 38 H 131/83 92 10/17/23 12:00 37.1 C 115 H 36 H 136/83 93 Oxymask 7 10/17/23 11:00 37.0 C 103 H 26 H 129/82 94 Oxymask 7 10/17/23 10:30 37.1 C 103 H 22 95 10/17/23 10:28 37.1 C 101 H 24 96 10/17/23 10:28 148/84 H FiO2 10/17/23 22:11 40 10/17/23 20:00 10/17/23 19:32 10/17/23 18:00 10/17/23 18:00 10/17/23 17:00 10/17/23 16:00 10/17/23 15:00 10/17/23 14:00 10/17/23 14:00 10/17/23 13:34 10/17/23 13:00 10/17/23 12:42 10/17/23 12:00 10/17/23 11:00 10/17/23 10:30 10/17/23 10:28 10/17/23 10:28 PG Care Time/CCT Total # of Minutes Spent Total Time Spent with Patient: Total time spent is greater than 50% in coordination of care (as documented) at patient's floor/unit and/or counseling patient: Coding Level of Care Code 65999 SUB INP/OBS CARE 2/35MIN Diagnoses Sepsis A41.9 ARF (acute renal failure) N17.9 HTN (hypertension) I10
[2023-10-18 06:39] LABS: Partial Thromboplastin Time 26 Seconds (21-31)
--- NOTE | 2023-10-18 06:42 | Critical Care Progress Note ---
Date of Service October 18, 2023 Assessment & Plan (1) ARF (acute renal failure): (2) HTN (hypertension): (3) CHF (congestive heart failure): (4) COPD (chronic obstructive pulmonary disease): (5) Sepsis: (6) Acute hypoxic respiratory failure: Plan Assessment: Pt is a 67 yo male who presented to the hospital on 10/09 from [facility] for respiratory distress and possible sepsis/septic shock, admitted to the ICU for need for pressors and for need for mechanical ventilation due to hypoxemic respiratory failure and septic shock. 24 hour events: Stable overnight, extubated yesterday and was on oxymask 5 L during the day and bipap overnight. Now awake and alert. Urine output yesterday after lasix was 4875 mL out for a negative balance yesterday of 3780 mL. Will do small dose of lasix again today. Plan: Neurologic: Triglycerides elevated to 300. Weaned off sedation with ketamine and Versed. Fentanyl weaned off. Cardiac: Hypotension likely related to sedation. Now off of levophed. Also an element of septic shock. Echo from 10/10/2023 with an EF of 65 to 70%. Aortic valve sclerosis noted without significant aortic valvular stenosis. Last EKG unremarkable. Noted to have sinus tachy into the 120s yesterday that is down to 90s overnight and this morning. Respiratory: CT chest from earlier this admission reviewed with evidence of posterior consolidative and atelectatic change. Patient hypoxemic likely from VQ mismatch. CXR today improved compared to yesterday. Bronchoscopy from 10/13/2023 with negative Gram stain and neg culture. Patient with chronic oxygen need of 3 L/min via nasal cannula prior to admission. Gastrointestinal: Continue PPI. Continue bowel regime. Lipase 83. LFTs with mildly elevated AST and alk phosph. Renal/electrolytes: Presented with acute renal failure likely ATN. Creatinine now normal and CPK back to baseline. Continue ICU electrolyte replacement protocol. Given the improvement in renal indices, no additional intervention required currently. Gave lasix x2, last dose yesterday with good urinary output. Genitourinary: Continue Robertson catheter for monitoring intake and output. Endocrine: Glycemic control per protocol Hematologic: Mild anemia. No evidence of blood loss. No indication for transfusion. Continue to follow. Continue Lovenox 40 mg twice daily. Monitor CBC daily. Infectious disease: Suspect lung process but cultures are negative. May be hampered by administration of antibiotics at outside facility. Procalcitonin was significantly elevated but has significantly decreased. White blood cell count slight increase today from yesterday. Vancomycin was restarted given positive MRSA screen and minimal improvement in oxygenation. Continue cefepime. Cultures from bronchoscopy neg. Legionella neg. 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 Repeat UA + cx and bllod cx pending. Integumentary: No issues Lines/access IJ catheter and art lines discontinued. Patient with PIV's. Robertson catheter Stable for downgrade today. Thank you for allowing us to participate in your care. Please see attending attestation for additional plan recommendations. Admission and Anticipated Discharge Date Admission Date: October 10, 2023 Supervising Physician Co-Signing Physician Notes Patient seen examined with the resident physician. Agree with the assessment and plan aside for any additions/exceptions noted: Patient's respiratory status markedly improved. Still remains a bit hypervolemic and will give 20 mg IV Lasix today. Will replace potassium preemptively. Patient alert and oriented x 3. Will initiate speech therapy, PT and OT consults today. Hopefully will be able to start a diet today. Continue antibiotics for 10 days total. Patient chronically on 3 L of oxygen and he is currently at his baseline oxygen requirements. Patient stable for downgrade to PCU status. Subjective Today, pt was seen at bedside and states that he is feeling pretty okay today. Denies chest pain, abdominal pain, or any discomfort anywhere. He states his breathing feels better today. His only complaint today is he just feels very dry and would like to have something to drink. Otherwise, he states he is feeling fine. Review of Systems Review of Systems: As per HPI. Physical Exam Physical Exam: General: On bipap this morning, awake and alert HEENT: Normocephalic, atraumatic, Resp: Diminished breath sounds with scattered rhonchi, which is improved compared to yesterday Cardio: Regular rate and rhythm, no murmurs, GI: Some distention noted, bowel sounds hypoactive Skin: Warm, dry, no rashes on visible skin Results & Data Results & Data Vital Signs (Past 12 Hours) Vital Signs Temp Pulse Resp BP Pulse Ox O2 Del Method O2 Flow Rate 10/18/23 04:05 99 H 32 H 99 10/18/23 04:00 149/84 H 10/18/23 04:00 96 H 29 H 97 10/18/23 03:00 149/79 H 10/18/23 03:00 97 H 35 H 97 10/18/23 02:00 99 H 35 H 98 10/18/23 02:00 145/90 H 10/18/23 01:00 145/84 H 10/18/23 01:00 99 H 34 H 97 10/18/23 00:00 98 H 28 H 96 10/18/23 00:00 119/78 10/17/23 23:59 100 H 10/17/23 23:00 100 H 34 H 96 10/17/23 23:00 138/75 10/17/23 22:11 112 H 30 H 96 10/17/23 22:00 125/76 10/17/23 22:00 111 H 33 H 94 10/17/23 21:00 115 H 27 H 93 10/17/23 21:00 148/84 H 10/17/23 20:00 131/82 10/17/23 20:00 114 H 28 H 94 10/17/23 20:00 Oxymask 5 10/17/23 19:32 36.9 C 10/17/23 19:00 138/72 10/17/23 19:00 114 H 25 H 92 FiO2 10/18/23 04:05 40 10/18/23 04:00 10/18/23 04:00 10/18/23 03:00 10/18/23 03:00 10/18/23 02:00 10/18/23 02:00 10/18/23 01:00 10/18/23 01:00 10/18/23 00:00 10/18/23 00:00 10/17/23 23:59 10/17/23 23:00 10/17/23 23:00 10/17/23 22:11 40 10/17/23 22:00 10/17/23 22:00 10/17/23 21:00 10/17/23 21:00 10/17/23 20:00 10/17/23 20:00 10/17/23 20:00 10/17/23 19:32 10/17/23 19:00 10/17/23 19:00 Resident Activity Tracking Resident Involvement: Resident Care Provided Care Provided: Adult Hospital Medicine
[2023-10-18 07:14] LABS: Hematocrit (blood only) 28.1 % (42.0-52.0); Hemoglobin 8.4 g/dl (14.0-18.0); Mean Corpuscular Hemoglobin 25.2 pg (25.0-34.0); Mean Corpuscular Hgb Conc 29.9 g/dL (32.0-36.0); Mean Corpuscular Volume 84.4 fL (80.0-100.0); Mean Platelet Volume 9.7 fL (9.4-12.4); Platelet Count 267 K/uL (130-400); RDW Coefficient of Variation 15.9 % (11.5-14.5); Red Blood Count 3.33 M/uL (4.70-6.10); White Blood Count 15.33 K/ul (4.8-10.8)
[2023-10-18 07:21] LABS: BUN Creatinine Ratio 35.1 (10-20); Calcium 8.7 mg/dl (8.6-10.3); Est GFR (African American) 109.6 ml/min; Est GFR (Non-African American) 94.6 ml/min; Phosphorus 3.8 mg/dl (2.5-4.9); Potassium 3.8 mmol/L (3.5-5.1)
[2023-10-18 07:50] LABS: Basophils # (auto) 0.06 K/uL (0.00-0.20); Basophils % (auto) 0.4 %; Eosinophils # (auto) 0.23 K/uL (0.00-0.50); Eosinophils % (auto) 1.5 %; Immature Granulocytes # (auto) 1.51 K/uL (0.01-0.20); Immature Granulocytes % (auto) 9.8 %; Lymphocytes # (auto) 1.24 K/uL (1.20-3.40); Lymphocytes % (auto) 8.1 %; Monocytes # (auto) 0.74 K/uL (0.11-0.59); Monocytes % (auto) 4.8 %; Neutrophils # (auto) 11.55 K/uL (1.40-6.50); Neutrophils % (auto) 75.4 %
--- NOTE | 2023-10-18 08:02 | XRay Report ---
XR chest 1V portable HISTORY: Shortness of breath. eval lung feilds/lines/tubes COMPARISON: Chest 10/17/2023. FINDINGS: The lines and tubes seen on the prior study have been removed in the interval. There are lo w lung volumes. No pneumothorax. The heart remains mildly enlarged. There are patchy bibasilar densit ies and small bilateral pleural effusions, unchanged. There is mild pulmonary edema again noted. No a cute fractures. IMPRESSION: 1. The lines and tubes seen on the prior study have been removed in the interval. 2. No change in the pulmonary edema and patchy bibasilar densities. ACT 112: Negative or not required by law. Electronically signed by: Casimiro Canchola M.D. 10/18/2023 8:00 AM
[2023-10-18] MEDS: POTASSIUM CHLORIDE / WTR 10 MEQ/100 ML PLCT IV SCH (09:07)
[2023-10-18] MEDS: FUROSEMIDE INJ 20 MG/2 ML VIAL IV ONE (09:07)
--- NOTE | 2023-10-18 09:34 | Billing Data ---
Date of Service October 18, 2023 Coding Level of Care Code 55253 SUB INP/OBS CARE
--- NOTE | 2023-10-18 21:39 | Hospitalist Progress Note ---
Date of Service October 18, 2023 Assessment & Plan (1) Sepsis: Plan: Sepsis, secondary to multifocal pneumonia, suspect gram negative pneumonia history of copd continues with significant leukocytosis Patient is with a severe acute respiratory acidosis and chronic underlying metabolic alkalosis on admission remains on pressors/ norepinephrine vasopressin and phenylephrine have stopped. Procalcitonin has trended downward Blood cultures, sputum culture negative to date, Respiratory biofire negative, random cortisol appropriate' respiratory culture is negative MRSA nares positive - On cefepime, vancomycin has been discontinued, On levaquin, legionella antigen pending extubated on 10/16 Patient is now a PCU patient though in the same room. Still tachypnic. Agree thayt this is likley an infectious process. continue to monitor. Patient is still very sick. (2) ARF (acute renal failure): Plan: Resolved at this time, hyponatremia is also resolved Rhabdomyolysis is noted (3) HTN (hypertension): Plan: Lisinopril held for renal failure, sepsis, and hypotension requiring pressors initial concern for HF ruled out as echo show preserved EF no RWMA elevated troponin from demand ischemia Plan heparin for DVT prevention Admission and Anticipated Discharge Date Admission Date: October 10, 2023 Subjective Patient is extubatyed. Reports feeling better but not at baseline. Review of Systems Review of Systems: All systems reviewed & are unremarkable except as noted in HPI & below Physical Exam Physical Exam: Patient is lying in bed smiling. Patient is using accessory muscles to breath. Bilateral rhonchi heard. Heart RRR Results & Data Results & Data Vital Signs (Past 12 Hours) Vital Signs Temp Pulse Resp BP Pulse Ox O2 Del Method O2 Flow Rate 10/18/23 20:00 BiPAP 10/18/23 19:39 101 H 39 H 92 10/18/23 19:37 37.1 C 10/18/23 19:00 142/85 H 10/18/23 18:06 106 H 39 H 139/77 89 L 10/18/23 17:42 106 H 23 92 10/18/23 17:00 156/87 H 10/18/23 17:00 98 H 37 H 87 L 10/18/23 16:45 103 H 41 H 89 L 10/18/23 16:06 99 H 34 H 92 10/18/23 16:00 143/84 H 10/18/23 16:00 100 H 10/18/23 15:48 98 H 25 H 92 10/18/23 15:33 99 H 37 H 90 10/18/23 15:00 100 H 36 H 141/91 H Nasal Cannula 4 10/18/23 14:30 95 H 34 H 92 10/18/23 14:06 100 H 39 H 91 10/18/23 14:00 147/81 H 10/18/23 13:57 100 H 39 H 90 10/18/23 13:00 97 H 35 H 84 L 10/18/23 13:00 150/86 H 10/18/23 12:35 98 H 35 H 92 10/18/23 12:16 150/81 H 10/18/23 10:48 105 H 26 H 91 10/18/23 10:28 103 H 31 H 89 L PG Care Time/CCT Total # of Minutes Spent Total Time Spent with Patient: Total time spent is greater than 50% in coordination of care (as documented) at patient's floor/unit and/or counseling patient: Coding Level of Care Code 80325 SUB INP/OBS CARE 3/50MIN Diagnoses Sepsis A41.9 ARF (acute renal failure) N17.9 HTN (hypertension) I10
[2023-10-19 05:29] LABS: Hematocrit (blood only) 30.3 % (42.0-52.0); Hemoglobin 9.2 g/dl (14.0-18.0); Mean Corpuscular Hemoglobin 25.5 pg (25.0-34.0); Mean Corpuscular Hgb Conc 30.4 g/dL (32.0-36.0); Mean Corpuscular Volume 83.9 fL (80.0-100.0); Mean Platelet Volume 9.6 fL (9.4-12.4); Platelet Count 293 K/uL (130-400); RDW Coefficient of Variation 15.8 % (11.5-14.5); RDW Standard Deviation 48.3 fL (36.4-46.3); Red Blood Count 3.61 M/uL (4.70-6.10); White Blood Count 14.74 K/ul (4.8-10.8)
[2023-10-19 05:40] LABS: BUN Creatinine Ratio 31.3 (10-20); C Reactive Protein 9.5 mg/dl (0-0.5); Calcium 8.9 mg/dl (8.6-10.3); Est GFR (African American) 107.9 ml/min; Est GFR (Non-African American) 93.1 ml/min; Phosphorus 3.3 mg/dl (2.5-4.9)
[2023-10-19 05:48] LABS: Partial Thromboplastin Time 27 Seconds (21-31)
[2023-10-19 05:53] LABS: Basophils # (auto) 0.07 K/uL (0.00-0.20); Basophils % (auto) 0.5 %; Eosinophils # (auto) 0.23 K/uL (0.00-0.50); Eosinophils % (auto) 1.6 %; Immature Granulocytes % (auto) 5.4 %; Lymphocytes # (auto) 1.34 K/uL (1.20-3.40); Lymphocytes % (auto) 9.1 %; Monocytes # (auto) 0.76 K/uL (0.11-0.59); Monocytes % (auto) 5.2 %; Neutrophils # (auto) 11.54 K/uL (1.40-6.50); Neutrophils % (auto) 78.2 %
[2023-10-19] MEDS: Nursing to Pharmacy Communication SCH (10:46)
[2023-10-19] MEDS: PANTOprazole 40 MG TAB PO SCH (11:09)
[2023-10-19] MEDS: CEROVITE ADV FORMULA TAB PO SCH (11:09)
--- NOTE | 2023-10-19 20:49 | Hospitalist Progress Note ---
Date of Service October 19, 2023 Assessment & Plan (1) Sepsis: Plan: Sepsis, secondary to multifocal pneumonia, suspect gram negative pneumonia history of copd continues with significant leukocytosis Patient is with a severe acute respiratory acidosis and chronic underlying metabolic alkalosis on admission remains on pressors/ norepinephrine vasopressin and phenylephrine have stopped. Procalcitonin has trended downward Blood cultures, sputum culture negative to date, Respiratory biofire negative, random cortisol appropriate' respiratory culture is negative MRSA nares positive On levaquin,vancomycin legionella antigen pending extubated on 10/16 Patient is now a PCU patient though in the same room. Still tachypnic. Agree that this is likely an infectious process. continue to monitor. Patient vitals still with tachycardia and tachypnea but improving. (2) ARF (acute renal failure): Plan: Resolved at this time, hyponatremia is also resolved Rhabdomyolysis is noted (3) HTN (hypertension): Plan: Lisinopril held for renal failure, sepsis, and hypotension requiring pressors initial concern for HF ruled out as echo show preserved EF no RWMA elevated troponin from demand ischemia Plan heparin for DVT prevention Admission and Anticipated Discharge Date Admission Date: October 10, 2023 Subjective Patient reports breathing slightly better than yesterday. Not quite at baseline. Review of Systems Review of Systems: All systems reviewed & are unremarkable except as noted in HPI & below Physical Exam Physical Exam: Patient is lying in bed smiling. Patient is using accessory muscles to breath. Bilateral rhonchi heard. Heart RRR Results & Data Results & Data Vital Signs (Past 12 Hours) Vital Signs Temp Pulse Resp BP Pulse Ox Pulse Ox Pulse Ox 10/19/23 16:12 104 H 37 H 91 10/19/23 16:00 144/78 H 10/19/23 16:00 109 H 10/19/23 14:41 87 L 94 10/19/23 12:06 109 H 33 H 123/77 89 L 10/19/23 09:03 106 H 38 H 92 10/19/23 09:00 146/71 H 10/19/23 09:00 37.0 C Pulse Ox O2 Del Method O2 Flow Rate O2 Flow Rate O2 Flow Rate O2 Flow Rate 10/19/23 16:12 10/19/23 16:00 10/19/23 16:00 10/19/23 14:41 71 L 4 4 4 10/19/23 12:06 10/19/23 09:03 Nasal Cannula 4 10/19/23 09:00 10/19/23 09:00 PG Care Time/CCT Total # of Minutes Spent Total Time Spent with Patient: Total time spent is greater than 50% in coordination of care (as documented) at patient's floor/unit and/or counseling patient: Coding Level of Care Code 80386 SUB INP/OBS CARE 2/35MIN Diagnoses Sepsis A41.9 ARF (acute renal failure) N17.9 HTN (hypertension) I10
[2023-10-20 05:17] LABS: BUN Creatinine Ratio 27.6 (10-20); C Reactive Protein 7.02 mg/dl (0-0.5); Calcium 8.7 mg/dl (8.6-10.3); Creatinine Clr Calc Pharmacy 119.2 ml/min; Est GFR (African American) 104.2 ml/min; Est GFR (Non-African American) 89.9 ml/min; Phosphorus 3.8 mg/dl (2.5-4.9); Potassium 4.2 mmol/L (3.5-5.1)
[2023-10-20 05:26] LABS: Partial Thromboplastin Ratio 0.9; Partial Thromboplastin Time 24 Seconds (21-31)
--- NOTE | 2023-10-20 10:49 | Pharmacy Report ---
Pharmacy PK ABX Note - Date of Service October 20, 2023 - Assessment and Plan Assessment 10/19: * WBC continues to down trend. Tmax 37.7 last 24 hours. * Cultures with no growth. * Discussed plan for duration with provider yesterday and he wished to continue for now. Current order stop date 10/22. 10/15 * WBC down trending. Tmax 38.6 last 24 hrs * No new micro data. Legionella UA negative. * Extubated, pressors weaned off * Renal fxn appears fairly stable, SCr climbing a little however pt is being diuresed with good UOP * Vanco level 24.4 this AM (not a trough) indicates need for change in maint dose (see Plan below) 10/14 * WBC up-trending. Tmax 38.2 last 24 hrs. * No new micro data. Both bronch washings and sputum cx's = no growth. Legionella UA results pending. Patient is now on Levofloxacin initiated by Hospitalist service. Cefepime d/c'd by [employer] this AM. Per most recent antibiogram, pseudomonas aeruginosa sens ~85% w/ Levofloxacin vs 94% w/ cefepime. No prior h/o pseudomonas infection documented. * Pressors being weaned. * P/F ratio still < 100, paralytics/sedation/vent optimization in progress. * Renal fxn stable, vanco trough level 18.4 this AM (prior doses hung on schedule and level was appropriately timed). 10/13 * Vancomycin discontinued on 10/12, restarted today for minimal improvement, positive MRSA nasal screen. Bronch was pending but now reporting no growth. Renal function has vastly improved, will redose with 1750 mg x 1 then start 1250 mg q8H * 67 year old M with septic shock receiving vancomycin/cefepime empirically for possible lung/urinary source. * Pertinent microbiologic data includes: Positive MRSA Nasal Swab, sputum, urine and blood culture pending. * Scr with significant improvement today, likely 2nd significant UOP * Discussed at multidisciplinary rounds yesterday - plan is to continue vanc for at least 72 hours or as dictated by new culture results/clinical status Plan Vancomycin * Current regimen: 1250 mg IV every 12 hours * Random level obtained 10/20/23 resulted as 20.8 mcg/mL. This is predicted to achieve target AUC/ANTWAN of 400-600 mg/L.hr * Predicted AUC at steady state: 504 mg/L.hr * Continue current dose * Will repeat level in the next 48-72 hours if therapy is continued and/or change in patient clinical status Pharmacy will continue to follow and will adjust dose/frequency as necessary. Thank you. Pharmacy has transitioned to AUC monitoring for vancomycin. AUC/ANTWAN is the preferred PK/PD target and is associated with decreased risk of nephrotoxicity compared to traditional trough targets.
--- NOTE | 2023-10-20 12:21 | Critical Care Progress Note ---
Date of Service October 20, 2023 Assessment & Plan (1) ARF (acute renal failure): (2) HTN (hypertension): (3) CHF (congestive heart failure): (4) COPD (chronic obstructive pulmonary disease): (5) Sepsis: (6) Acute hypoxic respiratory failure: Plan Assessment: Pt is a 67 yo male who presented to the hospital on 10/09 from [facility] for respiratory distress and possible sepsis/septic shock, admitted to the ICU for need for pressors and for need for mechanical ventilation due to hypoxemic respiratory failure and septic shock. 24 hour events: Stable overnight, extubated yesterday and was on oxymask 5 L during the day and bipap overnight. Now awake and alert. Urine output yesterday after lasix was 4875 mL out for a negative balance yesterday of 3780 mL. Will do small dose of lasix again today. Plan: Neurologic: Triglycerides elevated to 300. Weaned off sedation with ketamine and Versed. Fentanyl weaned off. Cardiac: Hypotension likely related to sedation. Now off of levophed. Also an element of septic shock. Echo from 10/10/2023 with an EF of 65 to 70%. Aortic valve sclerosis noted without significant aortic valvular stenosis. Last EKG unremarkable. Noted to have sinus tachy into the 120s yesterday that is down to 90s overnight and this morning. Respiratory: CT chest from earlier this admission reviewed with evidence of posterior consolidative and atelectatic change. Patient hypoxemic likely from VQ mismatch. CXR today improved compared to yesterday. Bronchoscopy from 10/13/2023 with negative Gram stain and neg culture. Patient with chronic oxygen need of 3 L/min via nasal cannula prior to admission. Gastrointestinal: Continue PPI. Continue bowel regime. Lipase 83. LFTs with mildly elevated AST and alk phosph. Renal/electrolytes: Presented with acute renal failure likely ATN. Creatinine now normal and CPK back to baseline. Continue ICU electrolyte replacement protocol. Given the improvement in renal indices, no additional intervention required currently. Gave lasix x2, last dose yesterday with good urinary output. Genitourinary: Continue Robertson catheter for monitoring intake and output. Endocrine: Glycemic control per protocol Hematologic: Mild anemia. No evidence of blood loss. No indication for transfusion. Continue to follow. Continue Lovenox 40 mg twice daily. Monitor CBC daily. Infectious disease: Suspect lung process but cultures are negative. May be hampered by administration of antibiotics at outside facility. Procalcitonin was significantly elevated but has significantly decreased. White blood cell count slight increase today from yesterday. Vancomycin was restarted given positive MRSA screen and minimal improvement in oxygenation. Continue cefepime. Cultures from bronchoscopy neg. Legionella neg. 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 Repeat UA + cx and bllod cx pending. Integumentary: No issues Lines/access IJ catheter and art lines discontinued. Patient with PIV's. Robertson catheter Stable for downgrade today. Thank you for allowing us to participate in your care. Please see attending attestation for additional plan recommendations. Admission and Anticipated Discharge Date Admission Date: October 10, 2023 Review of Systems Review of Systems: All systems reviewed & are unremarkable except as noted in Subjective Physical Exam Physical Exam: Constitutional: No acute distress HEENT: EOMI, PERRLA Respiratory system: Decreased air entry bilaterally, no wheeze, rhonchi, positive crackles bilaterally CVS: S1-S2 positive, no murmurs or gallops Abdomen: Soft, nontender, nondistended, positive bowel sounds x4 Extremities: +2 pulses bilaterally radialis/ dorsalis pedis, no cyanosis, +2 pitting edema bilateral lower extremity Neuro: Awake alert oriented to self and place Psych: Flat mood and affect G/U: Positive Robertson Skin: no rashes, warm and dry Lymphatic: no cervical or axillary lymphadenopathy Results & Data Results & Data Vital Signs (Past 12 Hours) Vital Signs Temp Pulse Pulse Resp BP BP Pulse Ox 10/20/23 12:00 37.0 C 10/20/23 12:00 104 H 17 149/70 H 94 10/20/23 08:00 36.8 C 10/20/23 08:00 106 H 30 H 116/70 91 10/20/23 07:30 10/20/23 04:13 36.8 C 100 H 25 H 146/80 H 94 10/20/23 02:17 88 30 H 99 10/20/23 01:25 O2 Del Method O2 Flow Rate FiO2 10/20/23 12:00 10/20/23 12:00 Nasal Cannula 5 10/20/23 08:00 10/20/23 08:00 Nasal Cannula 4 10/20/23 07:30 Nasal Cannula 4 10/20/23 04:13 Nasal Cannula 4 10/20/23 02:17 40 10/20/23 01:25 BiPAP 40 Coding Diagnoses ARF (acute renal failure) N17.9 HTN (hypertension) I10 CHF (congestive heart failure) I50.9 COPD (chronic obstructive pulmonary disease) J44.9 Sepsis A41.9 Acute hypoxic respiratory failure J96.01
--- NOTE | 2023-10-20 19:17 | Hospitalist Progress Note ---
Date of Service October 20, 2023 Assessment & Plan (1) Sepsis: Plan: Sepsis, secondary to multifocal pneumonia, suspect gram negative pneumonia history of copd continues with significant leukocytosis Patient is with a severe acute respiratory acidosis and chronic underlying metabolic alkalosis on admission remains on pressors/ norepinephrine vasopressin and phenylephrine have stopped. Procalcitonin has trended downward Blood cultures, sputum culture negative to date, Respiratory biofire negative, random cortisol appropriate' respiratory culture is negative MRSA nares positive On levaquin,vancomycin legionella antigen pending extubated on 10/16 Patient is now a PCU patient though in the same room. Still tachypnic. Agree that this is likely an infectious process. continue to monitor. Patient vitals still with tachycardia and tachypnea but improving. WBC also down trending will reorder on 10/20 Ordered flutter valve (2) ARF (acute renal failure): Plan: Resolved at this time, hyponatremia is also resolved Rhabdomyolysis is noted (3) HTN (hypertension): Plan: Lisinopril held for renal failure, sepsis, and hypotension requiring pressors initial concern for HF ruled out as echo show preserved EF no RWMA elevated troponin from demand ischemia Plan heparin for DVT prevention Admission and Anticipated Discharge Date Admission Date: October 10, 2023 Subjective 67 yo male reports breathing slightly better. Review of Systems Review of Systems: All systems reviewed & are unremarkable except as noted in HPI & below Physical Exam Physical Exam: Patient is lying in bed smiling. Patient is using accessory muscles to breath. Bilateral rhonchi heard. Heart RRR Results & Data Results & Data Vital Signs (Past 12 Hours) Vital Signs Temp Pulse Pulse Resp BP BP BP 10/20/23 16:00 104 H 10/20/23 15:32 37.0 C 102 H 45 H 140/76 10/20/23 14:00 37.4 C 101 H 26 H 137/78 10/20/23 14:00 10/20/23 12:00 37.0 C 10/20/23 12:00 104 H 17 149/70 H 10/20/23 08:00 36.8 C 10/20/23 08:00 106 H 30 H 116/70 10/20/23 07:30 Pulse Ox O2 Del Method O2 Flow Rate 10/20/23 16:00 10/20/23 15:32 92 Nasal Cannula 4 10/20/23 14:00 94 Oxymask 5 10/20/23 14:00 Nasal Cannula 5 10/20/23 12:00 10/20/23 12:00 94 Nasal Cannula 5 10/20/23 08:00 10/20/23 08:00 91 Nasal Cannula 4 10/20/23 07:30 Nasal Cannula 4 PG Care Time/CCT Total # of Minutes Spent Total Time Spent with Patient: Total time spent is greater than 50% in coordination of care (as documented) at patient's floor/unit and/or counseling patient: Coding Level of Care Code 37067 SUB INP/OBS CARE 3/50MIN Diagnoses Sepsis A41.9 ARF (acute renal failure) N17.9 HTN (hypertension) I10
[2023-10-20] MEDS: FUROSEMIDE INJ 20 MG/2 ML VIAL IV ONE (19:50)
[2023-10-21 06:43] LABS: Basophils # (auto) 0.07 K/uL (0.00-0.20); Basophils % (auto) 0.6 %; Eosinophils # (auto) 0.19 K/uL (0.00-0.50); Eosinophils % (auto) 1.6 %; Hemoglobin 9.2 g/dl (14.0-18.0); Immature Granulocytes # (auto) 0.17 K/uL (0.01-0.20); Immature Granulocytes % (auto) 1.4 %; Lymphocytes # (auto) 1.02 K/uL (1.20-3.40); Lymphocytes % (auto) 8.5 %; Mean Corpuscular Hemoglobin 25.2 pg (25.0-34.0); Mean Corpuscular Hgb Conc 29.7 g/dL (32.0-36.0); Mean Corpuscular Volume 84.9 fL (80.0-100.0); Mean Platelet Volume 9.4 fL (9.4-12.4); Monocytes # (auto) 0.64 K/uL (0.11-0.59); Monocytes % (auto) 5.3 %; Neutrophils # (auto) 9.93 K/uL (1.40-6.50); Neutrophils % (auto) 82.6 %; Platelet Count 250 K/uL (130-400); RDW Coefficient of Variation 15.6 % (11.5-14.5); RDW Standard Deviation 47.7 fL (36.4-46.3); Red Blood Count 3.65 M/uL (4.70-6.10); White Blood Count 12.02 K/ul (4.8-10.8)
[2023-10-21 07:08] LABS: Albumin Level 2.7 gm/dl (3.4-5.0); BUN Creatinine Ratio 27.8 (10-20); Bilirubin Direct 0.3 mg/dl (0-0.2); Bilirubin,Total 0.7 mg/dl (0.2-1.0); C Reactive Protein 6.99 mg/dl (0-0.5); Calcium 8.8 mg/dl (8.6-10.3); Creatinine Clr Calc Pharmacy 112.3 ml/min; Est GFR (African American) 102.8 ml/min; Est GFR (Non-African American) 88.7 ml/min; Potassium 4.1 mmol/L (3.5-5.1); Total Protein 6.2 gm/dl (6.0-8.3)
[2023-10-21 07:18] LABS: Base Excess VBG 6.8 mEq/L; HCO3 VBG 36 mmol/L; Oxygen Saturation VBG 67.3 %; PCO2 VBG 71 mmHg (38-50); PO2 VBG 39 mmHg; pH VBG 7.31 (7.36-7.41)
[2023-10-21 07:18] LABS: Partial Thromboplastin Ratio 0.9; Partial Thromboplastin Time 25 Seconds (21-31)
--- NOTE | 2023-10-21 08:05 | XRay Report ---
XR chest 1V portable HISTORY: 67 years-old Male sob acute shortness of breath COMPARISON: 10/18/2023 TECHNIQUE: AP view of the chest FINDINGS: Cardiac silhouette is enlarged. Mixed interstitial and alveolar opacities are redemonstrated, mildly improved from prior. Small pleural effusions. No pneumothorax. The patient is mildly rotated toward t he left. Bones appear grossly intact. IMPRESSION: 1. Cardiomegaly with mildly improved mixed interstitial and alveolar opacities suggestive of resolvin g pulmonary edema. 2. Small pleural effusions with persistent bibasilar densities. ACT 112: Negative or not required by law. The above report was generated using voice recognition software. It may contain grammatical, syntax o r spelling errors. Electronically signed by: Kaleb Douglass M.D. 10/21/2023 8:03 AM
[2023-10-21] MEDS: FUROSEMIDE 40 MG/4 ML VIAL IV ONE (11:17)
--- NOTE | 2023-10-21 11:23 | Pulmonology Progress Note ---
Date of Service October 21, 2023 Assessment & Plan (1) ARF (acute renal failure): (2) HTN (hypertension): (3) CHF (congestive heart failure): (4) COPD (chronic obstructive pulmonary disease): (5) Sepsis: (6) Acute hypoxic respiratory failure: Plan IMPRESSION: 67-year-old male who was admitted in the setting of severe sepsis with septic shock from possible pulmonary source requiring prolonged intubation with concerns for ARDS who was noted to develop worsening tachypnea and increasing FiO2 requirement. RECOMMENDATIONS: 1. Respiratory distress with hypoxia and hypercapnia - Patient with a history of COPD and upon presentation on 10/09 was also noted to be retaining at that time prior to intubation. Morning VBG just shows mild acidosis with hypercapnia. At some point, patient was complaining of worsening hypoxia. Chest x-ray shows pulmonary edema. He is to receive 40 mg of IV Lasix. BiPAP in place, however we will change to a formal machine rather than the bedside device. Will obtain ABG after initiating BiPAP therapy. High risk for need for reintubation. Patient is weak and this is likely contributing to his shallow respirations and retention. 2. CHF - Recommend close monitoring of I's and O's and likely require a second dose of IV Lasix later this evening. Would recommend BiPAP with any sleep. Patient diuresed greater than 1.5 L with 1 dose of 40 mg IV Lasix. BiPAP was applied and patient was titrated to appropriate settings for meeting his volume requirements. Upon reevaluation, the patient appears much better clinically and is much more communicative. He should use his BiPAP for all sleep. He would benefit from at least daily doses of Lasix and may benefit from additional dose if his symptoms change or worsen today. 3. COPD - Previously diagnosed at an outside facility. On Trelegy Ellipta at home. Can add back the equivalent while in the hospital. He is not bronchospastic at this time, however a COPD exacerbation this patient would certainly be hard on the patient. 4. Sepsis - Continue with guided antibiotic therapy as you have been. Thank you for allowing us to participate in the care of this pleasant patient. Pulmonary medicine will continue to follow. Admission and Anticipated Discharge Date Admission Date: October 10, 2023 Supervising Physician Co-Signing Physician Notes I saw and evaluated the patient with Rachid Kim PA-C, and agree with findings and plan as documented in the note. 67-year-old male who was admitted to the hospital for right lower lobe pneumonia requiring intubation. He was recently downgraded on 10/18/2023. Pulmonary consulted today as he was complaining of worsening shortness of breath. Chest x-ray from today showed worsening pulmonary vascular congestion. 40 mg of Lasix was ordered to be given to the patient and he was started on BiPAP. The time of examination patient was on BiPAP 18/8, getting tidal volumes of 700. I went down to 16/8. He said he is feeling much better compared to in the morning. His respiratory rate was in the high teens. Denies any chest pain, no headache, no nausea, no vomiting. Has been afebrile Constitutional: No acute distress HEENT: EOMI, PERRLA Respiratory system: Decreased air entry bilaterally, no wheeze, rhonchi, positive crackles bilaterally, right> left CVS: S1-S2 positive, no murmurs or gallops Abdomen: Soft, nontender, nondistended, positive bowel sounds x4, obese Extremities: +2 pulses bilaterally radialis/ dorsalis pedis, no cyanosis, +1 pitting edema bilateral lower extremity Neuro: Awake alert oriented x3 Psych: Normal mood and affect G/U: Positive Robertson Plan: ABG 7.40/62/58 on 5 L Strict in and out, keep the patient negative balance Complete the course of antibiotic BiPAP nightly and as needed shortness of breath Case was discussed with RN at bedside Please note the above document was generated using voice recognition software. It may contain grammatical, syntax or spelling errors.Any formal questions or concerns about the content, text or information contained within the body of this dictation should be directly addressed to the provider for clarification. Subjective Patient seen and evaluated at bedside. He is having increasing respiratory distress. He is tachypneic and currently on BiPAP. He reports feeling generally weak. No cough, chest pain, palpitations, hemoptysis, or pleuritic pain appreciated. Review of Systems 2 Review of Systems: As per subjective. Physical Exam 2 Physical Exam: VITAL SIGNS - Vital signs and nursing notes were reviewed. GENERAL - 67-year-old male appearing his stated age who is in moderate respiratory distress. LUNGS - Auscultation reveals diminished breath sounds with slight crackles appreciated. CARDIAC - RRR with S1/S2. No murmur, rubs, or gallops appreciated. EXTREMITIES - Nail clubbing not present. No peripheral cyanosis. Moderate bilateral pretibial edema present. +3/5 radial palpated throughout. PSYCH - A&Ox3 and cooperates fully with examiner. Pt is very pleasant and interacts well with examiner. Results & Data Results & Data Vital Signs (Past 12 Hours) Vital Signs Temp Pulse Pulse Resp BP BP Pulse Ox 10/21/23 11:00 37.1 C 106 H 45 H 130/72 82 L 10/21/23 08:00 102 H 10/21/23 08:00 10/21/23 07:36 36.9 C 106 H 30 H 138/64 90 10/21/23 03:12 37.0 C 99 H 20 138/82 92 10/21/23 01:27 100 H 32 H 95 10/21/23 00:00 10/21/23 00:00 93 H 10/20/23 23:58 36.9 C 98 H 20 131/76 94 O2 Del Method O2 Flow Rate 10/21/23 11:00 Nasal Cannula 5 10/21/23 08:00 10/21/23 08:00 Nasal Cannula 5 10/21/23 07:36 Nasal Cannula 5 10/21/23 03:12 Nasal Cannula 4 10/21/23 01:27 4 10/21/23 00:00 Nasal Cannula 5 10/21/23 00:00 10/20/23 23:58 Nasal Cannula 4 Laboratory Results 10/21/23 06:25 10/21/23 06:25 PG Care Time/CCT Total # of Minutes Spent Total Time Spent with Patient: Total time spent is greater than 50% in coordination of care (as documented) at patient's floor/unit and/or counseling patient: Coding Level of Care Code 43382 SUB INP/OBS CARE 3/50MIN Diagnoses ARF (acute renal failure) N17.9 HTN (hypertension) I10 CHF (congestive heart failure) I50.9 COPD (chronic obstructive pulmonary disease) J44.9 Sepsis A41.9 Acute hypoxic respiratory failure J96.01
[2023-10-21 15:39] LABS: HCO3 ABG 38 mmol/L (19-24); Oxygen Saturation ABG 91.1 % (90-95); PCO2 ABG 62 mmHg (35-46); PO2 ABG 58 mmHg (80-95)
[2023-10-21 15:41] LABS: Allen Test Pos (Pos)
--- NOTE | 2023-10-21 20:17 | Hospitalist Progress Note ---
Date of Service October 21, 2023 Assessment & Plan (1) Sepsis: Plan: Sepsis, secondary to multifocal pneumonia, suspect gram negative pneumonia history of copd with CHF. Acute diastolic heart failure. continues with significant leukocytosis Patient is with a severe acute respiratory acidosis and chronic underlying metabolic alkalosis on admission Required intubation. Initially required pressors/ norepinephrine vasopressin and phenylephrine These have been stopped. Procalcitonin has trended downward Extubated on 10/16 Blood cultures, sputum culture negative to date, Respiratory biofire negative, random cortisol appropriate' respiratory culture is negative MRSA nares positive On levaquin,vancomycin legionella antigen pending Patient is now improving with diuresis. (2) ARF (acute renal failure): Plan: Resolved at this time, hyponatremia is also resolved Rhabdomyolysis is noted (3) HTN (hypertension): Plan: Lisinopril held for renal failure, sepsis, and hypotension requiring pressors initial concern for HF ruled out as echo show preserved EF no RWMA elevated troponin from demand ischemia Plan heparin for DVT prevention Admission and Anticipated Discharge Date Admission Date: October 10, 2023 Subjective 67 yo male reports having SOB this AM. When seen in the afternoon, patient states he is breathing much better now. Review of Systems Review of Systems: All systems reviewed & are unremarkable except as noted in HPI & below Physical Exam Physical Exam: Patient is lying in bed. Comfortable on nasal cannula No longer using accesory muscles to breath. improved lung sounds, less rhonchi and wheezing. Heart RRR Results & Data Results & Data Vital Signs (Past 12 Hours) Vital Signs Temp Pulse Pulse Resp BP Pulse Ox O2 Del Method 10/21/23 19:41 37.1 C 94 H 22 137/61 92 Nasal Cannula 10/21/23 16:00 95 Nasal Cannula 10/21/23 16:00 102 H 10/21/23 14:51 37.5 C 100 H 35 H 134/68 95 BiPAP 10/21/23 14:36 111 H 26 H 94 10/21/23 11:27 111 H 23 100 10/21/23 11:00 37.1 C 106 H 45 H 130/72 82 L Nasal Cannula O2 Flow Rate FiO2 10/21/23 19:41 6 10/21/23 16:00 6 10/21/23 16:00 10/21/23 14:51 10/21/23 14:36 35 06/03/24 11:27 60 10/21/23 11:00 5 PG Care Time/CCT Total # of Minutes Spent Total Time Spent with Patient: Total time spent is greater than 50% in coordination of care (as documented) at patient's floor/unit and/or counseling patient: Coding Level of Care Code 03753 SUB INP/OBS CARE 2/35MIN Diagnoses Sepsis A41.9 ARF (acute renal failure) N17.9 HTN (hypertension) I10
[2023-10-21] MEDS: INSULIN ASPART PER UNIT CHARGE SC SCH (20:22)
[2023-10-22 06:14] LABS: Basophils # (auto) 0.05 K/uL (0.00-0.20); Basophils % (auto) 0.5 %; Eosinophils # (auto) 0.15 K/uL (0.00-0.50); Eosinophils % (auto) 1.5 %; Hematocrit (blood only) 28.1 % (42.0-52.0); Hemoglobin 8.3 g/dl (14.0-18.0); Immature Granulocytes # (auto) 0.09 K/uL (0.01-0.20); Immature Granulocytes % (auto) 0.9 %; Lymphocytes % (auto) 9.1 %; Mean Corpuscular Hemoglobin 25.1 pg (25.0-34.0); Mean Corpuscular Hgb Conc 29.5 g/dL (32.0-36.0); Mean Corpuscular Volume 84.9 fL (80.0-100.0); Mean Platelet Volume 8.9 fL (9.4-12.4); Monocytes # (auto) 0.53 K/uL (0.11-0.59); Monocytes % (auto) 5.4 %; Neutrophils # (auto) 8.14 K/uL (1.40-6.50); Neutrophils % (auto) 82.6 %; Platelet Count 219 K/uL (130-400); RDW Coefficient of Variation 15.4 % (11.5-14.5); RDW Standard Deviation 47.8 fL (36.4-46.3); Red Blood Count 3.31 M/uL (4.70-6.10); White Blood Count 9.86 K/ul (4.8-10.8)
[2023-10-22 06:29] LABS: Albumin Globulin Ratio 0.8 (0.9-2); Albumin Level 2.7 gm/dl (3.4-5.0); BUN Creatinine Ratio 24.3 (10-20); Bilirubin,Total 0.7 mg/dl (0.2-1.0); Calcium 9.1 mg/dl (8.6-10.3); Creatinine Clr Calc Pharmacy 97.7 ml/min; Est GFR (African American) 87.3 ml/min; Est GFR (Non-African American) 75.3 ml/min; Globulin 3.5 gm/dl (2.5-4.0); Potassium 3.9 mmol/L (3.5-5.1); Total Protein 6.2 gm/dl (6.0-8.3)
[2023-10-22 06:39] LABS: Partial Thromboplastin Time 27 Seconds (21-31)
[2023-10-22] MEDS ORDERED: VANCOMYCIN LEVEL ONE (07:00)
--- NOTE | 2023-10-22 09:22 | Hospitalist Progress Note ---
Date of Service October 22, 2023 Assessment & Plan (1) Sepsis: Plan: Sepsis, secondary to multifocal pneumonia, suspect gram negative pneumonia history of copd with CHF. Acute diastolic heart failure. Patient is with a severe acute respiratory acidosis and Required intubation. Initially required pressors/ norepinephrine vasopressin and phenylephrine Extubated on 10/16 Blood cultures, sputum culture negative to date, Respiratory biofire negative, random cortisol appropriate' respiratory culture is negative MRSA nares positive On levaquin,vancomycin- legionella antigen negative Patient is now improving with diuresis. (2) ARF (acute renal failure): Plan: Resolved at this time, hyponatremia is also resolved Rhabdomyolysis improved (3) HTN (hypertension): Plan: Lisinopril held for renal failure, sepsis, and hypotension requiring pressors initial concern for systolic HF ruled out as echo show preserved EF no RWMA now concern for acute diastolic heart failure, on lasix elevated troponin from demand ischemia Plan Lovenox for DVT prevention Admission and Anticipated Discharge Date Admission Date: October 10, 2023 Subjective Patient was with complaints of feeling weak but improved since yesterday. He also says that his shortness of breath is improving. He has not yet gotten out of bed. He has had advancement of diet by speech therapy. Physical Exam Physical Exam: Awake and alert. He has an eschar on his left cheek. Lungs are with lateral dullness at the bases and rhonchi above Card exam is regular Results & Data Results & Data Vital Signs (Past 12 Hours) Vital Signs Temp Pulse Pulse Resp BP BP Pulse Ox 10/22/23 07:21 98.6 F 94 H 26 H 143/79 H 96 10/22/23 03:35 92 H 17 98 10/22/23 03:23 98.1 F 98 H 20 124/76 93 10/21/23 22:31 98.6 F 95 H 20 134/78 94 10/21/23 22:25 97 H 27 H 95 10/21/23 22:03 93 H O2 Del Method O2 Flow Rate FiO2 10/22/23 07:21 BiPAP 10/22/23 03:35 35 10/22/23 03:23 Nasal Cannula 5 10/21/23 22:31 BiPAP 10/21/23 22:25 35 10/21/23 22:03 Laboratory Results Reviewed CBC reviewed chemistry Reviewed and no vancomycin level PG Care Time/CCT Total # of Minutes Spent Total Time Spent with Patient: Total time spent is greater than 50% in coordination of care (as documented) at patient's floor/unit and/or counseling patient: Coding Level of Care Code 09951 SUB INP/OBS CARE 2/35MIN Diagnoses Sepsis A41.9 ARF (acute renal failure) N17.9 HTN (hypertension) I10
[2023-10-22] MEDS: FUROSEMIDE 40 MG TAB PO SCH (09:40)
[2023-10-22] MEDS: LIDOCAINE 1% LOCAL 20 ML VIAL ONE (10:45)
[2023-10-22] MEDS: VANCOMYCIN LEVEL ONE (10:53)
--- NOTE | 2023-10-22 11:05 | Pulmonology Progress Note ---
Date of Service October 22, 2023 Assessment & Plan (1) ARF (acute renal failure): (2) HTN (hypertension): (3) CHF (congestive heart failure): (4) COPD (chronic obstructive pulmonary disease): (5) Sepsis: (6) Acute hypoxic respiratory failure: Plan IMPRESSION: 67-year-old male who was admitted in the setting of severe sepsis with septic shock from possible pulmonary source requiring prolonged intubation with concerns for ARDS who was noted to develop worsening tachypnea and increasing FiO2 requirement. RECOMMENDATIONS: 1. Respiratory distress with hypoxia and hypercapnia -improved today. The patient wears BiPAP overnight which has seemed to be a difference maker in addition to offloading excess volume. Saturating well on 3 L nasal cannula at this time. Continue with offloading volume and BiPAP with any sleep/naps. 2. CHF - Recommend close monitoring of I's and O's. Continue with daily Lasix dosing. Would recommend BiPAP with any sleep. Patient looks much better today. He still has a ways to go from his volume status, but his respiratory status certainly has improved. 3. COPD - Previously diagnosed at an outside facility. On Trelegy Ellipta at home. Can add back the equivalent while in the hospital. He is not bronchospastic at this time, however a COPD exacerbation this patient would certainly be hard on the patient. 4. Sepsis - Continue with guided antibiotic therapy as you have been. Thank you for allowing us to participate in the care of this pleasant patient. Pulmonary medicine will continue to follow. Admission and Anticipated Discharge Date Admission Date: October 10, 2023 Supervising Physician Co-Signing Physician Notes I saw and evaluated the patient with Rachid Kim PA-C, and agree with findings and plan as documented in the note. Patient seen and examined at bedside. No acute distress, no adverse events overnight He says he is feeling much better compared to when I saw him yesterday He is diuresing well. Did use his BiPAP overnight and is willing to use it even at home. Denies any chest pain, no headache, no nausea, no vomiting Fair appetite Constitutional: No acute distress HEENT: EOMI, PERRLA Respiratory system: Decreased air entry bilaterally, no wheeze, rhonchi, positive crackles bilaterally, right> left CVS: S1-S2 positive, no murmurs or gallops Abdomen: Soft, nontender, nondistended, positive bowel sounds x4, obese Extremities: +2 pulses bilaterally radialis/ dorsalis pedis, no cyanosis, +1 pitting edema bilateral lower extremity Neuro: Awake alert oriented x3 Psych: Normal mood and affect G/U: Positive Robertson Plan: In/out: -3.1 L, urine output 6651 ABG 7.40/62/58 on 5 L Continue with diuretics to keep the patient negative balance Complete the course of antibiotic BiPAP nightly and as needed shortness of breath Patient's significant morbid obesity has resulted in a restrictive thoracic cage abnormality. Because of this patient does not fully expand her lungs for proper ventilation causing recurrent hypercapnic respiratory failure with a PaCo2 of 62. Multiple underlying comorbidities are noted with a weight of 131 kgs. Patient would benefit greatly from noninvasive ventilation which would improve lung function and potentially reduce worsening of symptoms. A BiPAP would be ineffective as patient requires a volume targeted mode. Interruption of ventilator support would lead to a decline of health status. NIMV settings should be AVAPS-AE; Breath rate: auto; Inspiratory time:auto; Sigh: off; Tidal Volume: 350-450, PS min: 4-10 PS max: 12-20; EPAP min: 6-10; EPAP max: 10-16; AVAPS rate: 14 during sleep and as needed Please note the above document was generated using voice recognition software. It may contain grammatical, syntax or spelling errors.Any formal questions or concerns about the content, text or information contained within the body of this dictation should be directly addressed to the provider for clarification. Subjective Patient seen and evaluated at bedside this morning. He is feeling much better today he tolerated his BiPAP well last night. Review of Systems 2 Review of Systems: As per subjective. Physical Exam 2 Physical Exam: VITAL SIGNS - Vital signs and nursing notes were reviewed. GENERAL - 67-year-old male appearing his stated age who is in no distress. LUNGS - Auscultation reveals diminished breath sounds with slight crackles appreciated. CARDIAC - RRR with S1/S2. No murmur, rubs, or gallops appreciated. EXTREMITIES - Nail clubbing not present. No peripheral cyanosis. Moderate bilateral pretibial edema present. +3/5 radial palpated throughout. PSYCH - A&Ox3 and cooperates fully with examiner. Pt is very pleasant and interacts well with examiner. Results & Data Results & Data Vital Signs (Past 12 Hours) Vital Signs Temp Pulse Pulse Resp BP BP Pulse Ox 10/22/23 07:21 37.0 C 94 H 26 H 143/79 H 96 10/22/23 03:35 92 H 17 98 10/22/23 03:23 36.7 C 98 H 20 124/76 93 O2 Del Method O2 Flow Rate FiO2 10/22/23 07:21 BiPAP 10/22/23 03:35 35 10/22/23 03:23 Nasal Cannula 5 Laboratory Results 10/22/23 05:50 10/22/23 05:50 PG Care Time/CCT Total # of Minutes Spent Total Time Spent with Patient: Total time spent is greater than 50% in coordination of care (as documented) at patient's floor/unit and/or counseling patient: Coding Level of Care Code 17315 SUB INP/OBS CARE 3/50MIN Diagnoses ARF (acute renal failure) N17.9 HTN (hypertension) I10 CHF (congestive heart failure) I50.9 COPD (chronic obstructive pulmonary disease) J44.9 Sepsis A41.9 Acute hypoxic respiratory failure J96.01
--- NOTE | 2023-10-22 13:40 | Pharmacy Report ---
Pharmacy PK ABX Note - Date of Service October 22, 2023 - Assessment and Plan Assessment 10/21 * New level obtained 20.3 mcg/mL, slight bump in SCr predicts AUC/ANTWAN slightly above target * Will reduce to 1000 mg q12H to complete current course 10/19: * WBC continues to down trend. Tmax 37.7 last 24 hours. * Cultures with no growth. * Discussed plan for duration with provider yesterday and he wished to continue for now. Current order stop date 10/22. 10/15 * WBC down trending. Tmax 38.6 last 24 hrs * No new micro data. Legionella UA negative. * Extubated, pressors weaned off * Renal fxn appears fairly stable, SCr climbing a little however pt is being diuresed with good UOP * Vanco level 24.4 this AM (not a trough) indicates need for change in maint dose (see Plan below) 10/14 * WBC up-trending. Tmax 38.2 last 24 hrs. * No new micro data. Both bronch washings and sputum cx's = no growth. Legionella UA results pending. Patient is now on Levofloxacin initiated by Hospitalist service. Cefepime d/c'd by Capsule Filling Machine Operator this AM. Per most recent antibiogram, pseudomonas aeruginosa sens ~85% w/ Levofloxacin vs 94% w/ cefepime. No prior h/o pseudomonas infection documented. * Pressors being weaned. * P/F ratio still < 100, paralytics/sedation/vent optimization in progress. * Renal fxn stable, vanco trough level 18.4 this AM (prior doses hung on schedule and level was appropriately timed). 10/13 * Vancomycin discontinued on 10/12, restarted today for minimal improvement, positive MRSA nasal screen. Bronch was pending but now reporting no growth. Renal function has vastly improved, will redose with 1750 mg x 1 then start 1250 mg q8H * 67 year old M with septic shock receiving vancomycin/cefepime empirically for possible lung/urinary source. * Pertinent microbiologic data includes: Positive MRSA Nasal Swab, sputum, urine and blood culture pending. * Scr with significant improvement today, likely 2nd significant UOP * Discussed at multidisciplinary rounds yesterday - plan is to continue vanc for at least 72 hours or as dictated by new culture results/clinical status Plan Vancomycin * Current regimen: 1250 mg IV every 12 hours * Random level obtained 10/22/23 resulted as 20.3 mcg/mL. This is predicted to be slightly above target AUC/ANTWAN of 400-600 mg/L.hr * Predicted AUC at steady state: 620 mg/L.hr * Adjust dose to 1000 gm q12H * Will repeat level if course extended Pharmacy will continue to follow and will adjust dose/frequency as necessary. Thank you. Pharmacy has transitioned to AUC monitoring for vancomycin. AUC/ANTWAN is the preferred PK/PD target and is associated with decreased risk of nephrotoxicity compared to traditional trough targets.
--- NOTE | 2023-10-22 17:40 | XCELERA ---
[id number]
[2023-10-22] MEDS ORDERED: VANCOMYCIN HCL 1,000 MG in SODIUM CHLORIDE 0.9% 250 ML IV SCH (22:00)
[2023-10-23 06:36] LABS: Hematocrit (blood only) 28.7 % (42.0-52.0); Hemoglobin 8.5 g/dl (14.0-18.0); Mean Corpuscular Hemoglobin 25.1 pg (25.0-34.0); Mean Corpuscular Hgb Conc 29.6 g/dL (32.0-36.0); Mean Corpuscular Volume 84.7 fL (80.0-100.0); Mean Platelet Volume 9.5 fL (9.4-12.4); Platelet Count 214 K/uL (130-400); RDW Coefficient of Variation 15.3 % (11.5-14.5); RDW Standard Deviation 46.8 fL (36.4-46.3); Red Blood Count 3.39 M/uL (4.70-6.10); White Blood Count 8.57 K/ul (4.8-10.8)
[2023-10-23 06:53] LABS: Albumin Globulin Ratio 0.8 (0.9-2); Albumin Level 2.8 gm/dl (3.4-5.0); BUN Creatinine Ratio 22.1 (10-20); Bilirubin,Total 0.7 mg/dl (0.2-1.0); Calcium 8.9 mg/dl (8.6-10.3); Creatinine Clr Calc Pharmacy 88.5 ml/min; Est GFR (African American) 78.1 ml/min; Est GFR (Non-African American) 67.4 ml/min; Globulin 3.5 gm/dl (2.5-4.0); Potassium 3.6 mmol/L (3.5-5.1); Total Protein 6.3 gm/dl (6.0-8.3)
[2023-10-23 06:58] LABS: Partial Thromboplastin Time 28 Seconds (21-31)
--- NOTE | 2023-10-23 08:18 | XRay Report ---
XR chest 1V portable HISTORY: Shortness of breath. eval for aspiration COMPARISON: Chest 10/21/2023. FINDINGS: No pneumothorax. There are low lung volumes. No acute fractures. The heart remains enlarged . Small bilateral pleural effusions and patchy bibasilar densities persist. Mild interstitial pulmona ry edema has slightly improved. IMPRESSION: 1. Cardiomegaly with slight improvement in the mild interstitial pulmonary edema. 2. Small bilateral pleural effusions and patchy bibasilar densities persist. ACT 112: Negative or not required by law. Electronically signed by: Casimiro Canchola M.D. 10/23/2023 8:16 AM
[2023-10-23] MEDS: UMECLIDINIUM BROMIDE 62.5MCG/BLISTER 7 PUFFS/INHALER INH SCH (10:10)
[2023-10-23] MEDS: FLUTICASONE/VILANTEROL 200/25MCG 14 PUFFS/INHALER INH SCH (10:11)
--- NOTE | 2023-10-23 10:47 | Pulmonology Progress Note ---
Date of Service October 23, 2023 Assessment & Plan (1) ARF (acute renal failure): (2) HTN (hypertension): (3) CHF (congestive heart failure): (4) COPD (chronic obstructive pulmonary disease): (5) Sepsis: (6) Acute hypoxic respiratory failure: Plan IMPRESSION: 67-year-old male who was admitted in the setting of severe sepsis with septic shock from possible pulmonary source requiring prolonged intubation with concerns for ARDS who was noted to develop worsening tachypnea and increasing FiO2 requirement. RECOMMENDATIONS: 1. Respiratory distress with hypoxia and hypercapnia - Continues to improve from a pulmonary perspective. The patient wears BiPAP overnight which has seemed to be a difference maker in addition to offloading excess volume. Saturating well on 3 L nasal cannula at this time. Continue with offloading volume and BiPAP with any sleep/naps. 2. CHF - Recommend close monitoring of I's and O's. Continue with daily Lasix dosing. Would recommend BiPAP with any sleep. Patient looks much better today. He still has a ways to go from his volume status, but his respiratory status certainly has improved. 3. COPD - Previously diagnosed at an outside facility. On Trelegy Ellipta at home. Can add back the equivalent while in the hospital. He is not bronchospastic at this time, however a COPD exacerbation this patient would certainly be hard on the patient. 4. Sepsis - Continue with guided antibiotic therapy as you have been. Thank you for allowing us to participate in the care of this pleasant patient. Pulmonary medicine will continue to follow. Admission and Anticipated Discharge Date Admission Date: October 10, 2023 Supervising Physician Co-Signing Physician Notes I saw and evaluated the patient with Rachid Kim PA-C, and agree with findings and plan as documented in the note. Patient seen and examined at bedside. No acute distress, no adverse events overnight Has been using BiPAP overnight. Was a bit upset that he was not able to do much when he tried to get out of the bed. Did explain to him that it will take time for him to go back to where he was before. He was saturating 93-94% on 5 L nasal cannula. Advised the nurse to go down gradually to keep between 90-92 Constitutional: No acute distress HEENT: EOMI, PERRLA Respiratory system: Decreased air entry bilaterally, no wheeze, rhonchi, positive crackles bilaterally, right> left CVS: S1-S2 positive, no murmurs or gallops Abdomen: Soft, nontender, nondistended, positive bowel sounds x4, obese Extremities: +2 pulses bilaterally radialis/ dorsalis pedis, no cyanosis, +1 pitting edema bilateral lower extremity Neuro: Awake alert oriented x3 Psych: Normal mood and affect G/U: Positive Robertson Plan: In/out: -2 L, urine output 4501 Decrease Lasix to 20 mg on a daily basis BiPAP nightly and as needed shortness of breath Case management working on getting the patient AVAPS machine on discharge Complete the course of antibiotic Please note the above document was generated using voice recognition software. It may contain grammatical, syntax or spelling errors.Any formal questions or concerns about the content, text or information contained within the body of this dictation should be directly addressed to the provider for clarification. Subjective Patient seen and evaluated by myself at bedside. He is breathing better at this time. Tolerated the BiPAP well. Still feeling weak. Review of Systems 2 Review of Systems: As per subjective. Physical Exam 2 Physical Exam: VITAL SIGNS - Vital signs and nursing notes were reviewed. GENERAL - 67-year-old male appearing his stated age who is in no distress. LUNGS - Auscultation reveals diminished breath sounds with slight crackles appreciated. CARDIAC - RRR with S1/S2. No murmur, rubs, or gallops appreciated. EXTREMITIES - Nail clubbing not present. No peripheral cyanosis. Moderate bilateral pretibial edema present. +3/5 radial palpated throughout. PSYCH - A&Ox3 and cooperates fully with examiner. Pt is very pleasant and interacts well with examiner. Results & Data Results & Data Vital Signs (Past 12 Hours) Vital Signs Temp Pulse Pulse Resp BP BP Pulse Ox 10/23/23 10:39 37.1 C 94 H 17 130/75 95 10/23/23 07:34 37.4 C 95 H 19 121/74 95 10/23/23 03:03 101 H 32 H 91 10/23/23 03:01 36.7 C 97 H 20 122/73 94 10/23/23 00:00 24 10/22/23 23:50 100 H 30 H 93 O2 Del Method O2 Flow Rate FiO2 10/23/23 10:39 Oxymask 5 10/23/23 07:34 Nasal Cannula 10/23/23 03:03 35 10/23/23 03:01 BiPAP 10/23/23 00:00 10/22/23 23:50 35 Laboratory Results 10/23/23 05:52 10/23/23 05:52 PG Care Time/CCT Total # of Minutes Spent Total Time Spent with Patient: Total time spent is greater than 50% in coordination of care (as documented) at patient's floor/unit and/or counseling patient: Coding Level of Care Code 77124 SUB INP/OBS CARE 2/35MIN Diagnoses ARF (acute renal failure) N17.9 HTN (hypertension) I10 CHF (congestive heart failure) I50.9 COPD (chronic obstructive pulmonary disease) J44.9 Sepsis A41.9 Acute hypoxic respiratory failure J96.01
--- NOTE | 2023-10-23 16:26 | Hospitalist Progress Note ---
Date of Service October 23, 2023 Assessment & Plan (1) Sepsis: Plan: Sepsis, secondary to multifocal pneumonia, suspect gram negative pneumonia history of copd with CHF. Acute diastolic heart failure. Patient is with a severe acute respiratory acidosis and Required intubation. Initially required pressors/ norepinephrine vasopressin and phenylephrine--Extubated on 10/16 Blood cultures, sputum culture negative to date, Respiratory biofire negative, random cortisol appropriate' respiratory culture is negative MRSA nares positive On levaquin,vancomycin- legionella antigen negative completed course of antibiotics on 10/22 slightly supratherapeutic vancomycin level subsequently vancomycin was stopped on 10/21 Patient is now improving with diuresis. 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 Pulmonary medicine try to get home trilogy for the patient. Chest x-ray shows some clearing of pulmonary edema continues on diuresis Physical Exam Physical Exam: Awake and alert. He has an eschar on his left cheek. Lungs are with lateral dullness at the bases resolved rhonchi from today previous Card exam is regular Results & Data Results & Data Vital Signs (Past 12 Hours) Vital Signs Temp Pulse Pulse Resp BP BP Pulse Ox 10/23/23 15:33 99.0 F 97 H 18 129/80 96 10/23/23 10:39 98.8 F 94 H 17 130/75 95 10/23/23 08:00 95 H 10/23/23 08:00 10/23/23 07:34 99.3 F 95 H 19 121/74 95 O2 Del Method O2 Flow Rate 10/23/23 15:33 Oxymask 4 10/23/23 10:39 Oxymask 5 10/23/23 08:00 10/23/23 08:00 Oxymask 5 10/23/23 07:34 Nasal Cannula Laboratory Results Reviewed CBC reviewed chemistry PG Care Time/CCT Total # of Minutes Spent Total Time Spent with Patient: Total time spent is greater than 50% in coordination of care (as documented) at patient's floor/unit and/or counseling patient: Coding Level of Care Code 40901 SUB INP/OBS CARE 3/50MIN Diagnoses Sepsis A41.9 ARF (acute renal failure) N17.9 HTN (hypertension) I10
[2023-10-24] MEDS: FUROSEMIDE 20 MG TAB PO SCH (08:54)
--- NOTE | 2023-10-24 13:13 | Pulmonology Progress Note ---
Date of Service October 24, 2023 Assessment & Plan (1) ARF (acute renal failure): (2) HTN (hypertension): (3) CHF (congestive heart failure): (4) COPD (chronic obstructive pulmonary disease): (5) Sepsis: (6) Acute hypoxic respiratory failure: Plan IMPRESSION: 67-year-old male who was admitted in the setting of severe sepsis with septic shock from possible pulmonary source requiring prolonged intubation with concerns for ARDS who was noted to develop worsening tachypnea and increasing FiO2 requirement. Spirometry 10/24/2023 personally reviewed: Nonspecific spirometry, inclining more towards restrictive pattern FVC 0.91 L 19%, FEV1 0.70 L 19%, FEV1/FVC 77 RECOMMENDATIONS: -- Respiratory distress with hypoxia and hypercapnia - Multifactorial From multilobar pneumonia HFpEF DAVID/OHS continues to improve from a pulmonary perspective. Continue with O2 supplementation and BiPAP nightly and as needed shortness of breath -- CHF - Continue with diuretics -- COPD - Previously diagnosed at an outside facility. On Trelegy Ellipta at home --Multilobar pneumonia- Continue with guided antibiotic therapy as you have been. Repeat CT chest in 2 months Plan: In/out: -2.8 L, urine output 4000 Continue with diuretics BiPAP nightly and as needed shortness of breath Given FEV1 of only 19% predicted, patient likely has restrictive lung pattern but probable DAVID/OHS. He is going to benefit from AVAPS. Case management working on getting the patient AVAPS machine on discharge Complete the course of antibiotic Recommend discontinuing Robertson if there is no clear indication for it Please note the above document was generated using voice recognition software. It may contain grammatical, syntax or spelling errors.Any formal questions or concerns about the content, text or information contained within the body of this dictation should be directly addressed to the provider for clarification. Admission and Anticipated Discharge Date Admission Date: October 10, 2023 Subjective Patient seen and examined at bedside. No acute distress, no adverse events overnight Has been using his BiPAP nightly Overall he says that he is feeling better when it comes to his breathing Patient's was also in the room at the time of examination He was saturating 95% on 6 L nasal cannula, I went down to 4 L. Review of Systems 2 Review of Systems: All systems reviewed & are unremarkable except as noted in Subjective Physical Exam 2 Physical Exam: Constitutional: No acute distress HEENT: EOMI, PERRLA Respiratory system: Decreased air entry bilaterally, no wheeze, rhonchi, positive crackles bilaterally, right> left CVS: S1-S2 positive, no murmurs or gallops Abdomen: Soft, nontender, nondistended, positive bowel sounds x4, obese Extremities: +2 pulses bilaterally radialis/ dorsalis pedis, no cyanosis, +1 pitting edema bilateral lower extremity Neuro: Awake alert oriented x3 Psych: Normal mood and affect G/U: Positive Robertson Skin: no rashes, warm and dry Lymphatic: no cervical or axillary lymphadenopathy Results & Data Results & Data Vital Signs (Past 12 Hours) Vital Signs Temp Pulse Pulse Resp BP BP Pulse Ox 10/24/23 11:29 36.8 C 101 H 20 122/77 94 10/24/23 07:57 36.9 C 96 H 22 114/70 97 10/24/23 07:20 71 10/24/23 04:18 95 H 17 93 10/24/23 03:07 37.2 C 98 H 20 129/80 93 O2 Del Method O2 Flow Rate FiO2 10/24/23 11:29 Nasal Cannula 6 10/24/23 07:57 Oxymask 6 10/24/23 07:20 10/24/23 04:18 35 10/24/23 03:07 BiPAP Laboratory Results 10/23/23 05:52 10/23/23 05:52 PG Care Time/CCT Total # of Minutes Spent Total Time Spent with Patient: Total time spent is greater than 50% in coordination of care (as documented) at patient's floor/unit and/or counseling patient: Coding Level of Care Code 53593 SUB INP/OBS CARE 2/35MIN Diagnoses ARF (acute renal failure) N17.9 HTN (hypertension) I10 CHF (congestive heart failure) I50.9 COPD (chronic obstructive pulmonary disease) J44.9 Sepsis A41.9 Acute hypoxic respiratory failure J96.01
--- NOTE | 2023-10-24 17:03 | Hospitalist Progress Note ---
Date of Service October 24, 2023 Assessment & Plan (1) Sepsis: Plan: Sepsis, secondary to multifocal pneumonia, suspect gram negative pneumonia history of copd with CHF. Acute diastolic heart failure treated with diuretic Patient is with a severe acute respiratory acidosis and Required intubation. Initially required pressors/ norepinephrine vasopressin and phenylephrine--Extubated on 10/16 Blood cultures, sputum culture negative to date, Respiratory biofire negative, random cortisol appropriate' respiratory culture is negative MRSA nares positive completed levaquin,vancomycin-with local skin infection at IV site will have short course of doxycycline Patient is now improving with diuresis. 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 he did stand today right forarm is improving Physical Exam Physical Exam: Awake and alert. He has an eschar on his left cheek. Lungs are with lateral dullness at the bases resolved rhonchi from today previous Card exam is regular some area around right forarm iv site Results & Data Results & Data Vital Signs (Past 12 Hours) Vital Signs Temp Pulse Pulse Resp BP Pulse Ox O2 Del Method 10/24/23 16:00 Nasal Cannula 10/24/23 15:33 98.2 F 95 H 18 124/76 93 Nasal Cannula 10/24/23 14:54 100 H 10/24/23 11:29 98.2 F 101 H 20 122/77 94 Nasal Cannula 10/24/23 07:57 98.4 F 96 H 22 114/70 97 Oxymask 10/24/23 07:20 71 O2 Flow Rate 10/24/23 16:00 6 10/24/23 15:33 6 10/24/23 14:54 10/24/23 11:29 6 10/24/23 07:57 6 10/24/23 07:20 PG Care Time/CCT Total # of Minutes Spent Total Time Spent with Patient: Total time spent is greater than 50% in coordination of care (as documented) at patient's floor/unit and/or counseling patient: Coding Level of Care Code 71796 SUB INP/OBS CARE 2/35MIN Diagnoses Sepsis A41.9 ARF (acute renal failure) N17.9 HTN (hypertension) I10
[2023-10-24] MEDS: DOXYCYCLINE HYCLATE 100 MG CAP PO SCH (20:51)
[2023-10-25 07:07] LABS: BUN Creatinine Ratio 23.3 (10-20); Calcium 9.1 mg/dl (8.6-10.3); Creatinine Clr Calc Pharmacy 85.4 ml/min; Est GFR (African American) 75.6 ml/min; Est GFR (Non-African American) 65.3 ml/min; Potassium 3.6 mmol/L (3.5-5.1)
--- NOTE | 2023-10-25 07:15 | XRay Report ---
XR chest 1V portable HISTORY: 67 years-old Male f/u acute shortness of breath COMPARISON: 10/23/2023 TECHNIQUE: AP view of the chest FINDINGS: Cardiac silhouette is enlarged. Mildly improved pulmonary edema. Small pleural effusions with mild pe rsistent bibasilar consolidation which is similar to mildly improved. IMPRESSION: 1. Cardiomegaly with mildly improved pulmonary edema. 2. Small pleural effusions with persistent bibasilar opacities. ACT 112: Negative or not required by law. The above report was generated using voice recognition software. It may contain grammatical, syntax o r spelling errors. Electronically signed by: Kaleb Douglass M.D. 10/25/2023 7:14 AM
--- NOTE | 2023-10-25 11:09 | Pulmonology Progress Note ---
Date of Service October 25, 2023 Assessment & Plan (1) ARF (acute renal failure): (2) HTN (hypertension): (3) CHF (congestive heart failure): (4) COPD (chronic obstructive pulmonary disease): (5) Sepsis: (6) Acute hypoxic respiratory failure: Plan IMPRESSION: 67-year-old male who was admitted in the setting of severe sepsis with septic shock from possible pulmonary source requiring prolonged intubation with concerns for ARDS who was noted to develop worsening tachypnea and increasing FiO2 requirement. Spirometry 10/24/2023 personally reviewed: Nonspecific spirometry, inclining more towards restrictive pattern FVC 0.91 L 19%, FEV1 0.70 L 19%, FEV1/FVC 77 RECOMMENDATIONS: -- Respiratory distress with hypoxia and hypercapnia - Multifactorial From multilobar pneumonia HFpEF DAVID/OHS continues to improve from a pulmonary perspective. Continue with O2 supplementation and BiPAP nightly and as needed shortness of breath -- CHF - Continue with diuretics -- COPD - Previously diagnosed at an outside facility. On Trelegy Ellipta at home --Multilobar pneumonia- Continue with guided antibiotic therapy as you have been. Repeat CT chest in 2 months --Metabolic alkalosis Likely from diuretics, continue to monitor Will consider acetazolamide Plan: In/out: -1.5 L, -11 L since coming to the hospital Change Lasix to 20 mg every other day given the bump in creatinine BiPAP nightly and as needed shortness of breath Given FEV1 of only 19% predicted, patient likely has restrictive lung pattern but probable DAVID/OHS. He is going to benefit from AVAPS. Case management working on getting the patient AVAPS machine on discharge Recommend out of the bed to chair Complete the course of antibiotic Please note the above document was generated using voice recognition software. It may contain grammatical, syntax or spelling errors.Any formal questions or concerns about the content, text or information contained within the body of this dictation should be directly addressed to the provider for clarification. Admission and Anticipated Discharge Date Admission Date: October 10, 2023 Subjective Patient seen and examined at bedside. No acute distress, no AutoSense overnight. He was saturating 93-94% on 4 L nasal cannula. I went down to 3 L. Overall he stated he is feeling better. Shortness of breath is improved. Occasional cough with clear phlegm. Denies any hemoptysis Fair appetite Did use his BiPAP overnight Review of Systems 2 Review of Systems: All systems reviewed & are unremarkable except as noted in Subjective Physical Exam 2 Physical Exam: Constitutional: No acute distress HEENT: EOMI, PERRLA Respiratory system: Decreased air entry bilaterally, no wheeze, rhonchi, positive crackles bilaterally, right> left CVS: S1-S2 positive, no murmurs or gallops Abdomen: Soft, nontender, nondistended, positive bowel sounds x4, obese Extremities: +2 pulses bilaterally radialis/ dorsalis pedis, no cyanosis, +1 pitting edema bilateral lower extremity Neuro: Awake alert oriented x3 Psych: Normal mood and affect G/U: No Robertson Skin: no rashes, warm and dry Lymphatic: no cervical or axillary lymphadenopathy Results & Data Results & Data Vital Signs (Past 12 Hours) Vital Signs Temp Pulse Pulse Resp BP Pulse Ox O2 Del Method 10/25/23 07:48 36.7 C 93 H 18 148/83 H 93 Nasal Cannula 10/25/23 07:14 90 10/25/23 02:58 68 18 94 10/25/23 02:28 37.1 C 100 H 16 120/77 96 BiPAP 10/25/23 00:00 98 H O2 Flow Rate FiO2 10/25/23 07:48 4 10/25/23 07:14 10/25/23 02:58 35 10/25/23 02:28 10/25/23 00:00 Laboratory Results 10/23/23 05:52 10/25/23 05:47 PG Care Time/CCT Total # of Minutes Spent Total Time Spent with Patient: Total time spent is greater than 50% in coordination of care (as documented) at patient's floor/unit and/or counseling patient: Coding Level of Care Code 39575 SUB INP/OBS CARE 2/35MIN Diagnoses ARF (acute renal failure) N17.9 HTN (hypertension) I10 CHF (congestive heart failure) I50.9 COPD (chronic obstructive pulmonary disease) J44.9 Sepsis A41.9 Acute hypoxic respiratory failure J96.01
--- NOTE | 2023-10-25 17:58 | Hospitalist Progress Note ---
Date of Service October 25, 2023 Assessment & Plan (1) Sepsis: Plan: Sepsis, secondary to multifocal pneumonia, suspect gram negative pneumonia history of copd with CHF. Acute diastolic heart failure treated with diuretic dosing change every 48 hours next dose on 10/26 Patient is with a severe acute respiratory acidosis and Required intubation. Initially required pressors/ norepinephrine vasopressin and phenylephrine--Extubated on 10/16 Blood cultures, sputum culture negative to date, Respiratory biofire negative, random cortisol appropriate' respiratory culture is negative MRSA nares positive completed levaquin,vancomycin-with local skin infection at IV site will have short course of doxycycline Patient is now improving with diuresis. 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 He has an eschar on his left cheek. Lungs are with lateral dullness at the bases, oob to chair 10/24 Card exam is regular some area around right forarm iv site Results & Data Results & Data Vital Signs (Past 12 Hours) Vital Signs Temp Pulse Pulse Resp BP Pulse Ox O2 Del Method 10/25/23 16:56 88 10/25/23 16:22 110 H 22 127/87 92 Nasal Cannula 10/25/23 11:39 97.9 F 96 H 18 123/73 94 Oxymask 10/25/23 08:00 Nasal Cannula 10/25/23 07:48 98.1 F 93 H 18 148/83 H 93 Nasal Cannula 10/25/23 07:14 90 O2 Flow Rate 10/25/23 16:56 10/25/23 16:22 4 10/25/23 11:39 10/25/23 08:00 4 10/25/23 07:48 4 10/25/23 07:14 Laboratory Results Reviewed chemistry PG Care Time/CCT Total # of Minutes Spent Total Time Spent with Patient: Total time spent is greater than 50% in coordination of care (as documented) at patient's floor/unit and/or counseling patient: Coding Level of Care Code 18602 SUB INP/OBS CARE 2/35MIN Diagnoses Sepsis A41.9 ARF (acute renal failure) N17.9 HTN (hypertension) I10
[2023-10-26 06:32] LABS: Hemoglobin 8.4 g/dl (14.0-18.0); Mean Corpuscular Hemoglobin 25.4 pg (25.0-34.0); Mean Corpuscular Volume 84.6 fL (80.0-100.0); Mean Platelet Volume 9.4 fL (9.4-12.4); Platelet Count 185 K/uL (130-400); RDW Standard Deviation 46.5 fL (36.4-46.3); Red Blood Count 3.31 M/uL (4.70-6.10); White Blood Count 6.61 K/ul (4.8-10.8)
[2023-10-26 09:17] LABS: BUN Creatinine Ratio 22.8 (10-20); Calcium 9.1 mg/dl (8.6-10.3); Creatinine Clr Calc Pharmacy 79.6 ml/min; Est GFR (African American) 70.5 ml/min; Est GFR (Non-African American) 60.8 ml/min; Potassium 3.2 mmol/L (3.5-5.1)
--- NOTE | 2023-10-26 10:54 | Pulmonology Progress Note ---
Date of Service October 26, 2023 Assessment & Plan (1) ARF (acute renal failure): (2) HTN (hypertension): (3) CHF (congestive heart failure): (4) COPD (chronic obstructive pulmonary disease): (5) Sepsis: (6) Acute hypoxic respiratory failure: Plan IMPRESSION: 67-year-old male who was admitted in the setting of severe sepsis with septic shock from possible pulmonary source requiring prolonged intubation with concerns for ARDS who was noted to develop worsening tachypnea and increasing FiO2 requirement. Spirometry 10/24/2023 personally reviewed: Nonspecific spirometry, inclining more towards restrictive pattern FVC 0.91 L 19%, FEV1 0.70 L 19%, FEV1/FVC 77 RECOMMENDATIONS: -- Respiratory distress with hypoxia and hypercapnia - Multifactorial From multilobar pneumonia HFpEF DAVID/OHS continues to improve from a pulmonary perspective. Continue with O2 supplementation and BiPAP nightly and as needed shortness of breath -- CHF - Continue with diuretics -- COPD - Previously diagnosed at an outside facility. On Trelegy Ellipta at home --Multilobar pneumonia- Continue with guided antibiotic therapy as you have been. Repeat CT chest in 2 months --Metabolic alkalosis Likely from diuretics, continue to monitor Will consider acetazolamide Plan: In/out: -1.5 L, -11 L since coming to the hospital Would recommend to give Lasix on an as-needed basis with weight gain or worsening lower extremity edema BiPAP nightly and as needed shortness of breath Given FEV1 of only 19% predicted, patient likely has restrictive lung pattern but probable DAVID/OHS. He is going to benefit from AVAPS. Case management working on getting the patient AVAPS machine on discharge Recommend out of the bed to chair Complete the course of antibiotic Case was discussed with RN at bedside No further recommendation from pulmonary perspective, will sign off Please call directly with any questions Please note the above document was generated using voice recognition software. It may contain grammatical, syntax or spelling errors.Any formal questions or concerns about the content, text or information contained within the body of this dictation should be directly addressed to the provider for clarification. Admission and Anticipated Discharge Date Admission Date: October 10, 2023 Subjective Patient seen and examined at bedside. No acute distress, no adverse events overnight He was sitting on the chair. He stated he is feeling much better he comes to his breathing. Has been using his BiPAP overnight Using incentive spirometry as well as flutter valve. Not bringing up any phlegm Denies any nausea or vomiting Appetite is fair Review of Systems 2 Review of Systems: All systems reviewed & are unremarkable except as noted in Subjective Physical Exam 2 Physical Exam: Constitutional: No acute distress HEENT: EOMI, PERRLA Respiratory system: Decreased air entry bilaterally, no wheeze, rhonchi, positive crackles bilaterally, right> left CVS: S1-S2 positive, no murmurs or gallops Abdomen: Soft, nontender, nondistended, positive bowel sounds x4, obese Extremities: +2 pulses bilaterally radialis/ dorsalis pedis, no cyanosis, +1 pitting edema bilateral lower extremity Neuro: Awake alert oriented x3 Psych: Normal mood and affect G/U: No Robertson Skin: no rashes, warm and dry Lymphatic: no cervical or axillary lymphadenopathy Results & Data Results & Data Vital Signs (Past 12 Hours) Vital Signs Temp Pulse Pulse Resp BP Pulse Ox O2 Del Method 10/26/23 07:52 36.7 C 98 H 22 141/76 H 94 Nasal Cannula 10/26/23 03:48 36.6 C 86 19 140/79 93 Nasal Cannula 10/26/23 00:00 86 O2 Flow Rate 10/26/23 07:52 5 10/26/23 03:48 5 10/26/23 00:00 Laboratory Results 10/26/23 05:32 10/26/23 05:32 PG Care Time/CCT Total # of Minutes Spent Total Time Spent with Patient: Total time spent is greater than 50% in coordination of care (as documented) at patient's floor/unit and/or counseling patient: Coding Level of Care Code 55959 SUB INP/OBS CARE 2/35MIN Diagnoses ARF (acute renal failure) N17.9 HTN (hypertension) I10 CHF (congestive heart failure) I50.9 COPD (chronic obstructive pulmonary disease) J44.9 Sepsis A41.9 Acute hypoxic respiratory failure J96.01
--- NOTE | 2023-10-26 16:00 | Hospitalist Progress Note ---
Date of Service October 26, 2023 Assessment & Plan (1) Sepsis: Plan: Sepsis, secondary to multifocal pneumonia, suspect gram negative pneumonia history of copd with CHF. Acute diastolic heart failure treated with diuretic dosing change every 48 hours next dose on 10/26 Patient is with a severe acute respiratory acidosis and Required intubation. Initially required pressors/ norepinephrine vasopressin and phenylephrine--Extubated on 10/16 Blood cultures, sputum culture negative to date, Respiratory biofire negative, random cortisol appropriate' respiratory culture is negative MRSA nares positive completed levaquin,vancomycin-with local skin infection at IV site will have short course of doxycycline this is improving. 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 Less lower extremity edema Physical Exam Physical Exam: Awake and oriented some of his eschar's are improving. Lungs have some minor basilar rhonchi and coarse breath sounds throughout but are getting better every day Lower extremities are with trace edema at best Results & Data Results & Data Vital Signs (Past 12 Hours) Vital Signs Temp Pulse Resp BP Pulse Ox O2 Del Method O2 Flow Rate 10/26/23 11:38 98.1 F 93 H 20 122/68 91 Nasal Cannula 5 10/26/23 07:52 98.1 F 98 H 22 141/76 H 94 Nasal Cannula 5 Laboratory Results Reviewed CBC reviewed chemistry PG Care Time/CCT Total # of Minutes Spent Total Time Spent with Patient: Total time spent is greater than 50% in coordination of care (as documented) at patient's floor/unit and/or counseling patient: Coding Level of Care Code 23266 SUB INP/OBS CARE 2/35MIN Diagnoses Sepsis A41.9 ARF (acute renal failure) N17.9 HTN (hypertension) I10
[2023-10-26] MEDS: POTASSIUM CHLORIDE CRTAB 20 MEQ TABCR PO STA (18:01)
[2023-10-26] MEDS: POTASSIUM CHLORIDE CRTAB 20 MEQ TABCR PO SCH (19:44)
[2023-10-27 03:33] LABS: Base Excess VBG 15.5 mEq/L; HCO3 VBG 44 mmol/L; Oxygen Saturation VBG 73.2 %; PCO2 VBG 73 mmHg (38-50); PO2 VBG 40 mmHg; pH VBG 7.39 (7.36-7.41)
[2023-10-27 04:14] LABS: Albumin Globulin Ratio 0.9 (0.9-2); BUN Creatinine Ratio 25.2 (10-20); Bilirubin,Total 0.7 mg/dl (0.2-1.0); Creatinine Clr Calc Pharmacy 82.2 ml/min; Est GFR (African American) 73.3 ml/min; Est GFR (Non-African American) 63.3 ml/min; Globulin 3.5 gm/dl (2.5-4.0); Phosphorus 3.5 mg/dl (2.5-4.9); Potassium 3.6 mmol/L (3.5-5.1); Total Protein 6.5 gm/dl (6.0-8.3)
--- NOTE | 2023-10-27 07:26 | Electrocardiogram Report ---
Test Reason : Blood Pressure : / mmHG Vent. Rate : 065 BPM Atrial Rate : 065 BPM P-R Int : 212 ms QRS Dur : 104 ms QT Int : 394 ms P-R-T Axes : 048 060 068 degrees QTc Int : 409 ms Sinus rhythm with 1st degree A-V block with occasional Premature ventricular complexes Nonspecific T wave abnormality Abnormal ECG When compared with ECG of 15-OCT-2023 08:32, Nonspecific T wave abnormality no longer evident in Inferior leads Nonspecific T wave abnormality now evident in Lateral leads Confirmed by Rd Saenz ([id number] on 10/27/2023 7:26:14 AM Referred By: Ju Navarrete Confirmed By:Maykel Saenz
--- NOTE | 2023-10-27 08:30 | Hospitalist Progress Note ---
Date of Service October 27, 2023 Assessment & Plan (1) Sepsis: Plan: Sepsis, secondary to multifocal pneumonia, suspect gram negative pneumonia history of copd with CHF. Acute diastolic heart failure treated with diuretic dosing change every 48 hours next dose on 10/26 Metabolic alkalosis with 1 dose of Diamox on 10/27/2023 severe acute respiratory acidosis and Required intubation. Initially required pressors/ norepinephrine vasopressin and phenylephrine--Extubated on 10/16 Blood cultures, sputum culture negative to date, Respiratory biofire negative, random cortisol appropriate' respiratory culture is negative MRSA nares positive completed levaquin,vancomycin-with local skin infection at IV site will have short course of doxycycline this is improving. 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 less lower extremity edema is at bedside and supportive of rehab if needed Physical Exam Physical Exam: Awake and oriented some of his eschar's are improving. Lungs have some minor basilar rhonchi and coarse breath sounds encouraed incentive spirometry cardiac is regular Lower extremities are with trace edema at best right forearm with less redness Results & Data Results & Data Vital Signs (Past 12 Hours) Vital Signs Temp Pulse Pulse Resp BP Pulse Ox O2 Del Method 10/27/23 08:04 99.1 F 92 H 20 126/62 93 Nasal Cannula 10/27/23 07:59 95 H 10/27/23 03:11 99.5 F 89 29 H 153/83 H 100 CPAP 10/27/23 00:00 91 H 10/26/23 23:22 97.9 F 98 H 27 H 124/69 96 Nasal Cannula 10/26/23 22:14 91 H 25 H 96 O2 Flow Rate FiO2 10/27/23 08:04 6 10/27/23 07:59 10/27/23 03:11 10/27/23 00:00 10/26/23 23:22 10/26/23 22:14 45 Laboratory Results Reviewed CBC reviewed chemistry PG Care Time/CCT Total # of Minutes Spent Total Time Spent with Patient: Total time spent is greater than 50% in coordination of care (as documented) at patient's floor/unit and/or counseling patient: Coding Level of Care Code 31081 SUB INP/OBS CARE 2/35MIN Diagnoses Sepsis A41.9 ARF (acute renal failure) N17.9 HTN (hypertension) I10
[2023-10-27] MEDS ORDERED: FUROSEMIDE 20 MG TAB PO SCH (09:00)
[2023-10-27] MEDS: acetaZOLAMIDE 250 MG TAB PO ONE (14:45)
[2023-10-28] MEDS: ACETAMINOPHEN 500 MG TAB PO PRN (01:29)
[2023-10-28 06:31] LABS: Hematocrit (blood only) 27.2 % (42.0-52.0); Hemoglobin 8.1 g/dl (14.0-18.0); Mean Corpuscular Hemoglobin 25.3 pg (25.0-34.0); Mean Corpuscular Hgb Conc 29.8 g/dL (32.0-36.0); Mean Platelet Volume 9.3 fL (9.4-12.4); Platelet Count 195 K/uL (130-400); RDW Coefficient of Variation 14.9 % (11.5-14.5); RDW Standard Deviation 46.3 fL (36.4-46.3); White Blood Count 5.82 K/ul (4.8-10.8)
[2023-10-28 06:42] LABS: BUN Creatinine Ratio 21.4 (10-20); Calcium 9.1 mg/dl (8.6-10.3); Creatinine Clr Calc Pharmacy 68.1 ml/min; Est GFR (African American) 57.7 ml/min; Est GFR (Non-African American) 49.8 ml/min; Potassium 3.6 mmol/L (3.5-5.1)
--- NOTE | 2023-10-28 10:23 | Hospitalist Progress Note ---
Date of Service October 28, 2023 Assessment & Plan (1) Sepsis: Plan: Sepsis, secondary to multifocal pneumonia, suspect gram negative pneumonia history of copd with CHF. Acute diastolic heart failure treated with diuretic dosing change every 48 hours Metabolic alkalosis with 1 dose of Diamox on 10/27/2023 severe acute respiratory acidosis and Required intubation. Initially required pressors/ norepinephrine vasopressin and phenylephrine--Extubated on 10/16 Now on Nasal cannula. Awaiting rehab placement Blood cultures, sputum culture negative to date, Respiratory biofire negative, random cortisol appropriate' respiratory culture is negative MRSA nares positive completed levaquin,vancomycin-with local skin infection at IV site will have short course of doxycycline this is improving. 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 Review of Systems Review of Systems: All systems reviewed & are unremarkable except as noted in HPI & below Physical Exam Physical Exam: Patient is lying in bed. Comfortable on nasal cannula No longer using accesory muscles to breath. improved lung sounds, less rhonchi and wheezing. Heart RRR Results & Data Results & Data Vital Signs (Past 12 Hours) Vital Signs Temp Pulse Pulse Resp BP Pulse Ox O2 Del Method 10/28/23 08:00 36.5 C 77 19 121/66 96 BiPAP 10/28/23 07:46 88 10/28/23 03:09 87 17 98 10/28/23 03:01 36.6 C 94 H 29 H 124/66 100 CPAP 10/28/23 00:00 97 H 10/27/23 22:59 36.6 C 88 21 123/73 99 CPAP 10/27/23 22:38 72 22 98 FiO2 10/28/23 08:00 10/28/23 07:46 10/28/23 03:09 45 10/28/23 03:01 10/28/23 00:00 10/27/23 22:59 10/27/23 22:38 45 PG Care Time/CCT Total # of Minutes Spent Total Time Spent with Patient: Total time spent is greater than 50% in coordination of care (as documented) at patient's floor/unit and/or counseling patient: Coding Level of Care Code 15457 SUB INP/OBS CARE 2/35MIN Diagnoses Sepsis A41.9 ARF (acute renal failure) N17.9 HTN (hypertension) I10 Time Spent (min) 35
--- NOTE | 2023-10-28 14:46 | XRay Report ---
XR chest 1V portable CLINICAL HISTORY: hypoxia TECHNIQUE: Single frontal radiograph of the chest was obtained. Comparison: Comparison is made to chest radiograph 10/25/2023 FINDINGS: No lines and tubes are seen. Cardiomegaly is noted. Faint bibasilar airspace opacities are seen. Pulm onary vascular congestion is again seen. No evidence of pleural effusion or pneumothorax. IMPRESSION: 1. Cardiomegaly and mild pulmonary edema. Findings are similar to prior exam. 2. Faint bibasilar opacities are similar to prior exam. ACT 112: Negative or not required by law. Electronically signed by: Gopal Asif M.D. 10/28/2023 2:45 PM
[2023-10-28] MEDS: acetaZOLAMIDE 500 MG in SYRINGE 0 ML IV STA (18:19)
[2023-10-29 06:56] LABS: BUN Creatinine Ratio 25.2 (10-20); Calcium 9.3 mg/dl (8.6-10.3); Creatinine Clr Calc Pharmacy 92.2 ml/min; Est GFR (African American) 83.4 ml/min; Potassium 3.6 mmol/L (3.5-5.1)
--- NOTE | 2023-10-29 11:42 | XRay Report ---
XR chest 1V portable CLINICAL HISTORY: Hypoxia. COMPARISON STUDY: Chest radiograph October 28, 2023. Chest CT October 13, 2023. FINDINGS: There is no pneumothorax or pleural effusion. Multifocal airspace opacities are similar to prior exam. Cardiomediastinal silhouette is stable. IMPRESSION: No significant change in multifocal airspace opacities suggestive of pneumonia. ACT 112: Negative or not required by law. Electronically signed by: Cruzito Godwin M.D. 10/29/2023 11:40 AM
[2023-10-29] MEDS: acetaZOLAMIDE 500 MG in SYRINGE 0 ML IV STA (16:20)
--- NOTE | 2023-10-29 17:52 | Hospitalist Progress Note ---
Date of Service October 29, 2023 Assessment & Plan (1) Sepsis: Plan: Sepsis, secondary to multifocal pneumonia, suspect gram negative pneumonia history of copd with CHF. Acute diastolic heart failure treated with diuretic dosing change every 48 hours Metabolic alkalosis with 1 dose of Diamox on 10/27/2023, 10/27 and 10/28 severe acute respiratory acidosis and Required intubation. Initially required pressors/ norepinephrine vasopressin and phenylephrine--Extubated on 10/16 Now on Nasal cannula. Awaiting rehab placement Acetazolamide for metabolic alkalosis. Patient remains negative. Blood cultures, sputum culture negative to date, Respiratory biofire negative, random cortisol appropriate' respiratory culture is negative MRSA nares positive completed levaquin,vancomycin-with local skin infection at IV site will have short course of doxycycline this is improving. 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 Review of Systems Review of Systems: All systems reviewed & are unremarkable except as noted in HPI & below Physical Exam Physical Exam: Patient is lying in bed. Comfortable on nasal cannula No longer using accesory muscles to breath. improved lung sounds, less rhonchi and wheezing. Heart RRR Results & Data Results & Data Vital Signs (Past 12 Hours) Vital Signs Temp Pulse Pulse Resp BP Pulse Ox O2 Del Method 10/29/23 16:20 Nasal Cannula 10/29/23 16:05 36.7 C 85 19 119/65 95 Nasal Cannula 10/29/23 15:00 65 10/29/23 12:11 36.7 C 85 18 139/71 94 Nasal Cannula 10/29/23 09:00 Nasal Cannula 10/29/23 07:56 36.6 C 95 H 19 117/72 98 Nasal Cannula 10/29/23 07:36 88 O2 Flow Rate 10/29/23 16:20 5 10/29/23 16:05 5.0 10/29/23 15:00 10/29/23 12:11 5.0 10/29/23 09:00 5 10/29/23 07:56 5.0 10/29/23 07:36 PG Care Time/CCT Total # of Minutes Spent Total Time Spent with Patient: Total time spent is greater than 50% in coordination of care (as documented) at patient's floor/unit and/or counseling patient: Coding Level of Care Code 17222 SUB INP/OBS CARE 2/35MIN Diagnoses Sepsis A41.9 ARF (acute renal failure) N17.9 HTN (hypertension) I10
[2023-10-30 07:26] LABS: Hematocrit (blood only) 27.1 % (42.0-52.0); Mean Corpuscular Hemoglobin 25.2 pg (25.0-34.0); Mean Corpuscular Hgb Conc 29.5 g/dL (32.0-36.0); Mean Corpuscular Volume 85.2 fL (80.0-100.0); Mean Platelet Volume 9.2 fL (9.4-12.4); Platelet Count 210 K/uL (130-400); RDW Coefficient of Variation 14.7 % (11.5-14.5); Red Blood Count 3.18 M/uL (4.70-6.10); White Blood Count 6.16 K/ul (4.8-10.8)
[2023-10-30 07:35] LABS: BUN Creatinine Ratio 25.3 (10-20); Calcium 9.3 mg/dl (8.6-10.3); Creatinine Clr Calc Pharmacy 102.4 ml/min; Est GFR (African American) 96.3 ml/min; Est GFR (Non-African American) 83.1 ml/min; Potassium 3.6 mmol/L (3.5-5.1)
--- NOTE | 2023-10-30 16:50 | Fluoroscopy Report ---
MODIFIED BARIUM SWALLOW CLINICAL HISTORY: Rule out aspiration COMPARISON STUDY: None. FLUOROSCOPY TIME: 1.29 minutes. Ka, r: 13.8 mGy. TECHNIQUE: A modified barium swallow was performed in conjunction with Speech Pathology. The patient ingested varying consistencies of barium containing material. Video fluoroscopy was performed. FINDINGS: Penetration was noted with several consistencies. However, no aspiration was identified wit h thin liquids, nectar thick liquids, pudding or cracker and pudding consistencies. Epiglottic invers ion was normal. Laryngeal elevation was normal. IMPRESSION: 1. No tracheal aspiration. 2. Full recommendations by Speech pathology to follow. ACT 112: Negative or not required by law. Electronically signed by: Cruzito Godwin M.D. 10/30/2023 4:48 PM
--- NOTE | 2023-10-30 18:31 | Hospitalist Progress Note ---
Date of Service October 30, 2023 Assessment & Plan (1) Sepsis: Plan: Sepsis, secondary to multifocal pneumonia, suspect gram negative pneumonia history of copd with CHF. Acute diastolic heart failure treated with diuretic dosing change every 48 hours Metabolic alkalosis with 1 dose of Diamox on 10/27/2023, 10/27, 10/28 and 10/29 severe acute respiratory acidosis and Required intubation. Initially required pressors/ norepinephrine vasopressin and phenylephrine--Extubated on 10/16 Now on Nasal cannula. Awaiting rehab placement Acetazolamide for metabolic alkalosis. Patient remains negative. Blood cultures, sputum culture negative to date, Respiratory biofire negative, random cortisol appropriate' respiratory culture is negative MRSA nares positive completed levaquin,vancomycin-with local skin infection at IV site will have short course of doxycycline this is improving. 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 Review of Systems Review of Systems: All systems reviewed & are unremarkable except as noted in HPI & below Physical Exam Physical Exam: Patient is lying in bed. Comfortable on nasal cannula No longer using accesory muscles to breath. improved lung sounds, less rhonchi and wheezing. Heart RRR Results & Data Results & Data Vital Signs (Past 12 Hours) Vital Signs Temp Pulse Pulse Resp BP Pulse Ox O2 Del Method 10/30/23 16:00 83 10/30/23 14:43 37.1 C 80 20 140/82 96 Nasal Cannula 10/30/23 11:41 93 H 20 146/81 H 97 Nasal Cannula 10/30/23 08:00 Nasal Cannula 10/30/23 07:24 64 10/30/23 07:23 90 20 117/70 95 Nasal Cannula O2 Flow Rate 10/30/23 16:00 10/30/23 14:43 10/30/23 11:41 10/30/23 08:00 5 10/30/23 07:24 10/30/23 07:23 PG Care Time/CCT Total # of Minutes Spent Total Time Spent with Patient: Total time spent is greater than 50% in coordination of care (as documented) at patient's floor/unit and/or counseling patient: Coding Level of Care Code 50717 SUB INP/OBS CARE 2/35MIN Diagnoses Sepsis A41.9 ARF (acute renal failure) N17.9 HTN (hypertension) I10
[2023-10-30] MEDS: acetaZOLAMIDE 500 MG in SYRINGE 0 ML IV ONE (19:12)
[2023-10-31 06:28] LABS: Hematocrit (blood only) 27.4 % (42.0-52.0); Mean Corpuscular Hemoglobin 24.8 pg (25.0-34.0); Mean Corpuscular Hgb Conc 29.2 g/dL (32.0-36.0); Mean Corpuscular Volume 84.8 fL (80.0-100.0); Platelet Count 206 K/uL (130-400); RDW Coefficient of Variation 14.8 % (11.5-14.5); RDW Standard Deviation 46.1 fL (36.4-46.3); Red Blood Count 3.23 M/uL (4.70-6.10)
[2023-10-31 06:37] LABS: Calcium 9.2 mg/dl (8.6-10.3); Creatinine Clr Calc Pharmacy 96.8 ml/min; Est GFR (African American) 90.5 ml/min; Est GFR (Non-African American) 78.1 ml/min; Potassium 3.6 mmol/L (3.5-5.1)
[2023-10-31] MEDS: DICLOFENAC SOD 1% GEL 100 GM TUBE EXT PRN (09:23)
[2023-10-31] MEDS: acetaZOLAMIDE 500 MG in SYRINGE 0 ML IV STA (14:55)
--- NOTE | 2023-10-31 16:46 | Hospitalist Progress Note ---
Date of Service October 31, 2023 Assessment & Plan (1) Sepsis: Plan: Sepsis, secondary to multifocal pneumonia, suspect gram negative pneumonia history of copd with CHF. Acute diastolic heart failure treated with diuretic dosing change every 48 hours Metabolic alkalosis with 1 dose of Diamox on 10/27/2023, 10/27, 10/28, 10/29 and 10/30 severe acute respiratory acidosis and Required intubation. Initially required pressors/ norepinephrine vasopressin and phenylephrine --Extubated on 10/16 Now on Nasal cannula. Awaiting rehab placement Acetazolamide for metabolic alkalosis. Patient remains negative. Blood cultures, sputum culture negative to date, Respiratory biofire negative, random cortisol appropriate' respiratory culture is negative MRSA nares positive completed levaquin,vancomycin-with local skin infection at IV site will have short course of doxycycline this is improving. 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 Review of Systems Review of Systems: All systems reviewed & are unremarkable except as noted in HPI & below Physical Exam Physical Exam: Patient is lying in bed. Comfortable on nasal cannula No longer using accesory muscles to breath. improved lung sounds, less rhonchi and wheezing. Heart RRR Results & Data Results & Data Vital Signs (Past 12 Hours) Vital Signs Temp Pulse Pulse Resp BP Pulse Ox O2 Del Method 10/31/23 16:39 78 19 153/93 H 97 Nasal Cannula 10/31/23 12:14 36.6 C 70 16 144/82 H 98 Nasal Cannula 10/31/23 08:00 Nasal Cannula 10/31/23 07:47 36.9 C 91 H 20 148/83 H 99 Nasal Cannula 06/13/24 07:30 95 H O2 Flow Rate 06/13/24 16:39 10/31/23 12:14 5 10/31/23 08:00 5 10/31/23 07:47 5 10/31/23 07:30 PG Care Time/CCT Total # of Minutes Spent Total Time Spent with Patient: Total time spent is greater than 50% in coordination of care (as documented) at patient's floor/unit and/or counseling patient: Coding Level of Care Code 37527 SUB INP/OBS CARE 2/35MIN Diagnoses Sepsis A41.9 ARF (acute renal failure) N17.9 HTN (hypertension) I10
[2023-11-01 07:20] LABS: Hematocrit (blood only) 29.2 % (42.0-52.0); Hemoglobin 8.6 g/dl (14.0-18.0); Mean Corpuscular Hemoglobin 24.6 pg (25.0-34.0); Mean Corpuscular Hgb Conc 29.5 g/dL (32.0-36.0); Mean Corpuscular Volume 83.7 fL (80.0-100.0); Mean Platelet Volume 8.9 fL (9.4-12.4); Platelet Count 224 K/uL (130-400); RDW Coefficient of Variation 14.8 % (11.5-14.5); RDW Standard Deviation 44.9 fL (36.4-46.3); Red Blood Count 3.49 M/uL (4.70-6.10); White Blood Count 7.22 K/ul (4.8-10.8)
[2023-11-01 07:35] LABS: BUN Creatinine Ratio 23.5 (10-20); Calcium 9.6 mg/dl (8.6-10.3); Creatinine Clr Calc Pharmacy 98.9 ml/min; Est GFR (African American) 92.7 ml/min; Potassium 3.9 mmol/L (3.5-5.1)
[2023-11-01] MEDS: MELATONIN 3 MG TAB PO PRN (22:04)
--- NOTE | 2023-11-01 22:53 | Hospitalist Progress Note ---
Date of Service November 01, 2023 Assessment & Plan (1) Sepsis: Plan: Sepsis, secondary to multifocal pneumonia, suspect gram negative pneumonia history of copd with CHF. Acute diastolic heart failure treated with diuretic dosing change every 48 hours Metabolic alkalosis with 1 dose of Diamox on 10/27/2023, 10/27, 10/28, 10/29 and 10/30 severe acute respiratory acidosis and Required intubation. Initially required pressors/ norepinephrine vasopressin and phenylephrine --Extubated on 10/16 Now on Nasal cannula. Awaiting rehab placement Acetazolamide for metabolic alkalosis. Patient remains negative. Blood cultures, sputum culture negative to date, Respiratory biofire negative, random cortisol appropriate' respiratory culture is negative MRSA nares positive completed levaquin,vancomycin-with local skin infection at IV site will have short course of doxycycline this is improving. Reviewed BMP on 10/31 hold diuretics on 10/31 (2) ARF (acute renal failure): Plan: Resolved at this time, hyponatremia is also resolved Hypokalemia replete pt has a hypochloremia with compensation for respiratory acidosis, wearing bipap at night 1 dose of diamox on 10/27/2023 Rhabdomyolysis improved (3) HTN (hypertension): Plan: Lisinopril held for renal failure, sepsis, and hypotension requiring pressors initial concern for systolic HF ruled out as echo show preserved EF no RWMA now concern for acute diastolic heart failure, on lasix 20 mg every 48 hour elevated troponin from demand ischemia Plan Lovenox for DVT prevention 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 Review of Systems Review of Systems: All systems reviewed & are unremarkable except as noted in HPI & below Physical Exam Physical Exam: Patient is lying in bed. Comfortable on nasal cannula No longer using accesory muscles to breath. improved lung sounds, less rhonchi and wheezing. Heart RRR Results & Data Results & Data Vital Signs (Past 12 Hours) Vital Signs Temp Pulse Pulse Resp BP BP Pulse Ox 11/01/23 22:32 83 19 98 11/01/23 20:00 11/01/23 19:47 80 19 114/73 98 11/01/23 16:01 36.6 C 83 19 123/76 97 11/01/23 16:00 92 H 11/01/23 11:56 36.4 C L 92 H 19 109/70 97 O2 Del Method O2 Flow Rate FiO2 11/01/23 22:32 45 11/01/23 20:00 Nasal Cannula 5 11/01/23 19:47 Nasal Cannula 5 11/01/23 16:01 Room Air 11/01/23 16:00 11/01/23 11:56 Nasal Cannula 5 PG Care Time/CCT Total # of Minutes Spent Total Time Spent with Patient: Total time spent is greater than 50% in coordination of care (as documented) at patient's floor/unit and/or counseling patient: Coding Level of Care Code 47222 SUB INP/OBS CARE 2/35MIN Diagnoses Sepsis A41.9 ARF (acute renal failure) N17.9 HTN (hypertension) I10
[2023-11-02 06:40] LABS: BUN Creatinine Ratio 20.8 (10-20); Calcium 9.4 mg/dl (8.6-10.3); Creatinine Clr Calc Pharmacy 101.7 ml/min; Est GFR (African American) 95.1 ml/min; Potassium 3.7 mmol/L (3.5-5.1)
[2023-11-02 09:29] LABS: Hematocrit (blood only) 26.6 % (42.0-52.0); Mean Corpuscular Hgb Conc 30.1 g/dL (32.0-36.0); Mean Corpuscular Volume 83.1 fL (80.0-100.0); Mean Platelet Volume 9.5 fL (9.4-12.4); Platelet Count 230 K/uL (130-400); RDW Coefficient of Variation 14.8 % (11.5-14.5); RDW Standard Deviation 45.1 fL (36.4-46.3); White Blood Count 7.16 K/ul (4.8-10.8)
--- NOTE | 2023-11-02 22:36 | Hospitalist Progress Note ---
Date of Service November 02, 2023 Assessment & Plan (1) Sepsis: Plan: Sepsis, secondary to multifocal pneumonia, suspect gram negative pneumonia history of copd with CHF. Acute diastolic heart failure treated with diuretic dosing change every 48 hours Metabolic alkalosis with 1 dose of Diamox on 10/27/2023, 10/27, 10/28, 10/29 and 10/30 severe acute respiratory acidosis and Required intubation. Initially required pressors/ norepinephrine vasopressin and phenylephrine --Extubated on 10/16 Now on Nasal cannula. Awaiting rehab placement Acetazolamide for metabolic alkalosis. Patient remains negative. Blood cultures, sputum culture negative to date, Respiratory biofire negative, random cortisol appropriate' respiratory culture is negative MRSA nares positive completed levaquin,vancomycin-with local skin infection at IV site will have short course of doxycycline this is improving. Reviewed BMP on 11/01 hold diuretics on 11/01 (2) ARF (acute renal failure): Plan: Resolved at this time, hyponatremia is also resolved Hypokalemia replete pt has a hypochloremia with compensation for respiratory acidosis, wearing bipap at night 1 dose of diamox on 10/27/2023 Rhabdomyolysis improved (3) HTN (hypertension): Plan: Lisinopril held for renal failure, sepsis, and hypotension requiring pressors initial concern for systolic HF ruled out as echo show preserved EF no RWMA now concern for acute diastolic heart failure, on lasix 20 mg every 48 hour elevated troponin from demand ischemia Plan Lovenox for DVT prevention 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 Review of Systems Review of Systems: All systems reviewed & are unremarkable except as noted in HPI & below Physical Exam Physical Exam: Patient is lying in bed. Comfortable on nasal cannula No longer using accesory muscles to breath. improved lung sounds, less rhonchi and wheezing. Heart RRR Results & Data Results & Data Vital Signs (Past 12 Hours) Vital Signs Temp Pulse Pulse Resp BP Pulse Ox O2 Del Method 11/02/23 20:00 Nasal Cannula 11/02/23 19:55 36.6 C 82 18 118/77 97 Nasal Cannula 11/02/23 16:27 91 H 11/02/23 15:12 36.7 C 84 19 122/79 99 Nasal Cannula 11/02/23 11:49 36.5 C 88 20 115/74 98 Nasal Cannula O2 Flow Rate 11/02/23 20:00 5 11/02/23 19:55 5 11/02/23 16:27 11/02/23 15:12 11/02/23 11:49 5 PG Care Time/CCT Total # of Minutes Spent Total Time Spent with Patient: Total time spent is greater than 50% in coordination of care (as documented) at patient's floor/unit and/or counseling patient: Coding Level of Care Code 54916 SUB INP/OBS CARE 2/35MIN Diagnoses Sepsis A41.9 ARF (acute renal failure) N17.9 HTN (hypertension) I10
[2023-11-03 06:34] LABS: Hematocrit (blood only) 29.3 % (42.0-52.0); Hemoglobin 8.8 g/dl (14.0-18.0); Mean Corpuscular Hemoglobin 25.1 pg (25.0-34.0); Mean Corpuscular Volume 83.5 fL (80.0-100.0); Mean Platelet Volume 9.1 fL (9.4-12.4); Platelet Count 229 K/uL (130-400); RDW Standard Deviation 45.3 fL (36.4-46.3); Red Blood Count 3.51 M/uL (4.70-6.10)
[2023-11-03 06:41] LABS: BUN Creatinine Ratio 21.4 (10-20); Calcium 9.8 mg/dl (8.6-10.3); Creatinine Clr Calc Pharmacy 117.5 ml/min; Est GFR (African American) 105.7 ml/min; Est GFR (Non-African American) 91.2 ml/min; Potassium 3.7 mmol/L (3.5-5.1)
--- NOTE | 2023-11-03 09:36 | Discharge Summary ---
Date of Service November 03, 2023 Admission HPI Per Admitting Provider Terrance Dueñas is a 67-year-old male with past medical history of COPD, CHF, emphysema who is excepted overnight as a transfer from [facility] where he presented with fever, confusion, hypoxia, and falls. At that facility he was febrile, tachycardic, hypoxic to the 60s, and was reported to have a white blood cell count of 41 and creatinine of 4.9 (confirmed on paperwork to be less than 1), and with potassium of 4.9. Patient was treated at that facility with 2 L of crystalloid, Zosyn, and vancomycin. Placement was placed on BiPAP for respiratory distress. Due to concern for his respiratory status, potential need for intubation patient was recommended for transfer where critical care services were available. Patient was accepted for transfer overnight and arrived at the ICU at approximately 10:30 AM on 10/09. Patient had received a dose of morphine with some sedation and worsened hypotension while in room. Discussed by dimitris with [facility]. - CBC 0146hrs: Leukocyte count 41, hgb 9.9 - Creatinine: 4.76 - Lactic 1.3 - Blood Cultures: Drawn at 0016, ngtd - No prior labs for comparison. Collateral collected from patient's Paradise Dueñas who is available at time of admission. She is also billable by phone at [phone] for updates. She reports that Terrance has a history of COPD and CHF. He is not on any blood thinners other than aspirin and has not had a history of blood clots. He does have a history of heart failure without prior history of stents or heart attack, is generally compliant with his Lasix. She reports he was in his normal state of health up until about 4 days ago. At that time he was trying to clean under a table when he fell and struck his buttock. He had had low back pain and sciatica although she does not remember which side. He did not have a head strike or loss of consciousness. Was doing okay until Saturday, but again slipped and fell striking his abdomen on the counter and did not seem to recover strength from that time. He was not having any cough, fever, or chills at that time. Approximately 2 days ago/Saturday prior to admission he did start to develop increased cough, thick and sputum production, chills, and felt clammy. His breathing worsened and his normal COPD cough seemed much worse. He did not have any bleeding that she was aware of and did not syncopize. He did not improve over the next day, and then became very confused and talking on the phone did not recognize who she was. Due to his worsening and confusion they then presented to [facility]. She confirms this medications are aspirin 81 mg, Trelegy inhaler, nebulizers with albuterol as needed, lisinopril 20 mg, Lasix 40 mg, oxy/apap for back pain. No blood thinners/warfarin/DOAC. His PCP is Dr. Mcgrath in [place] He has no history of renal failure to her knowledge, and she believes that his last blood work his kidney numbers were normal. His creatinine of greater than 4 is believed to be new. She notes that for the 24 hours prior to presenting to [facility] he did not have any urine production at all despite taking his Lasix. Medical History: Reviewed Medications: Reviewed Surgical History: Reviewed Family history: Reviewed Allergies: Reviewed. No known drug allergies Social History: Remote tobacco abuse in remission. Rare social alcohol use once or twice a year. No recreational drug use Code Status: Full code [facility] lab review: Vitals: 38.6/131 bpm/respiratory rate 30/BP 110/72/SpO2 97% on nonrebreather, hypoxic at 70% prior. ABG pH 7.25/pCO2 63 Chest x-ray:? Obscured right heart border silhouette suspicious for pleural effusion versus underlying consolidative process BP 90/50 ABG 0345 hrs.: pH 7.25/pCO2 63/pO2 77/HCO3 26.9 VBG 0424 hrs.: pH 7.23/pCO2 68/HCO3 27.7 Principal Diagnosis sepsis Discharge Exam Patient is lying in bed. Comfortable on nasal cannula No longer using accesory muscles to breath. improved lung sounds, less rhonchi and wheezing. Heart RRR Discharge Data Allergies Allergy/AdvReac Type Severity Reaction Status Date / Time No Known Allergies Allergy Unknown Verified 10/13/03 16:57 Consultations 10/10/23 10:57 Consult Tnt Powder Worker Routine 10/21/23 10:42 Consult Pulmonology Routine 11/03/23 09:31 [facility] [place] Routine Ordered Studies 10/10/23 12:53 sono, invasive monitoring [US point of care ultrasound] Urgent 10/13/23 08:44 CT chest diagnostic wo con Routine 10/30/23 11:00 Fluoro video [FL video swallow] Routine Diabetes Follow up Diabetes Follow-up Needed for Newly Diagnosed Diabetes Hospital Course (1) Sepsis: Sepsis, septic shock secondary to multifocal pneumonia, suspect gram negative pneumonia history of copd with CHF. Acute diastolic heart failure treated with diuretic complicated with Acute kidney injury. Metabolic alkalosis with 1 dose of Diamox on 10/27/2023, 10/27, 10/28, 10/29 and 10/30 Patient improved with antibiotics and was extubated but remained volume overloaded. Patient required lasix but then this was complicated by metabolic alkalosis and patient was treated with diamox. Patient since admission had about 25 liters net negative and is breathing better. Creatinine has also normalized. Will recommend at [facility] patient continues to weigh himself daily. Will resume lasix at 40 mg every other day. But will recommend that if he is positive or has weight gain by over 3 pounds, to increase his lasix. Prior to this admission, patient has required about 80 mg in the AM and 40 mg in the evening. Given his renal failure, this could have been too much for him. In regards to pain medicine, patient previous was on hydrocodone/acetaminophen. However he is now on tylenol PO 1000 gr Q8h and diclofenac. In the past 5 days he has only required about 3 doses of tylenol. Patient was also diagnosed with Diabetes Mellitus type II: HbA1C: 7.[address] metformin Recommend followup with Heart failure clinic and with PCP in 1-2 weeks. severe acute respiratory acidosis and Required intubation. Initially required pressors/ norepinephrine vasopressin and phenylephrine--Extubated on 10/16 Now on 4 liters nasal cannula Blood cultures, sputum culture negative to date, Respiratory biofire negative, random cortisol appropriate' respiratory culture is negative MRSA nares positive completed levaquin,vancomycin-with local skin infection at IV site will have short course of doxycycline this is improving. Reviewed BMP on 11/01 hold diuretics on 11/01 (2) ARF (acute renal failure): Resolved at this time, hyponatremia is also resolved Hypokalemia replete pt has a hypochloremia with compensation for respiratory acidosis, wearing bipap at night 1 dose of diamox on 10/27/2023 Rhabdomyolysis improved (3) HTN (hypertension): Lisinopril held for renal failure, sepsis, and hypotension requiring pressors initial concern for systolic HF ruled out as echo show preserved EF no RWMA now concern for acute diastolic heart failure, on lasix 20 mg every 48 hour elevated troponin from demand ischemia Plan Lovenox for DVT prevention 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 [Primary Care Provider] - 11/13/23 10:00 am Diet: Heart Healthy and Low Sodium (2gm) Addtl Attending Provider Instructions: Patient seen for Pneumonia and fluid overload. Likely component of septic shock, Diastolic CHF with SUZY. Patient improved but remained volume overloaded. Patient required lasix but then this was complicated by metabolic alkalosis and patient was treated with diamox. Patient has since had about 25 liters negative and is breathing better. Creatinine has also normalized. Will recommend at [facility] patient continues to weigh himself daily. His first standing weight at [facility] should be considered his dry weight. Will resume lasix at 40 mg every other day. But will recommend that if he is positive or has weight gain by over 3 pounds, to increase his lasix. Prior to this admission, patient has required about 80 mg in the AM and 40 mg in the evening. Given his renal failure, this could have been too much for him. In regards to pain medicine, patient previous was on hydrocodone/acetaminophen. However he is now on tylenol PO 1000 gr Q8h and diclofenac. In the past 3 days he has only required 5 days, he has only required about 3 doses of tylenol. Patient was also diagnosed with Diabetes HbA1C: 7.[address] metformin Recommend followup with Heart failure clinic and with PCP in 1-2 weeks. Pending Studies at Discharge: No Stand-Alone Forms: [facility] Skilled Items Patient informed of condition?: Yes DNR: No Discharge Level of Care: Acute rehab Communicable Disease: No Discharge Prognosis: Stable Lines: None Urinary Catheter: No Medications and DC Order Prescriptions: New acetaminophen [Tylenol Extra Strength] 500 mg Tablet 1,000 mg PO Q8H PRN (Reason: pain) Qty: 30 0RF diclofenac sodium [Voltaren Arthritis Pain] 1 % Gel 2 g EXT QID PRN (Reason: pain) Qty: 100 0RF metformin 500 mg tablet extended release 24 hr 500 mg PO DAILY Qty: 30 0RF Continued simvastatin 20 mg tablet 20 mg PO HS Trelegy Ellipta 100-62.5-25 mcg blister with device 1 inh INHALATION DAILY Changed furosemide 40 mg tablet 40 mg PO Q OTHER DAY Qty: 30 0RF Discontinued hydrocodone-acetaminophen 5-325 mg tablet 1 tab PO TID PRN (Reason: Pain) lisinopril 20 mg tablet 20 mg PO DAILY Discharge Orders: Discharge Order- CHF (Routine); Ordered 11/03/23 Ordered By: Morgan Baker/Other Patient Handouts: Diabetes: Meal Planning, Type 2 Diabetes Admission Data Admit Date/Time: 10/10/23 10:32 Attending Provider: Morgan Hernandez Admit Provider: Ju Navarrete Primary Care Provider: Joselito Berrios Other Providers: Teodoro Hutton; [facility]; Merlene Sandoval; Lillie Childers; Felipe Carmona; Sveta Herbert Other Interventions: Discharge Summary Assessment (RN) Last Done: 11/03/23 12:06 Coding Level of Care Code 92658 INP/OBS DISCH >30 MIN Diagnoses Sepsis A41.9 ARF (acute renal failure) N17.9 HTN (hypertension) I10
[2023-11-03] MEDS: acetaZOLAMIDE 500 MG in SYRINGE 0 ML IV STA (10:31)
--- NOTE | 2023-11-03 10:40 | XRay Report ---
XR chest 2V PA/lateral HISTORY: 67 years-old Male hypoxia acute hypoxia COMPARISON: 10/29/2023 TECHNIQUE: PA and lateral views of the chest FINDINGS: Cardiac silhouette is enlarged. Multifocal airspace opacities redemonstrated with linear densities wi thin the mid and lower lung zones. Blunting of the costophrenic angles. No pneumothorax. Bones appear grossly intact. IMPRESSION: No significant changes in the multifocal bilateral mid to lower lung zone predominant air space opacities. ACT 112: Negative or not required by law. The above report was generated using voice recognition software. It may contain grammatical, syntax o r spelling errors. Electronically signed by: Kaleb Douglass M.D. 11/03/2023 10:38 AM
== END 2023-11-03 12:50 | DRG 870 ==
LOC: 1E 10:32 → SUATTDRO 10:32 → 4W 10-20 13:16
DX: G72.81 Critical illness myopathy; E87.5 Hyperkalemia; E87.6 Hypokalemia; J15.69 Pneumonia due to other Gram-negative bacteria; J44.0 Chronic obstructive pulmonary disease with (acute) lower respiratory infection; E87.1 Hypo-osmolality and hyponatremia; D64.9 Anemia, unspecified; J98.09 Other diseases of bronchus, not elsewhere classified; Z87.891 Personal history of nicotine dependence; R29.6 Repeated falls; Z68.41 Body mass index [BMI] 40.0-44.9, adult; E87.4 Mixed disorder of acid-base balance; Z99.81 Dependence on supplemental oxygen; F41.9 Anxiety disorder, unspecified; L08.9 Local infection of the skin and subcutaneous tissue, unspecified; Z78.1 Physical restraint status; I50.31 Acute diastolic (congestive) heart failure; A41.50 Gram-negative sepsis, unspecified; R84.5 Abnormal microbiological findings in specimens from respiratory organs and thorax; E66.2 Morbid (severe) obesity with alveolar hypoventilation; R45.1 Restlessness and agitation; J80 Acute respiratory distress syndrome; N17.0 Acute kidney failure with tubular necrosis; R65.21 Severe sepsis with septic shock; I11.0 Hypertensive heart disease with heart failure; J43.9 Emphysema, unspecified; N39.0 Urinary tract infection, site not specified; M62.82 Rhabdomyolysis; I24.89 Other forms of acute ischemic heart disease